=== PATIENT | female | born 1965 | race Caucasian/White ===

== ENCOUNTER 2019-04-12 07:02 | Inpatient (IN) | payer BC ==
[~2019-04-12 07:02] MED LIST: Acetaminophen 325 MG Tab PO SCH; Bisacodyl 5 MG Tab PO PRN; Lidocaine 1%/Sod Bicarbonate in NS 8.4% 1 ML Syringe IDERM PRN; Magnesium Hydroxide 400 MG/5 ML Susp 30 ML Cup PO PRN; Morphine 2 MG/ML Syringe IVPUSH PRN; Naloxone 0.4 MG/ML SDV IVPUSH PRN; Ondansetron 4 MG/2 ML SDV IVPUSH PRN; Pregabalin 25 MG Cap PO SCH; Scopolamine 1.5 MG Transdermal Patch TOP SCH; Sennosides 8.6 MG Tab PO PRN; Sodium Chloride 0.9% 10 ML Syringe FLUSH PRN; ceFAZolin 2 GM in Premix Bag 1 BAG IV SCH; oxyCODONE ER 10 MG TAB.ER PO SCH
[2019-04-12] MEDS ORDERED: Ondansetron 4 MG/2 ML SDV ONE (07:13)
[2019-04-12] MEDS ORDERED: fentaNYL 100 MCG/2 ML SDV ONE ×2 (07:14→10:33)
[2019-04-12] MEDS ORDERED: Propofol 200 MG/20 ML SDV ONE ×5 (07:14→09:43)
[2019-04-12] MEDS ORDERED: ceFAZolin 1 GM Vial ONE (07:14)
[2019-04-12] MEDS ORDERED: Midazolam 1 MG/ML 2 ML SDV ONE (07:14)
[2019-04-12] MEDS ORDERED: Lidocaine 1% 4 ML ONE ×2 (07:14→10:56)
[2019-04-12] MEDS ORDERED: Vancomycin 1 GM SDV ONE (07:19)
[2019-04-12] MEDS ORDERED: Acetaminophen 325 MG Tab PO SCH (07:23)
--- NOTE | 2019-04-12 07:34 | PCM.PREANE ---
Preanesthetic Assessment - Anesthesia/Transfusion/Family Hx Anesthesia History: Prior Anesthesia Reaction Family History of Anesthesia Reaction: No Transfusion History: No Prior Transfusion(s) - Review of Systems General: No Symptoms Pulmonary: No Symptoms Cardiovascular: Dyspnea on Exertion Gastrointestinal: No Symptoms Neurological: Numbness (legs ) Other: Reports: None - Physical Assessment NPO Status Date: 04/11/19 NPO Status Time: 00:00 Pulse: 76 O2 Sat by Pulse Oximetry: 95 Respiratory Rate: 16 Blood Pressure: 128/97 Temperature: 36.3 C Height: 1.63 m Weight: 100.062 kg ASA Class: 2 Mental Status: Alert & Oriented x3 Airway Class: Mallampati = 1 Dentition: Reports: Normal Dentition Thyro-Mental Finger Breadths: 3 Mouth Opening Finger Breadths: 3 ROM/Head Extension: Full Lungs: Clear to Auscultation, Normal Respiratory Effort Cardiovascular: Regular Rate, Regular Rhythm - Lab Values: Laboratory Last Values MRSA (PCR) Negative 04/03/19 13:42 - Imaging/EKG Impressions: On chart SR - Allergies Allergies/Adverse Reactions: Allergies Allergy/AdvReac Type Severity Reaction Status Date / Time Sulfa (Sulfonamide Allergy Itching Verified 04/11/19 12:15 Antibiotics) - Anesthesia Plan Pre-Op Medication Ordered: Beta Michelle Beta Michelle: Metoprolol Med Last Dose Date: 04/12/19 Med Last Dose Time: 06:30 - Acknowledgements Anesthesia Type Planned: Spinal Pt an Appropriate Candidate for the Planned Anesthesia: Yes Alternatives and Risks of Anesthesia Discussed w Pt/Guardian: Yes Pt/Guardian Understands and Agrees with Anesthesia Plan: Yes PreAnesthesia Questionnaire HEENT History: Reports: Impaired Vision Other HEENT History: Wears glasses Cardiovascular History: Reports: Hypertension, Other (See Below) Other Cardiovascular History: SVT with successful ablation in 2008 Respiratory History: Reports: None Gastrointestinal History: Reports: Other (See Below) Other Gastrointestinal History: lyphocytic colitis, diverticula Genitourinary History: Reports: None, Pyelonephritis, UTI, 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: Musculoskeletal History: Reports: Fibromyalgia, Osteoarthritis Other Musculoskeletal History: polyarthralgia, hypermobile joints, trochanertic bursitis of bilateral hips, pes anserinus bilateral knees, IT band syndrome Psychiatric History: Reports: Anxiety, Depression, Other (See Below) Other Psychiatric History: fatigue Endocrine/Metabolic History: Reports: Vitamin D Deficiency Other Endocrine/Metabolic History: pituitary microadenoma with HCC Hematologic History: Reports: Other (See Below) Other Hematologic History: HLA B27 POSITIVE Immunologic History: Reports: None Oncologic (Cancer) History: Reports: None Dermatologic History: Reports: None - Past Surgical History Head Surgeries/Procedures: Reports: None HEENT Surgical History: Reports: None Cardiovascular Surgical History: Reports: Cardiac Ablation Respiratory Surgical History: Reports: None GI Surgical History: Reports: Appendectomy, Cholecystectomy, Hernia, Inguinal, Hernia Repair/Other Female Surgical History: Reports: Hysterectomy Neurological Surgical History: Reports: C-Spine, Other (See Below) Other Neurological Surgeries/Procedures: C5 fusion in 2004 Musculoskeletal Surgical History: Reports: Other (See Below) Other Musculoskeletal Surgeries/Procedures:: C4/5 fusion Oncologic Surgical History: Reports: None Dermatological Surgical History: Reports: None - SUBSTANCE USE Smoking Status *Q: Never Smoker Tobacco Use Within Last Twelve Months: No Second Hand Smoke Exposure: No Days Per Week of Alcohol Use: 0 Number of Drinks Per Day: 0 Total Drinks Per Week: 0 Recreational Drug Use History: Yes Recreational Drug Type: Reports: Other (see below) - HOME MEDS Home Medications: Home Meds DULoxetine [Cymbalta] 60 mg PO DAILY 03/16/14 [History] Metoprolol Succinate [Toprol XL] 50 mg PO DAILY 03/16/14 [History] Cholecalciferol (Vitamin D3) [Vitamin D] 5,000 unit PO DAILY 03/27/16 [History] hydroCHLOROthiazide [Hydrochlorothiazide] 12.5 mg PO DAILY 03/27/16 [History] ALPRAZolam [Xanax] 0.25 mg PO Q12H PRN 04/11/19 [History] Gabapentin [Neurontin] 100 mg PO BEDTIME 04/11/19 [History] - CURRENT (IN HOUSE) MEDS Current Meds: Current Medications Acetaminophen (Tylenol) 975 mg PO ONETIME CAREY Stop: 04/12/19 13:00 Last Admin: 04/12/19 07:27 Dose: 975 mg Bisacodyl (Dulcolax) 5 mg PO DAILY PRN PRN Reason: Constipation Cyclobenzaprine HCl (Flexeril) 10 mg PO BID PRN PRN Reason: Spasms Docusate Sodium (Colace) 100 mg PO BID CAREY Famotidine (Pepcid) 20 mg PO Q12H [facility] Lactated Ringer's (Ringers, Lactated) 1,000 mls @ 125 mls/hr IV ASDIRECTED [facility] Stop: 04/12/19 23:00 Cefazolin Sodium/Dextrose 2 gm (/ Premix) 50 mls @ 100 mls/hr IV Q8H [facility] Stop: 04/12/19 22:29 Ketorolac Tromethamine (Toradol) 15 mg IVPUSH Q6H PRN PRN Reason: Pain Lidocaine/Sodium Bicarbonate (Buffered Lidocaine 1% In Ns 8.4%) 0.25 ml IDERM ONETIME PRN PRN Reason: Prior to IV Start Stop: 04/12/19 18:00 Magnesium Hydroxide (Milk Of Magnesia) 30 ml PO BID PRN PRN Reason: Constipation Morphine Sulfate (Morphine) 2 mg IVPUSH Q2H PRN PRN Reason: Breakthrough Pain Naloxone HCl (Narcan) 0.1 mg IVPUSH Q5M PRN PRN Reason: Oversedation Ondansetron HCl (Zofran) 4 mg IVPUSH Q6H PRN PRN Reason: Nausea/Vomiting Oxycodone HCl (Oxycontin) 10 mg PO ONETIME [facility] Stop: 04/12/19 13:00 Last Admin: 04/12/19 07:27 Dose: 10 mg Oxycodone/Acetaminophen (Percocet 325-5 Mg) 1 - 2 tab PO Q4H PRN PRN Reason: Pain Pregabalin (Lyrica) 50 mg PO ONETIME [facility] Stop: 04/12/19 13:00 Last Admin: 04/12/19 07:27 Dose: 50 mg Rivaroxaban (Xarelto) 10 mg PO DAILY [facility] Scopolamine (Transderm-Scop) 1.5 mg TOP ONETIME [facility] Stop: 04/12/19 18:00 Last Admin: 04/12/19 07:28 Dose: 1.5 mg Senna (Senna) 8.6 mg PO BID PRN PRN Reason: Constipation Sodium Chloride (Saline Flush) 10 ml FLUSH ASDIRECTED PRN PRN Reason: Keep Vein Open Stop: 04/12/19 18:00 Discontinued Medications Acetaminophen (Tylenol) 650 mg PO ONETIME [facility] Stop: 04/12/19 13:00 Bupivacaine HCl (Marcaine 0.25%) Confirm Administered Dose 30 ml .ROUTE .STK- MED ONE Stop: 04/12/19 07:20 Cefazolin Sodium (Ancef) Confirm Administered Dose 2 gm .ROUTE .STK-MED ONE Stop: 04/12/19 07:15 Cefazolin Sodium (Ancef) Confirm Administered Dose 2 gm .ROUTE .STK-MED ONE Stop: 04/12/19 07:20 Morphine Sulfate 8 mg/Epinephrine HCl 0.3 mg/Cefuroxime Sodium 750 mg/Ketorolac Tromethamine 30 mg/Sodium Chloride 27.9 ml 0 mg .XX ONETIME ONE Stop: 04/12/19 07:16 Fentanyl (Sublimaze) Confirm Administered Dose 100 mcg .ROUTE .STK-MED ONE Stop: 04/12/19 07:15 Lidocaine HCl (Xylocaine-Mpf 1%) Confirm Administered Dose 4 mls @ as directed .ROUTE .STK-MED ONE Stop: 04/12/19 07:15 Iodine (Iodine 2% Mild Tincture) Confirm Administered Dose 30 ml .ROUTE .STK- MED ONE Stop: 04/12/19 07:20 Midazolam HCl (Versed 1 Mg/Ml) Confirm Administered Dose 2 mg .ROUTE .STK-MED ONE Stop: 04/12/19 07:15 Ondansetron HCl (Zofran) Confirm Administered Dose 4 mg .ROUTE .STK-MED ONE Stop: 04/12/19 07:14 Propofol (Diprivan 20 Ml) Confirm Administered Dose 200 mg .ROUTE .STK-MED ONE Stop: 04/12/19 07:15 Tranexamic Acid (Cyklokapron) Confirm Administered Dose 1,000 mg .ROUTE .STK- MED ONE Stop: 04/12/19 07:20 Vancomycin HCl (Vancomycin) Confirm Administered Dose 1 gm .ROUTE .STK-MED ONE Stop: 04/12/19 07:20
[2019-04-12] MEDS: Lactated Ringers 1,000 ML IV SCH ×2 (07:35→11:06)
[2019-04-12] MEDS ORDERED: Ketorolac 15 MG/ML SDV IVPUSH PRN (08:00)
[2019-04-12] MEDS: Iodine/Sodium Iodide 2% Tincture 30 ML Bottle ONE ×2 (09:25→09:32)
[2019-04-12] MEDS: ceFAZolin 1 GM Vial ONE ×2 (09:25→09:38)
[2019-04-12] MEDS: Bupivacaine 0.25% 30 ML SDV ONE ×2 (09:26→09:43)
[2019-04-12] MEDS: Morphine 8 MG, EPINEPHrine 0.3 MG, Cefuroxime 750 MG, Ketorolac 30 MG, Sodium Chloride ... ONE ×15 (09:27→12:17)
[2019-04-12] MEDS: Vancomycin 1 GM SDV ONE ×2 (09:27→09:45)
[2019-04-12] MEDS ORDERED: ePHEDrine/Normal Saline 25 MG/5 ML Syringe ONE (09:31)
[2019-04-12] MEDS ORDERED: Ketorolac 30 MG/ML SDV IVPUSH PRN (10:27)
[2019-04-12] MEDS ORDERED: HYDROmorphone 0.5 MG/0.5 ML Syringe IVPUSH PRN (10:27)
--- NOTE | 2019-04-12 10:29 | PCM.POSTAN ---
POST ANESTHESIA ASSESSMENT - MENTAL STATUS Mental Status: Alert, Oriented - VITAL SIGNS Pulse Rate: 104 SaO2: 93 Resp Rate: 12 Blood Pressure: 95/60 Temperature: 36.7 C - RESPIRATORY Respiratory Status: Respiratory Rate WNL, Airway Patent, O2 Saturation Stable, Supplemental Oxygen - CARDIOVASCULAR CV Status: Pulse Rate WNL, Blood Pressure Stable - GASTROINTESTINAL GI Status: No Symptoms - PAIN Pain Score: 8 - POST OP HYDRATION Hydration Status: Adequate & Stable - OBSERVATIONS Free Text/Narrative:: no anesthesia complications noted
[2019-04-12] MEDS ORDERED: ALPRAZolam 0.25 MG Tab PO PRN (10:33)
[2019-04-12] MEDS: fentaNYL 100 MCG/2 ML SDV IVPUSH PRN ×2 (10:34→10:36)
[2019-04-12] MEDS ORDERED: Ropivacaine 0.5% 5 MG/ML 30 ML SDV ONE (10:44)
[2019-04-12] MEDS ORDERED: EPINEPHrine 1 MG/ML SDV ONE (10:44)
--- NOTE | 2019-04-12 10:49 | PCM.OPNOTE ---
- General Post-Op/Procedure Note Date of Surgery/Procedure: 04/12/19 Operative Procedure(s): right total knee arthroplasty Pre Op Diagnosis: right knee osteoarthrosis Post-Op Diagnosis: Same Anesthesia Technique: Local, MAC, Spinal Primary Surgeon: Theo aHnley Anesthesia Provider: [place] Heat Treat Worker: Ely Dimas Heat Treat Worker: Britt Thornton EBJosé Miguel in mLs: 550 Complications: None Condition: Good Free Text/Narrative:: size 4/4 9mm 32x10
--- NOTE | 2019-04-12 10:51 | PCM.CONS ---
H&P History of Present Illness - General Date of Service: 04/12/19 Admit Problem/Dx: Admission Diagnosis/Problem Admission Diagnosis/Problem Osteoarthritis of knee Source of Information: Patient, Old Records, Provider, RN, RN Notes Reviewed History Limitations: Reports: No Limitations - History of Present Illness Initial Comments - Free Text/Narative: Beni Pagan is a 53 yo female patient of Dr. Hanley who is post-operative day 0 of right TKA. Hospital medicine was consulted for post-operative medical care of the conditions listed below. At this time she is resting comfortably in bed. Pain is controlled. She denies any chest pain, shortness of breath, palpitations , nausea, or vomiting. She carries a history of: HTN, SVT s/p ablation in 2008, lyphocytic colitis, diverticula, recurrent UTI, fibromyalgia, osteoarthritis, polyarthralgia, hypermobile joint, Hx/o anserinus of bilateral knees, hx/o trochanteric bursitis of bilateral hips, hx/o IT band syndrome, Anxiety, depression, chronic fatigue, vitamin D deficiency, pituitary microadenoma with HCC, HLA B27 positive, C4/5 fusion. She was never a smoker. She is a full code. Her primary care provider is Yandy michael PA-C . Right Knee Pain Score (Numeric/FACES): 3 - Related Data Allergies/Adverse Reactions: Allergies Allergy/AdvReac Type Severity Reaction Status Date / Time Sulfa (Sulfonamide Allergy Itching Verified 04/12/19 07:53 Antibiotics) Home Medications: Home Meds DULoxetine [Cymbalta] 60 mg PO DAILY 03/16/14 [History] Metoprolol Succinate [Toprol XL] 50 mg PO DAILY 03/16/14 [History] Cholecalciferol (Vitamin D3) [Vitamin D] 5,000 unit PO DAILY 03/27/16 [History] hydroCHLOROthiazide [Hydrochlorothiazide] 12.5 mg PO DAILY 03/27/16 [History] ALPRAZolam [Xanax] 0.25 mg PO Q12H PRN 04/11/19 [History] Gabapentin [Neurontin] 100 mg PO BEDTIME 04/11/19 [History] Past Medical History HEENT History: Reports: Impaired Vision Other HEENT History: Wears glasses Cardiovascular History: Reports: Hypertension, Other (See Below) Other Cardiovascular History: SVT with successful ablation in 2008 Respiratory History: Reports: None Gastrointestinal History: Reports: Other (See Below) Other Gastrointestinal History: lyphocytic colitis, diverticula Genitourinary History: Reports: None, Pyelonephritis, UTI, 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: Musculoskeletal History: Reports: Fibromyalgia, Osteoarthritis Other Musculoskeletal History: polyarthralgia, hypermobile joints, trochanertic bursitis of bilateral hips, pes anserinus bilateral knees, IT band syndrome Psychiatric History: Reports: Anxiety, Depression, Other (See Below) Other Psychiatric History: fatigue Endocrine/Metabolic History: Reports: Vitamin D Deficiency Other Endocrine/Metabolic History: pituitary microadenoma with HCC Hematologic History: Reports: Other (See Below) Other Hematologic History: HLA B27 POSITIVE Immunologic History: Reports: None Oncologic (Cancer) History: Reports: None Dermatologic History: Reports: None - Past Surgical History Head Surgeries/Procedures: Reports: None HEENT Surgical History: Reports: None Cardiovascular Surgical History: Reports: Cardiac Ablation Respiratory Surgical History: Reports: None GI Surgical History: Reports: Appendectomy, Cholecystectomy, Hernia, Inguinal, Hernia Repair/Other Female Surgical History: Reports: Hysterectomy Neurological Surgical History: Reports: C-Spine, Other (See Below) Other Neurological Surgeries/Procedures: C5 fusion in 2004 Musculoskeletal Surgical History: Reports: Other (See Below) Other Musculoskeletal Surgeries/Procedures:: C4/5 fusion Oncologic Surgical History: Reports: None Dermatological Surgical History: Reports: None Social & Family History - Tobacco Use Smoking Status *Q: Never Smoker Second Hand Smoke Exposure: No - Caffeine Use Caffeine Use: Reports: Coffee - Alcohol Use Days Per Week of Alcohol Use: 0 Number of Drinks Per Day: 0 Total Drinks Per Week: 0 - Recreational Drug Use Recreational Drug Use: Yes Drug Use in Last 12 Months: Yes Recreational Drug Type: Reports: Other (see below) Other Recreational Drug Type: CBD oil- sublingual PRN pain Recreational Drug Use Frequency: Weekly H&P Review of Systems - Review of Systems: Review Of Systems: See Below General: Reports: No Symptoms. Denies: Fever, Chills HEENT: Reports: No Symptoms. Denies: Headaches, Sore Throat Pulmonary: Reports: No Symptoms. Denies: Shortness of Breath, Wheezing, Cough, Sputum Cardiovascular: Reports: No Symptoms. Denies: Chest Pain, Palpitations, Dyspnea on Exertion, Edema Gastrointestinal: Reports: No Symptoms. Denies: Abdominal Pain, Constipation, Diarrhea, Nausea, Vomiting Genitourinary: Reports: No Symptoms. Denies: Pain Musculoskeletal: Reports: Leg Pain Skin: Reports: No Symptoms. Denies: Cyanosis Psychiatric: Reports: No Symptoms. Denies: Confusion Neurological: Reports: Numbness (improving ). Denies: Dizziness Hematologic/Lymphatic: Reports: No Symptoms Immunologic: Reports: No Symptoms Exam - Exam Exam: See Below - Vital Signs Vital Signs: Last Vital Signs Temp 98.1 F 04/12/19 10:29 Pulse 104 H 04/12/19 10:29 Resp 11 L 04/12/19 10:45 BP 113/79 04/12/19 10:45 Pulse Ox 100 04/12/19 10:45 Weight: 220 lb 9.6 oz - Exam Quality Assessment: DVT Prophylaxis General: Alert, Oriented, Cooperative HEENT: Conjunctiva Clear, EACs Clear, EOMI, Hearing Intact, Mucosa Moist & [place] , Nares Patent, PERRLA Neck: Supple, Trachea Midline Lungs: Clear to Auscultation, Normal Respiratory Effort Cardiovascular: Regular Rate, Regular Rhythm GI/Abdominal Exam: Normal Bowel Sounds, Soft, Non-Tender, No Organomegaly, No Distention (Female) Exam: Deferred Rectal (Female) Exam: Deferred Back Exam: Normal Inspection, Full Range of Motion Extremities: No Pedal Edema, Normal Capillary Refill, Leg Pain, Limited Range of Motion, Other (Bandage in place on right leg. Bandage is dry and intact. Cooling pack in place ) Peripheral Pulses: 2+: Radial (L), Radial (R), Dorsalis Pedis (L), Dorsalis Pedis (R) Skin: Warm, Dry, Intact Neurological: Cranial Nerves Intact (Grossly ) Neuro Extensive - Mental Status: Alert, Oriented x3, Normal Mood/Affect Consult PN Assessment/Plan POD#: 0 Procedures: Procedures ASSAY OF LIPASE (03/27/16) ASSAY OF TROPONIN QUANT (12/24/14) BX BREAST 1ST LESION STRTCTC (09/26/15) COMPLETE CBC W/AUTO DIFF WBC (03/27/16) COMPREHEN METABOLIC PANEL (03/27/16) CT ABD & PELV W/CONTRAST (03/27/16) ECG/MONITORING AND ANALYSIS (12/25/14) EMERGENCY DEPT VISIT (03/27/16) FIBRIN DEGRADATION QUANT (12/24/14) HEPATOBIL SYST IMAGE W/DRUG (02/22/15) HYDRATE IV INFUSION ADD-ON (03/27/16) HYDRATION IV INFUSION INIT (03/16/14) MRI BRAIN STEM W/O & W/DYE (05/17/15) MRI CHEST SPINE W/O DYE (04/25/14) MRI LUMBAR SPINE W/O DYE (04/26/14) MRI NECK SPINE W/O & W/DYE (04/25/14) REMOTE 30 DAY ECG REV/REPORT (12/25/14) ROUTINE VENIPUNCTURE (03/27/16) THER/PROPH/DIAG INJ IV PUSH (03/27/16) TISSUE EXAM BY PATHOLOGIST (09/26/15) TX/PRO/DX INJ NEW DRUG ADDON (03/27/16) URINALYSIS AUTO W/SCOPE (03/27/16) X-RAY EXAM SURGICAL SPECIMEN (09/26/15) (1) S/P total knee arthroplasty SNOMED Code(s): 4959976152332, 443752486, 4865373467915 Code(s): Z96.659 - PRESENCE OF UNSPECIFIED ARTIFICIAL KNEE JOINT Priority: High Current Visit: Yes Qualifiers: Laterality: right Qualified Code(s): Z96.651 - Presence of right artificial knee joint (2) Osteoarthritis SNOMED Code(s): 983806536 Code(s): M19.90 - UNSPECIFIED OSTEOARTHRITIS, UNSPECIFIED SITE Priority: High Current Visit: Yes Qualifiers: Osteoarthritis location: knee Osteoarthritis type: primary Laterality: right Qualified Code(s): M17.11 - Unilateral primary osteoarthritis, right knee (3) HTN (hypertension) SNOMED Code(s): 76848897 Code(s): I10 - ESSENTIAL (PRIMARY) HYPERTENSION Priority: Medium Current Visit: Yes Qualifiers: Hypertension type: unspecified Qualified Code(s): I10 - Essential (primary ) hypertension (4) H/O supraventricular tachycardia SNOMED Code(s): 601548607793042 Code(s): Z86.79 - PERSONAL HISTORY OF OTHER DISEASES OF THE CIRCULATORY SYSTEM Priority: Medium Current Visit: No (5) History of cardiac radiofrequency ablation SNOMED Code(s): 819456302, 250307478 Code(s): Z98.890 - OTHER SPECIFIED POSTPROCEDURAL STATES Priority: Medium Current Visit: No (6) Lymphocytic colitis SNOMED Code(s): 13693834 Code(s): K52.832 - LYMPHOCYTIC COLITIS Priority: Low Current Visit: No (7) Recurrent UTI SNOMED Code(s): 567730646 Code(s): N39.0 - URINARY TRACT INFECTION, SITE NOT SPECIFIED Priority: Medium Current Visit: No (8) Fibromyalgia SNOMED Code(s): 567510878 Code(s): M79.7 - FIBROMYALGIA Priority: Medium Current Visit: No (9) Polyarthralgia SNOMED Code(s): 49462287 Code(s): M25.50 - PAIN IN UNSPECIFIED JOINT Priority: Medium Current Visit: No (10) Hypermobile joints SNOMED Code(s): 224763313 Code(s): M24.9 - JOINT DERANGEMENT, UNSPECIFIED Priority: Low Current Visit: No (11) Vitamin D deficiency SNOMED Code(s): 72350236 Code(s): E55.9 - VITAMIN D DEFICIENCY, UNSPECIFIED Priority: Low Current Visit: No (12) HLA B27 (HLA B27 positive) SNOMED Code(s): 652924201, 223387059 Code(s): Z15.89 - GENETIC SUSCEPTIBILITY TO OTHER DISEASE Priority: Medium Current Visit: No (13) History of fusion of cervical spine SNOMED Code(s): 5113516844652, 6630833382699 Code(s): Z98.1 - ARTHRODESIS STATUS Priority: Medium Current Visit: No (14) Anxiety SNOMED Code(s): 85061415 Code(s): F41.9 - ANXIETY DISORDER, UNSPECIFIED Priority: Low Current Visit: No Problem List Initiated/Reviewed/Updated: Yes Plan: I/P: Acute: S/P right total knee arthroplasty - post-operative day 0 -DVT prophylaxis and pain management per primary care team -PT/OT -IS/RT -Monitor oxygen saturation -Titrate oxygen as needed -Home medications reviewed - Hold HCTZ tomorrow -Vital signs stable -Monitor labs -Pre-operative Hgb was 15.7 -Pre-operative GFR was 66 Osteoarthritis of right knee -Pain management per primary care team Chronic: HTN SVT s/p ablation in 2008 lyphocytic colitis diverticula recurrent UTI fibromyalgia osteoarthritis polyarthralgia hypermobile joint Hx/o anserinus of bilateral knees hx/o trochanteric bursitis of bilateral hips hx/o IT band syndrome Anxiety depression chronic fatigue vitamin D deficiency pituitary microadenoma with HCC HLA B27 positive C4/5 fusion Plan: CM for discharge planning GI prophylaxis Home medications as indicated Other orders as listed above Routine AM labs She is a full code. Her PCP is Yandy Michael PA-C Thank you for allowing us to participate in the care of this patient!! Requesting Provider: Dr. Hanley Date Consult Requested: 04/12/19 Patient History Reviewed: Yes Admission H&P Reviewed: Yes Time Spent (in minutes): 40
--- NOTE | 2019-04-12 11:13 | PCM.SN ---
- Free Text/Narrative Note: Right selective femoral nerve block at the adductor canal for post-procedure pain control under US guidance requested by Dr. Hanley. Time Out: 1051 Start: 1059 End: 1103 Chart reviewed. Consent signed. Questions answered. Appropriate monitors applied. Time out performed. 1% lidocaine 4 ml local injected since spinal wore off. Right mid-shaft femur identified with ultrasound, scanning medially of femur, the femoral artery in the adductor canal visualized, and the femoral nerve located laterally to the artery. The skin was prepped lateral to the ultrasound probe with chlorahexadine times two. The 21ga 4 insulated block needle was inserted under direct ultrasound guidance into the adductor canal. 25mL of 0.5% ropivacaine with 1:200,000 epinephrine was injected circumferentially around the nerve with intermittent negative aspiration noted. Patient tolerated the procedure well. Sterile technique noted along with sterile gloves, mask, and sterile probe cover. See picture on progress note and vital signs on nurses notes. Block completed in PACU. Feli Terry CRNA
--- NOTE | 2019-04-12 11:14 | OR ---
DATE OF OPERATION: 04/12/2019 SURGEON: Theo Hanley MD OPERATION PERFORMED: Right total knee arthroplasty. PREOPERATIVE DIAGNOSIS: Right knee osteoarthrosis. POSTOPERATIVE DIAGNOSIS: Right knee osteoarthrosis. ANESTHESIA: Local MAC with spinal. ANESTHESIA PROVIDER: Eliud Day CRNA. EDUCATIONAL PROGRAM ASSISTANT: Ely Dimas PA-C, and Britt Thornton LPN. ESTIMATED BLOOD LOSS: 550 mL. COMPLICATIONS: None. CONDITION: Stable. IMPLANTS: 1. [place] size 4 press-fit CR femur. 2. Yina size 4 press-fit tibial base plate. 3. [place] size 4, 9 mm CS polyethylene insert. 4. [place] size 32 x 10 mm asymmetric press fit patella. DESCRIPTION OF PROCEDURE: The patient was identified in the preop holding area. Proper site was marked and identified by the surgeon. The patient was taken back to the operating theater. After adequate anesthesia, the patient's right lower extremity had a nonsterile tourniquet applied and it was sterilely prepped and draped in the usual sterile fashion. OR time-out was performed. The patient received 2 g IV Ancef. At this time, the right lower extremity was exsanguinated. Tourniquet was insufflated to 300 mmHg. Standard medial parapatellar incision was made. Medial parapatellar arthrotomy was created. Deep fibers of the MCL were raised and anterior fat pad was resected. At this time, attention was turned to the patella. Patella measured 22, it was resected to a 13 for a 32 x 10 mm patella. Drill holes were then drilled and found to be in adequate position. The drill was then drilled in the distal femur and the intramedullary distal femoral cutting guide was then placed. 8 mm was resected off the distal femur and was found to be an adequate resection. Sizing guide was placed. It was found to be a size 4 press-fit CR femur that was shown on the implant record at the beginning of this dictation. The drill holes were drilled for the epicondylar axis using [place] line and epicondyles as reference. At this time, the 4-in - 1 cutting block was placed. An anterior posterior and anterior and posterior chamfer cuts were then completed. Attention was turned to the tibia. The posterior medial lateral retractors were placed. The extramedullary tibial guide was placed. It was placed in the old footprint of the ACL. It was aligned with the center of the ankle and 0 degrees of slope, 9 mm was then resected off the unaffected side. There was found to be an acceptable reduction. At this time, posterior osteophytes were removed along with medial and lateral meniscus. A trial implant was placed with a correct sized tibia that was mentioned at the beginning of the dictation. A Yina size 4, 9 mm CS polyethylene insert was then placed. The patient's knee was brought through range of motion. The patella was tracking centrally and was stable to varus and valgus stress. Alignment was found to be roughly at 0 degrees. The tibia was stamped and drilled in proper rotation. The universal tibial base plate was impacted in place. Next, the Yina size 4 press-fit CR femur impacted into place and the [place] size 4, 9 mm CS polyethylene insert was placed. The patient's knee was brought into full extension. The patella was then press-fit in place at this time. Tourniquet was deflated. One liter dilute Betadine solution was irrigated through the knee along with 3 L of pulse lavage irrigation with Ancef. Periarticular injection was then completed. The patient's knee was brought through a range of motion. Knee was found to be stable to varus valgus stress, the patella was tracking centrally with full range of motion. At this time, a #2 barbed suture was used for closure of the medial parapatellar arthrotomy. Topical tranexamic acid was placed. 2-0 Vicryl was used subcutaneously, Prineo was used for the skin. The patient tolerated the procedure well and was sent to the PACU in stable condition. FABIANA /[id number] MTDD
--- NOTE | 2019-04-12 12:23 | CR ---
Right knee: AP and lateral portable views of the right knee were obtained. Comparison: No prior right knee exam. Knee prosthesis is seen. Components are aligned. Soft tissue air is noted from the surgical procedure. Underlying bony structures are intact. Impression: 1. Satisfactory postop radiographic appearance of recently placed right knee prosthesis. Diagnostic code #2
[2019-04-12] MEDS: Acetaminophen/oxyCODONE 325-5 MG Tab PO PRN ×2 (14:23→21:35)
[2019-04-12] MEDS: ceFAZolin 2 GM in Premix Bag 1 BAG IV SCH ×2 (14:25→23:03)
[2019-04-12] MEDS: Ketorolac 15 MG/ML SDV IVPUSH PRN (19:00)
[2019-04-12] MEDS ORDERED: Gabapentin 100 MG Cap PO SCH (21:00)
[2019-04-12] MEDS: Famotidine 20 MG Tab PO SCH (21:32)
[2019-04-12] MEDS: Docusate Sodium 100 MG Cap PO SCH (21:32)
[2019-04-12] MEDS: Cyclobenzaprine 10 MG Tab PO PRN (23:03)
[2019-04-13] MEDS: Ketorolac 15 MG/ML SDV IVPUSH PRN (02:38)
[2019-04-13] MEDS: Acetaminophen/oxyCODONE 325-5 MG Tab PO PRN ×3 (02:39→11:09)
--- NOTE | 2019-04-13 06:26 | PCM.CONSN ---
- General Info Date of Service: 04/13/19 Admission Dx/Problem (Free Text): Admission Diagnosis/Problem Admission Diagnosis/Problem Osteoarthritis of knee Functional Status: Reports: Pain Controlled, Tolerating Diet, Ambulating, Urinating, Incentive Spirometry. Denies: New Symptoms - Review of Systems General: Reports: No Symptoms. Denies: Fever, Chills HEENT: Reports: No Symptoms. Denies: Headaches, Sore Throat Pulmonary: Reports: No Symptoms. Denies: Shortness of Breath, Cough, Sputum, Wheezing Cardiovascular: Reports: No Symptoms. Denies: Chest Pain, Palpitations, Dyspnea on Exertion, Edema Gastrointestinal: Reports: No Symptoms. Denies: Abdominal Pain, Constipation, Diarrhea, Nausea, Vomiting Genitourinary: Reports: No Symptoms. Denies: Pain Musculoskeletal: Reports: Leg Pain Skin: Reports: No Symptoms Neurological: Reports: No Symptoms. Denies: Confusion Psychiatric: Reports: No Symptoms - Patient Data Vitals - Most Recent: Last Vital Signs Temp 97.9 F 04/13/19 04:32 Pulse 52 L 04/13/19 04:32 Resp 18 04/13/19 04:32 BP 105/51 L 04/13/19 04:32 Pulse Ox 93 L 04/13/19 04:32 Weight - Most Recent: 211 lb 1 oz I&O - Last 24 Hours: Intake & Output 04/12/19 04/12/19 04/13/19 14:59 22:59 06:59 Intake Total 450 550 Output Total 250 1650 Balance 200 -1100 Med Orders - Current: Current Medications Alprazolam (Xanax) 0.25 mg PO Q12H PRN PRN Reason: Anxiety Bisacodyl (Dulcolax) 5 mg PO DAILY PRN PRN Reason: Constipation Cholecalciferol (Vitamin D3) 5,000 unit PO DAILY [facility] Cyclobenzaprine HCl (Flexeril) 10 mg PO BID PRN PRN Reason: Spasms Last Admin: 04/12/19 23:03 Dose: 10 mg Docusate Sodium (Colace) 100 mg PO BID [facility] Last Admin: 04/12/19 21:32 Dose: 100 mg Duloxetine HCl (Cymbalta) 60 mg PO DAILY [facility] Famotidine (Pepcid) 20 mg PO Q12H [facility] Last Admin: 04/12/19 21:32 Dose: 20 mg Gabapentin (Neurontin) 100 mg PO BEDTIME [facility] Last Admin: 04/12/19 21:33 Dose: 100 mg Hydrochlorothiazide (Hydrochlorothiazide) 12.5 mg PO DAILY [facility] Cefazolin Sodium/Dextrose 2 gm (/ Premix) 50 mls @ 100 mls/hr IV Q8H [facility] Stop: 04/13/19 07:29 Last Admin: 04/12/19 23:03 Dose: 100 mls/hr Ketorolac Tromethamine (Toradol) 15 mg IVPUSH Q6H PRN PRN Reason: Pain Stop: 04/13/19 11:01 Last Admin: 04/13/19 02:38 Dose: 15 mg Magnesium Hydroxide (Milk Of Magnesia) 30 ml PO BID PRN PRN Reason: Constipation Metoprolol Succinate (Toprol Xl) 50 mg PO DAILY [facility] Morphine Sulfate (Morphine) 2 mg IVPUSH Q2H PRN PRN Reason: Breakthrough Pain Naloxone HCl (Narcan) 0.1 mg IVPUSH Q5M PRN PRN Reason: Oversedation Ondansetron HCl (Zofran) 4 mg IVPUSH Q6H PRN PRN Reason: Nausea/Vomiting Last Admin: 04/12/19 14:33 Dose: 4 mg Oxycodone/Acetaminophen (Percocet 325-5 Mg) 1 - 2 tab PO Q4H PRN PRN Reason: Pain Last Admin: 04/13/19 02:39 Dose: 2 tab Rivaroxaban (Xarelto) 10 mg PO DAILY [facility] Senna (Senna) 8.6 mg PO BID PRN PRN Reason: Constipation Discontinued Medications Acetaminophen (Tylenol) 650 mg PO ONETIME [facility] Stop: 04/12/19 13:00 Acetaminophen (Tylenol) 975 mg PO ONETIME [facility] Stop: 04/12/19 13:00 Last Admin: 04/12/19 07:27 Dose: 975 mg Bupivacaine HCl (Marcaine 0.25%) Confirm Administered Dose 30 ml .ROUTE .STK- MED ONE Stop: 04/12/19 07:20 Last Admin: 04/12/19 09:43 Dose: 30 ml Cefazolin Sodium (Ancef) Confirm Administered Dose 2 gm .ROUTE .STK-MED ONE Stop: 04/12/19 07:15 Cefazolin Sodium (Ancef) Confirm Administered Dose 2 gm .ROUTE .STK-MED ONE Stop: 04/12/19 07:20 Last Admin: 04/12/19 09:38 Dose: 2 gm Morphine Sulfate 8 mg/Epinephrine HCl 0.3 mg/Cefuroxime Sodium 750 mg/Ketorolac Tromethamine 30 mg/Sodium Chloride 27.9 ml 0 mg .XX ONETIME ONE Stop: 04/12/19 07:16 Last Admin: 04/12/19 12:17 Dose: Not Given Ephedrine Sulfate (Ephedrine In Ns) Confirm Administered Dose 25 mg .ROUTE .STK- MED ONE Stop: 04/12/19 09:32 Epinephrine HCl (Adrenalin) Confirm Administered Dose 1 mg .ROUTE .STK-MED ONE Stop: 04/12/19 10:45 Fentanyl (Sublimaze) Confirm Administered Dose 100 mcg .ROUTE .STK-MED ONE Stop: 04/12/19 07:15 Fentanyl (Sublimaze) 50 mcg IVPUSH Q5M PRN PRN Reason: Pain Stop: 04/12/19 18:00 Last Admin: 04/12/19 10:36 Dose: 100 mcg Fentanyl (Sublimaze) Confirm Administered Dose 200 mcg .ROUTE .STK-MED ONE Stop: 04/12/19 10:34 Last Admin: 04/12/19 10:36 Dose: Not Given Hydromorphone HCl (Dilaudid) 0.5 mg IVPUSH Q10M PRN PRN Reason: Pain (severe 7-10) Stop: 04/12/19 18:00 Last Admin: 04/12/19 11:21 Dose: 0.5 mg Lactated Ringer's (Ringers, Lactated) 1,000 mls @ 125 mls/hr IV ASDIRECTED [facility] Stop: 04/12/19 23:00 Last Admin: 04/12/19 11:06 Dose: 125 mls/hr Cefazolin Sodium/Dextrose 2 gm (/ Premix) 50 mls @ 100 mls/hr IV Q8H [facility] Stop: 04/12/19 22:29 Last Admin: 04/12/19 12:19 Dose: Not Given Lidocaine HCl (Xylocaine-Mpf 1%) Confirm Administered Dose 4 mls @ as directed .ROUTE .STK-MED ONE Stop: 04/12/19 07:15 Lidocaine HCl (Xylocaine-Mpf 1%) Confirm Administered Dose 4 mls @ as directed .ROUTE .STK-MED ONE Stop: 04/12/19 10:57 Iodine (Iodine 2% Mild Tincture) Confirm Administered Dose 30 ml .ROUTE .STK- MED ONE Stop: 04/12/19 07:20 Last Admin: 04/12/19 09:32 Dose: 18 ml Ketorolac Tromethamine (Toradol) 15 mg IVPUSH Q6H PRN PRN Reason: Pain Ketorolac Tromethamine (Toradol) 30 mg IVPUSH ONETIME PRN PRN Reason: Pain Last Admin: 04/12/19 10:53 Dose: 30 mg Lidocaine/Sodium Bicarbonate (Buffered Lidocaine 1% In Ns 8.4%) 0.25 ml IDERM ONETIME PRN PRN Reason: Prior to IV Start Stop: 04/12/19 18:00 Last Admin: 04/12/19 07:30 Dose: 0.25 ml Midazolam HCl (Versed 1 Mg/Ml) Confirm Administered Dose 2 mg .ROUTE .STK-MED ONE Stop: 04/12/19 07:15 Ondansetron HCl (Zofran) Confirm Administered Dose 4 mg .ROUTE .STK-MED ONE Stop: 04/12/19 07:14 Oxycodone HCl (Oxycontin) 10 mg PO ONETIME [facility] Stop: 04/12/19 13:00 Last Admin: 04/12/19 07:27 Dose: 10 mg Pregabalin (Lyrica) 50 mg PO ONETIME [facility] Stop: 04/12/19 13:00 Last Admin: 04/12/19 07:27 Dose: 50 mg Propofol (Diprivan 20 Ml) Confirm Administered Dose 200 mg .ROUTE .STK-MED ONE Stop: 04/12/19 07:15 Propofol (Diprivan 20 Ml) Confirm Administered Dose 200 mg .ROUTE .STK-MED ONE Stop: 04/12/19 08:43 Propofol (Diprivan 20 Ml) Confirm Administered Dose 200 mg .ROUTE .STK-MED ONE Stop: 04/12/19 09:01 Propofol (Diprivan 20 Ml) Confirm Administered Dose 200 mg .ROUTE .STK-MED ONE Stop: 04/12/19 09:21 Propofol (Diprivan 20 Ml) Confirm Administered Dose 200 mg .ROUTE .STK-MED ONE Stop: 04/12/19 09:44 Ropivacaine (Naropin 0.5%) Confirm Administered Dose 30 ml .ROUTE .STK-MED ONE Stop: 04/12/19 10:45 Scopolamine (Transderm-Scop) 1.5 mg TOP ONETIME [facility] Stop: 04/12/19 18:00 Last Admin: 04/12/19 07:28 Dose: 1.5 mg Sodium Chloride (Saline Flush) 10 ml FLUSH ASDIRECTED PRN PRN Reason: Keep Vein Open Stop: 04/12/19 18:00 Tranexamic Acid (Cyklokapron) Confirm Administered Dose 1,000 mg .ROUTE .STK- MED ONE Stop: 04/12/19 07:20 Last Admin: 04/12/19 09:50 Dose: 1,000 mg Vancomycin HCl (Vancomycin) Confirm Administered Dose 1 gm .ROUTE .STK-MED ONE Stop: 04/12/19 07:20 Vancomycin HCl (Vancomycin) Confirm Administered Dose 1 gm .ROUTE .STK-MED ONE Stop: 04/12/19 07:57 Last Admin: 04/12/19 09:45 Dose: 1 gm - Exam Quality Assessment: DVT Prophylaxis General: Alert, Oriented, Cooperative, No Acute Distress HEENT: Pupils Equal, Pupils Reactive, EOMI, Mucous Membr. Moist/[place] Neck: Supple, Trachea Midline Lungs: Clear to Auscultation, Normal Respiratory Effort Cardiovascular: Regular Rate, Regular Rhythm GI/Abdominal Exam: Normal Bowel Sounds, Soft, Non-Tender, No Organomegaly, No Distention (Female) Exam: Deferred Back Exam: Normal Inspection, Full Range of Motion Extremities: No Pedal Edema, Normal Capillary Refill, Leg Pain, Limited Range of Motion, Other (Bandage in place on right leg. ) Peripheral Pulses: 2+: Radial (L), Radial (R), Dorsalis Pedis (L), Dorsalis Pedis (R) Skin: Warm, Dry, Intact Wound/Incisions: Dressing Dry and Intact, No Drainage Neurological: No New Focal Deficit Psy/Mental Status: Alert, Normal Affect, Normal Mood Consult PN Assessment/Plan POD#: 1 Procedures: Procedures ASSAY OF LIPASE (03/27/16) ASSAY OF TROPONIN QUANT (12/24/14) BX BREAST 1ST LESION STRTCTC (09/26/15) COMPLETE CBC W/AUTO DIFF WBC (03/27/16) COMPREHEN METABOLIC PANEL (03/27/16) CT ABD & PELV W/CONTRAST (03/27/16) ECG/MONITORING AND ANALYSIS (12/25/14) EMERGENCY DEPT VISIT (03/27/16) FIBRIN DEGRADATION QUANT (12/24/14) HEPATOBIL SYST IMAGE W/DRUG (02/22/15) HYDRATE IV INFUSION ADD-ON (03/27/16) HYDRATION IV INFUSION INIT (03/16/14) MRI BRAIN STEM W/O & W/DYE (05/17/15) MRI CHEST SPINE W/O DYE (04/25/14) MRI LUMBAR SPINE W/O DYE (04/26/14) MRI NECK SPINE W/O & W/DYE (04/25/14) REMOTE 30 DAY ECG REV/REPORT (12/25/14) ROUTINE VENIPUNCTURE (03/27/16) THER/PROPH/DIAG INJ IV PUSH (03/27/16) TISSUE EXAM BY PATHOLOGIST (09/26/15) TX/PRO/DX INJ NEW DRUG ADDON (03/27/16) URINALYSIS AUTO W/SCOPE (03/27/16) X-RAY EXAM SURGICAL SPECIMEN (09/26/15) (1) S/P total knee arthroplasty SNOMED Code(s): 0905104123466, 727556645, 0732493560886 Code(s): Z96.659 - PRESENCE OF UNSPECIFIED ARTIFICIAL KNEE JOINT Priority: High Current Visit: Yes Qualifiers: Laterality: right Qualified Code(s): Z96.651 - Presence of right artificial knee joint (2) Osteoarthritis SNOMED Code(s): 457436861 Code(s): M19.90 - UNSPECIFIED OSTEOARTHRITIS, UNSPECIFIED SITE Priority: High Current Visit: Yes Qualifiers: Osteoarthritis location: knee Osteoarthritis type: primary Laterality: right Qualified Code(s): M17.11 - Unilateral primary osteoarthritis, right knee (3) HTN (hypertension) SNOMED Code(s): 75675799 Code(s): I10 - ESSENTIAL (PRIMARY) HYPERTENSION Priority: Medium Current Visit: Yes Qualifiers: Hypertension type: unspecified Qualified Code(s): I10 - Essential (primary ) hypertension (4) H/O supraventricular tachycardia SNOMED Code(s): 030119063034733 Code(s): Z86.79 - PERSONAL HISTORY OF OTHER DISEASES OF THE CIRCULATORY SYSTEM Priority: Medium Current Visit: No (5) History of cardiac radiofrequency ablation SNOMED Code(s): 965909397, 310999243 Code(s): Z98.890 - OTHER SPECIFIED POSTPROCEDURAL STATES Priority: Medium Current Visit: No (6) Lymphocytic colitis SNOMED Code(s): 87142320 Code(s): K52.832 - LYMPHOCYTIC COLITIS Priority: Low Current Visit: No (7) Recurrent UTI SNOMED Code(s): 009851660 Code(s): N39.0 - URINARY TRACT INFECTION, SITE NOT SPECIFIED Priority: Medium Current Visit: No (8) Fibromyalgia SNOMED Code(s): 736876220 Code(s): M79.7 - FIBROMYALGIA Priority: Medium Current Visit: No (9) Polyarthralgia SNOMED Code(s): 51320949 Code(s): M25.50 - PAIN IN UNSPECIFIED JOINT Priority: Medium Current Visit: No (10) Hypermobile joints SNOMED Code(s): 398527539 Code(s): M24.9 - JOINT DERANGEMENT, UNSPECIFIED Priority: Low Current Visit: No (11) Vitamin D deficiency SNOMED Code(s): 91370060 Code(s): E55.9 - VITAMIN D DEFICIENCY, UNSPECIFIED Priority: Low Current Visit: No (12) HLA B27 (HLA B27 positive) SNOMED Code(s): 046267451, 012379198 Code(s): Z15.89 - GENETIC SUSCEPTIBILITY TO OTHER DISEASE Priority: Medium Current Visit: No (13) History of fusion of cervical spine SNOMED Code(s): 2899081315062, 7740967545799 Code(s): Z98.1 - ARTHRODESIS STATUS Priority: Medium Current Visit: No (14) Anxiety SNOMED Code(s): 03844739 Code(s): F41.9 - ANXIETY DISORDER, UNSPECIFIED Priority: Low Current Visit: No (15) Transaminitis SNOMED Code(s): 047139170, 248794625 Code(s): R74.0 - NONSPEC ELEV OF LEVELS OF TRANSAMNS & LACTIC ACID DEHYDRGNSE Priority: High Current Visit: Yes Problem List Initiated/Reviewed/Updated: Yes Plan: I/P: Acute: S/P right total knee arthroplasty - post-operative day 1 -DVT prophylaxis and pain management per primary care team -PT/OT -IS/RT -Monitor oxygen saturation -Titrate oxygen as needed -Home medications reviewed - Hold HCTZ tomorrow -Vital signs stable -Monitor labs -Pre-operative Hgb was 15.7; Now 11.8 -Pre-operative GFR was 66; Now 58 Osteoarthritis of right knee -Pain management per primary care team Post-operative transaminitis -AST 482 -ALT 857 -Alk phos 131 -Contacted PCP - Will have CMP tomorrow 04/14/19 with results to PCP. Chronic: HTN SVT s/p ablation in 2008 lyphocytic colitis diverticula recurrent UTI fibromyalgia osteoarthritis polyarthralgia hypermobile joint Hx/o anserinus of bilateral knees hx/o trochanteric bursitis of bilateral hips hx/o IT band syndrome Anxiety depression chronic fatigue vitamin D deficiency pituitary microadenoma with HCC HLA B27 positive C4/5 fusion Plan: CM for discharge planning GI prophylaxis Home medications as indicated Other orders as listed above Routine AM labs She is a full code. Her PCP is Yandy Michael PA-C Overall from a hospitalist standpoint clinically Beni is doing pretty well. She has been ambulating and working with therapies. She has urinated and is off of oxygen. Her vital signs have remained stable. There have been no nursing or patient concerns. Her labs have been stable for the most part, however her liver enzymes have been elevated today as above. Her PCP was contacted and discussion was had over how she would like us to have her follow-up. She requested we have a CMP drawn at [facility] tomorrow 04/14/19 with results to her. Yandy will be watching for her lab results and follow-up with Beni as needed. This plan was explained to the patient and her family in the room and she was in agreement. Primary team will change prescriptions to avoid Tylenol. She is cleared for discharge pending primary team and PT/OT agreement. Thank you for allowing us to participate in the care of this patient!!
[2019-04-13] MEDS: ceFAZolin 2 GM in Premix Bag 1 BAG IV SCH (06:59)
--- NOTE | 2019-04-13 07:05 | PCM.SURGPN ---
- General Info Date of Service: 04/13/19 POD#: 1 Functional Status: Reports: Pain Controlled, Tolerating Diet, Ambulating, Urinating, Incentive Spirometry, Other (The pt states she is doing well.) - Patient Data Vitals - Most Recent: Last Vital Signs Temp 97.9 F 04/13/19 04:32 Pulse 52 L 04/13/19 04:32 Resp 18 04/13/19 04:32 BP 105/51 L 04/13/19 04:32 Pulse Ox 93 L 04/13/19 04:32 Weight - Most Recent: 211 lb 1 oz I&O - Last 24 Hours: Intake & Output 04/12/19 04/13/19 04/13/19 22:59 06:59 14:59 Intake Total 450 550 Output Total 250 1650 Balance 200 -1100 Lab Results Last 24 Hrs: Laboratory Results - last 24 hr 04/13/19 04/13/19 Range/Units 05:43 05:43 WBC 7.30 (3.98-10.04) K/mm3 RBC 3.87 L (3.98-5.22) M/mm3 Hgb 11.8 D (11.2-15.7) gm/L Hct 34.8 (34.1-44.9) % MCV 89.9 (79.4-94.8) fl MCH 30.5 (25.6-32.2) pg MCHC 33.9 (32.2-35.5) g/dl RDW Std Deviation 42.4 (36.4-46.3) fL Plt Count 256 (182-369) K/mm3 MPV 10.5 (9.4-12.3) fl Sodium 137 (136-145) mEq/L Potassium 4.3 (3.5-5.1) mEq/L Chloride 103 (98-107) mEq/L Carbon Dioxide 28 (21-32) mEq/L Anion Gap 10.3 (5-15) BUN 18 (7-18) mg/dL Creatinine 1.0 (0.55-1.02) mg/dL Est Cr Clr Drug Dosing 57.47 mL/min Estimated GFR (MDRD) 58 (>60) mL/min BUN/Creatinine Ratio 18.0 (14-18) Glucose 123 H (74-106) mg/dL Calcium 8.8 (8.5-10.1) mg/dL Total Bilirubin 0.7 (0.2-1.0) mg/dL AST 482 H (15-37) U/L ALT 857 H (14-59) U/L Alkaline Phosphatase 131 H (46-116) U/L Total Protein 5.7 L (6.4-8.2) g/dl Albumin 3.0 L (3.4-5.0) g/dl Globulin 2.7 gm/dL Albumin/Globulin Ratio 1.1 (1-2) Med Orders - Current: Current Medications Alprazolam (Xanax) 0.25 mg PO Q12H PRN PRN Reason: Anxiety Bisacodyl (Dulcolax) 5 mg PO DAILY PRN PRN Reason: Constipation Cholecalciferol (Vitamin D3) 5,000 unit PO DAILY [facility] Cyclobenzaprine HCl (Flexeril) 10 mg PO BID PRN PRN Reason: Spasms Last Admin: 04/12/19 23:03 Dose: 10 mg Docusate Sodium (Colace) 100 mg PO BID [facility] Last Admin: 04/12/19 21:32 Dose: 100 mg Duloxetine HCl (Cymbalta) 60 mg PO DAILY [facility] Famotidine (Pepcid) 20 mg PO Q12H [facility] Last Admin: 04/12/19 21:32 Dose: 20 mg Gabapentin (Neurontin) 100 mg PO BEDTIME [facility] Last Admin: 04/12/19 21:33 Dose: 100 mg Hydrochlorothiazide (Hydrochlorothiazide) 12.5 mg PO DAILY [facility] Cefazolin Sodium/Dextrose 2 gm (/ Premix) 50 mls @ 100 mls/hr IV Q8H [facility] Stop: 04/13/19 07:29 Last Admin: 04/13/19 06:59 Dose: 100 mls/hr Ketorolac Tromethamine (Toradol) 15 mg IVPUSH Q6H PRN PRN Reason: Pain Stop: 04/13/19 11:01 Last Admin: 04/13/19 02:38 Dose: 15 mg Magnesium Hydroxide (Milk Of Magnesia) 30 ml PO BID PRN PRN Reason: Constipation Metoprolol Succinate (Toprol Xl) 50 mg PO DAILY [facility] Morphine Sulfate (Morphine) 2 mg IVPUSH Q2H PRN PRN Reason: Breakthrough Pain Naloxone HCl (Narcan) 0.1 mg IVPUSH Q5M PRN PRN Reason: Oversedation Ondansetron HCl (Zofran) 4 mg IVPUSH Q6H PRN PRN Reason: Nausea/Vomiting Last Admin: 04/12/19 14:33 Dose: 4 mg Oxycodone/Acetaminophen (Percocet 325-5 Mg) 1 - 2 tab PO Q4H PRN PRN Reason: Pain Last Admin: 04/13/19 07:00 Dose: 2 tab Rivaroxaban (Xarelto) 10 mg PO DAILY [facility] Senna (Senna) 8.6 mg PO BID PRN PRN Reason: Constipation Discontinued Medications Acetaminophen (Tylenol) 650 mg PO ONETIME [facility] Stop: 04/12/19 13:00 Acetaminophen (Tylenol) 975 mg PO ONETIME [facility] Stop: 04/12/19 13:00 Last Admin: 04/12/19 07:27 Dose: 975 mg Bupivacaine HCl (Marcaine 0.25%) Confirm Administered Dose 30 ml .ROUTE .STK- MED ONE Stop: 04/12/19 07:20 Last Admin: 04/12/19 09:43 Dose: 30 ml Cefazolin Sodium (Ancef) Confirm Administered Dose 2 gm .ROUTE .STK-MED ONE Stop: 04/12/19 07:15 Cefazolin Sodium (Ancef) Confirm Administered Dose 2 gm .ROUTE .STK-MED ONE Stop: 04/12/19 07:20 Last Admin: 04/12/19 09:38 Dose: 2 gm Morphine Sulfate 8 mg/Epinephrine HCl 0.3 mg/Cefuroxime Sodium 750 mg/Ketorolac Tromethamine 30 mg/Sodium Chloride 27.9 ml 0 mg .XX ONETIME ONE Stop: 04/12/19 07:16 Last Admin: 04/12/19 12:17 Dose: Not Given Ephedrine Sulfate (Ephedrine In Ns) Confirm Administered Dose 25 mg .ROUTE .STK- MED ONE Stop: 04/12/19 09:32 Epinephrine HCl (Adrenalin) Confirm Administered Dose 1 mg .ROUTE .STK-MED ONE Stop: 04/12/19 10:45 Fentanyl (Sublimaze) Confirm Administered Dose 100 mcg .ROUTE .STK-MED ONE Stop: 04/12/19 07:15 Fentanyl (Sublimaze) 50 mcg IVPUSH Q5M PRN PRN Reason: Pain Stop: 04/12/19 18:00 Last Admin: 04/12/19 10:36 Dose: 100 mcg Fentanyl (Sublimaze) Confirm Administered Dose 200 mcg .ROUTE .STK-MED ONE Stop: 04/12/19 10:34 Last Admin: 04/12/19 10:36 Dose: Not Given Hydromorphone HCl (Dilaudid) 0.5 mg IVPUSH Q10M PRN PRN Reason: Pain (severe 7-10) Stop: 04/12/19 18:00 Last Admin: 04/12/19 11:21 Dose: 0.5 mg Lactated Ringer's (Ringers, Lactated) 1,000 mls @ 125 mls/hr IV ASDIRECTED [facility] Stop: 04/12/19 23:00 Last Admin: 04/12/19 11:06 Dose: 125 mls/hr Cefazolin Sodium/Dextrose 2 gm (/ Premix) 50 mls @ 100 mls/hr IV Q8H [facility] Stop: 04/12/19 22:29 Last Admin: 04/12/19 12:19 Dose: Not Given Lidocaine HCl (Xylocaine-Mpf 1%) Confirm Administered Dose 4 mls @ as directed .ROUTE .STK-MED ONE Stop: 04/12/19 07:15 Lidocaine HCl (Xylocaine-Mpf 1%) Confirm Administered Dose 4 mls @ as directed .ROUTE .STK-MED ONE Stop: 04/12/19 10:57 Iodine (Iodine 2% Mild Tincture) Confirm Administered Dose 30 ml .ROUTE .STK- MED ONE Stop: 04/12/19 07:20 Last Admin: 04/12/19 09:32 Dose: 18 ml Ketorolac Tromethamine (Toradol) 15 mg IVPUSH Q6H PRN PRN Reason: Pain Ketorolac Tromethamine (Toradol) 30 mg IVPUSH ONETIME PRN PRN Reason: Pain Last Admin: 04/12/19 10:53 Dose: 30 mg Lidocaine/Sodium Bicarbonate (Buffered Lidocaine 1% In Ns 8.4%) 0.25 ml IDERM ONETIME PRN PRN Reason: Prior to IV Start Stop: 04/12/19 18:00 Last Admin: 04/12/19 07:30 Dose: 0.25 ml Midazolam HCl (Versed 1 Mg/Ml) Confirm Administered Dose 2 mg .ROUTE .STK-MED ONE Stop: 04/12/19 07:15 Ondansetron HCl (Zofran) Confirm Administered Dose 4 mg .ROUTE .STK-MED ONE Stop: 04/12/19 07:14 Oxycodone HCl (Oxycontin) 10 mg PO ONETIME [facility] Stop: 04/12/19 13:00 Last Admin: 04/12/19 07:27 Dose: 10 mg Pregabalin (Lyrica) 50 mg PO ONETIME [facility] Stop: 04/12/19 13:00 Last Admin: 04/12/19 07:27 Dose: 50 mg Propofol (Diprivan 20 Ml) Confirm Administered Dose 200 mg .ROUTE .STK-MED ONE Stop: 04/12/19 07:15 Propofol (Diprivan 20 Ml) Confirm Administered Dose 200 mg .ROUTE .STK-MED ONE Stop: 04/12/19 08:43 Propofol (Diprivan 20 Ml) Confirm Administered Dose 200 mg .ROUTE .STK-MED ONE Stop: 04/12/19 09:01 Propofol (Diprivan 20 Ml) Confirm Administered Dose 200 mg .ROUTE .STK-MED ONE Stop: 04/12/19 09:21 Propofol (Diprivan 20 Ml) Confirm Administered Dose 200 mg .ROUTE .STK-MED ONE Stop: 04/12/19 09:44 Ropivacaine (Naropin 0.5%) Confirm Administered Dose 30 ml .ROUTE .STK-MED ONE Stop: 04/12/19 10:45 Scopolamine (Transderm-Scop) 1.5 mg TOP ONETIME [facility] Stop: 04/12/19 18:00 Last Admin: 04/12/19 07:28 Dose: 1.5 mg Sodium Chloride (Saline Flush) 10 ml FLUSH ASDIRECTED PRN PRN Reason: Keep Vein Open Stop: 04/12/19 18:00 Tranexamic Acid (Cyklokapron) Confirm Administered Dose 1,000 mg .ROUTE .STK- MED ONE Stop: 04/12/19 07:20 Last Admin: 04/12/19 09:50 Dose: 1,000 mg Vancomycin HCl (Vancomycin) Confirm Administered Dose 1 gm .ROUTE .STK-MED ONE Stop: 04/12/19 07:20 Vancomycin HCl (Vancomycin) Confirm Administered Dose 1 gm .ROUTE .STK-MED ONE Stop: 04/12/19 07:57 Last Admin: 04/12/19 09:45 Dose: 1 gm - Exam Wound/Incisions: Dressing Dry and Intact General: Alert, Cooperative, No Acute Distress Lungs: Normal Respiratory Effort Extremities: Other (NVS intact for RLE. Bunny's negative.) - Problem List Review Problem List Initiated/Reviewed/Updated: Yes - My Orders Last 24 Hours: Active Orders 24 hr Category Date Time Status Patient Status [ADT] Routine ADT 04/12/19 06:15 Active Ambulate [RC] PER UNIT ROUTINE Care 04/12/19 06:15 Active Antiembolic Devices [RC] BID Care 04/12/19 06:16 Active Cooling Warming Measures [RC] ASDIRECTED Care 04/12/19 10:27 Inactive May Shower [RC] ASDIRECTED Care 04/12/19 06:15 Active Notify Provider [RC] ASDIRECTED Care 04/12/19 10:27 Active Oxygen Therapy [RC] PRN Care 04/12/19 06:15 Active Pulse Oximetry [RC] ASDIRECTED Care 04/12/19 10:27 Active RT Incentive Spirometry [RC] Q1HWA Care 04/12/19 06:15 Active Up to Chair [RC] ASDIRECTED Care 04/12/19 06:15 Active Vital Signs [RC] Q4HR Care 04/12/19 06:15 Active Consult to Physician [CONS] Routine Cons 04/12/19 06:15 Active OT Evaluation and Treatment [CONS] Routine Cons 04/12/19 06:15 Active PT Evaluation and Treatment [CONS] Routine Cons 04/12/19 06:15 Active Regular Diet [DIET] Diet 04/12/19 Lunch Active ALPRAZolam [Xanax] Med 04/12/19 10:33 Active 0.25 mg PO Q12H PRN Acetaminophen/oxyCODONE [Percocet 325-5 MG] Med 04/12/19 06:15 Active 1 - 2 tab PO Q4H PRN Bisacodyl [Dulcolax] Med 04/12/19 06:15 Active 5 mg PO DAILY PRN Cholecalciferol (Vitamin D3) [Vitamin D3] Med 04/13/19 09:00 Active 5,000 unit PO DAILY Cyclobenzaprine [Flexeril] Med 04/12/19 06:15 Active 10 mg PO BID PRN DULoxetine [Cymbalta] Med 04/13/19 09:00 Active 60 mg PO DAILY Docusate Sodium [Colace] Med 04/12/19 21:00 Active 100 mg PO BID Famotidine [Pepcid] Med 04/12/19 21:00 Active 20 mg PO Q12H Gabapentin [Neurontin] Med 04/12/19 21:00 Active 100 mg PO BEDTIME Ketorolac [Toradol] Med 04/12/19 17:00 Active 15 mg IVPUSH Q6H PRN Magnesium Hydroxide [Milk of Magnesia] Med 04/12/19 06:15 Active 30 ml PO BID PRN Metoprolol Succinate [Toprol XL] Med 04/13/19 09:00 Active 50 mg PO DAILY Morphine Med 04/12/19 06:15 Active 2 mg IVPUSH Q2H PRN Naloxone [Narcan] Med 04/12/19 06:15 Active 0.1 mg IVPUSH Q5M PRN Ondansetron [Zofran] Med 04/12/19 06:15 Active 4 mg IVPUSH Q6H PRN Rivaroxaban [Xarelto] Med 04/13/19 09:00 Pending 10 mg PO DAILY Sennosides [Senna] Med 04/12/19 06:15 Active 8.6 mg PO BID PRN ceFAZolin [Ancef] 2 gm Med 04/12/19 15:00 Active Premix Bag 1 bag IV Q8H hydroCHLOROthiazide Med 04/13/19 09:00 Hold 12.5 mg PO DAILY Antiembolic Hose [OM.PC] Per Unit Routine Oth 04/12/19 06:17 Ordered Ice Therapy [OM.PC] Per Unit Routine Oth 04/12/19 06:16 Ordered Sequential Compression Device [OM.PC] Per Unit Routine Oth 04/12/19 06:15 Ordered Resuscitation Status Routine Resus Stat 04/12/19 06:15 Ordered Medication Orders Alprazolam (Xanax) 0.25 mg PO Q12H PRN PRN Reason: Anxiety Bisacodyl (Dulcolax) 5 mg PO DAILY PRN PRN Reason: Constipation Cholecalciferol (Vitamin D3) 5,000 unit PO DAILY [facility] Cyclobenzaprine HCl (Flexeril) 10 mg PO BID PRN PRN Reason: Spasms Last Admin: 04/12/19 23:03 Dose: 10 mg Docusate Sodium (Colace) 100 mg PO BID [facility] Last Admin: 04/12/19 21:32 Dose: 100 mg Duloxetine HCl (Cymbalta) 60 mg PO DAILY [facility] Famotidine (Pepcid) 20 mg PO Q12H [facility] Last Admin: 04/12/19 21:32 Dose: 20 mg Gabapentin (Neurontin) 100 mg PO BEDTIME [facility] Last Admin: 04/12/19 21:33 Dose: 100 mg Hydrochlorothiazide (Hydrochlorothiazide) 12.5 mg PO DAILY [facility] Cefazolin Sodium/Dextrose 2 gm (/ Premix) 50 mls @ 100 mls/hr IV Q8H [facility] Stop: 04/13/19 07:29 Last Admin: 04/13/19 06:59 Dose: 100 mls/hr Infusion: 04/12/19 23:33 Dose: 100 mls/hr Admin: 04/12/19 23:03 Dose: 100 mls/hr Infusion: 04/12/19 14:55 Dose: 100 mls/hr Admin: 04/12/19 14:25 Dose: 100 mls/hr Ketorolac Tromethamine (Toradol) 15 mg IVPUSH Q6H PRN PRN Reason: Pain Stop: 04/13/19 11:01 Last Admin: 04/13/19 02:38 Dose: 15 mg Admin: 04/12/19 19:00 Dose: 15 mg Magnesium Hydroxide (Milk Of Magnesia) 30 ml PO BID PRN PRN Reason: Constipation Metoprolol Succinate (Toprol Xl) 50 mg PO DAILY [facility] Morphine Sulfate (Morphine) 2 mg IVPUSH Q2H PRN PRN Reason: Breakthrough Pain Naloxone HCl (Narcan) 0.1 mg IVPUSH Q5M PRN PRN Reason: Oversedation Ondansetron HCl (Zofran) 4 mg IVPUSH Q6H PRN PRN Reason: Nausea/Vomiting Last Admin: 04/12/19 14:33 Dose: 4 mg Oxycodone/Acetaminophen (Percocet 325-5 Mg) 1 - 2 tab PO Q4H PRN PRN Reason: Pain Last Admin: 04/13/19 07:00 Dose: 2 tab Admin: 04/13/19 02:39 Dose: 2 tab Admin: 04/12/19 21:35 Dose: 2 tab Admin: 04/12/19 14:23 Dose: 2 tab Rivaroxaban (Xarelto) 10 mg PO DAILY [facility] Senna (Senna) 8.6 mg PO BID PRN PRN Reason: Constipation - Assessment Assessment (Free Text/Narrative):: POD#1 - right TKA - Plan Plan (Free Text/Narrative):: 1. Hgb 11.8 today. 2. Xarelto for VTE prophylaxis - personal hx UE clot s/p c-spine surgery and family hx VTE. 3. Discharge to home today. 4. Outpatient therapy. The pt's case was discussed with Dr. Hanley today.
--- NOTE | 2019-04-13 07:59 | PCM48HPAN ---
Post Anesthesia Note - EVALUATION WITHIN 48HRS OF ANESTHETIC Vital Signs in Normal Range: Yes Patient Participated in Evaluation: Yes Respiratory Function Stable: Yes Airway Patent: Yes Cardiovascular Function Stable: Yes Hydration Status Stable: Yes Pain Control Satisfactory: Yes Nausea and Vomiting Control Satisfactory: Yes Mental Status Recovered: Yes - COMMENTS/OBSERVATIONS Free Text/Narrative:: Patient sitting up in chair with c/o noted at this time.
[2019-04-13] MEDS: Famotidine 20 MG Tab PO SCH (08:14)
[2019-04-13] MEDS: Docusate Sodium 100 MG Cap PO SCH (08:14)
[2019-04-13] MEDS ORDERED: Hydrochlorothiazide 12.5 MG Cap PO SCH (09:00)
[2019-04-13] MEDS ORDERED: Cholecalciferol (Vitamin D3) 5,000 UNIT Tab PO SCH (09:00)
[2019-04-13] MEDS ORDERED: DULoxetine 30 MG Cap PO SCH (09:00)
[2019-04-13] MEDS ORDERED: Metoprolol Succinate 50 MG Tab.ER PO SCH (09:00)
[2019-04-13] MEDS ORDERED: Rivaroxaban 10 MG Tab PO SCH (09:00)
[2019-04-13] MEDS: Cyclobenzaprine 10 MG Tab PO PRN (11:10)
[2019-04-13 11:43] VITALS: BP 110/72
--- NOTE | 2019-04-13 15:02 | PCM.DCSUM1 ---
Discharge Summary - Hospital Course Brief History: Beni is a 53 yo female who underwent right TKA with Dr. Hanley on 04-12-2019. The procedure was completed under spinal anesthesia with MAC. The pt tolerated the procedure well and was admitted to the Medical-Surgical Unit. Medical management was provided by the Hospitalist service. The pt's Hospital course was remarkable for elevated LFTs and the pt was instructed to follow-up with her PCP. The pt's Hgb on POD#1 was 11.8. On POD#1, Xarelto 10mg PO daily was initiated for VTE prophylaxis. SCDs and TEDs were also ordered. A Mepilex dressing was placed at the incision site at the time of surgery and remained clean and dry. The pt participated in P.T. and O.T. and progressed well. The pt was allowed to WBAT. On POD#1, the pt was deemed appropriate to discharge to home with her . Diagnosis: Stroke: No - Discharge Data Discharge Date: 04/13/19 Discharge Disposition: Home, Self-Care 01 Condition: Good - Patient Summary/Data Operative Procedure(s) Performed: right total knee arthroplasty Consults: Consultations 04/12/19 06:15 Consult to Physician [CONS] Routine OT Evaluation and Treatment [CONS] Routine PT Evaluation and Treatment [CONS] Routine - Patient Instructions Diet: Usual Diet as Tolerated Activity: Apply Ice, As Tolerated, Elevate Extremity, Full Weight Bearing Driving: Do Not Drive Showering/Bathing: May Shower Wound/Incision Care: Keep Operative Site/Wound Site Clean and Dry, Do NOT Change Dressing Notify Provider of: Fever, Increased Pain, Swelling and Redness, Drainage, Nausea and/or Vomiting Other/Special Instructions: Please get up and moving around EVERY HOUR while awake. This helps to prevent blood clots. Please use your walker and have help with mobility as needed. Take a short walk in your home every hour while awake. Please take the Xarelto blood thinner medication daily as directed. This is being used to help prevent blood clots. At home, please complete the exercises that you learned during the Hospital stay. Schedule for physical therapy. Use the pain medication as needed. The medication may cause drowsiness and constipation. Contact your primary care provider for instructions if you are constipated. You may use a stool softener like docusate sodium or Colace 100mg twice daily and/or a laxative like Miralax daily for constipation. Increase your water and fiber intake while you are using the pain medication. Discontinue use of the pain medication as soon as able. Please do not use other medications that may cause drowsiness (other pain medications, anxiety pills, cold medications, sleeping pills, etc) while using the prescription pain medication. Do not use alcohol while using the pain medication. You may use acetaminophen or Tylenol for pain management, however, please ensure you are not using over 4000 mg or 4 grams of acetaminophen per day from all sources. Your pain medication has 325mg of acetaminophen per tablet. At this time, please do not use ibuprofen (Motrin, Advil) or naproxen (Aleve) for pain management as you are using the aspirin. When the aspirin course is completed in 4 to 6 weeks, you could use ibuprofen or naproxen for pain management (if this is allowed by your primary care provider). Wear the KADEN hose during the day and you may remove these at night. Elevate the limb to decrease swelling. Place ice to the area often. Place a towel between your skin and the blue pad. Use the incentive spirometer often. Take deep breaths throughout the day. Please keep the dressing in place until follow-up. Notify the Clinic if the dressing becomes saturated. Increase your protein intake while you are healing. If you have diabetes, please closely monitor your blood sugars and notify your primary care provider with abnormal values. Elevated blood sugars increases the risk of infection. Call the Clinic with questions or concerns - [phone]. Follow-up for re-check of labs on 04/14/19 at [facility]. Your primary care provider, Yandy Michael PA-C, will contact you if there are any changes needed with our plan after dischare. - Discharge Plan *PRESCRIPTION DRUG MONITORING PROGRAM REVIEWED*: No *COPY OF PRESCRIPTION DRUG MONITORING REPORT IN PATIENT THU: No Prescriptions/Med Rec: Cyclobenzaprine [Flexeril] 10 mg PO BID PRN #30 tablet PRN Reason: Spasms oxyCODONE 5 - 10 mg PO Q4H PRN #60 tab PRN Reason: Pain Rivaroxaban [Xarelto] 10 mg PO DAILY #40 tablet Home Medications: Home Meds DULoxetine [Cymbalta] 60 mg PO DAILY 03/16/14 [History] Metoprolol Succinate [Toprol XL] 50 mg PO DAILY 03/16/14 [History] Cholecalciferol (Vitamin D3) [Vitamin D] 5,000 unit PO DAILY 03/27/16 [History] hydroCHLOROthiazide [Hydrochlorothiazide] 12.5 mg PO DAILY 03/27/16 [History] ALPRAZolam [Xanax] 0.25 mg PO Q12H PRN 04/11/19 [History] Gabapentin [Neurontin] 100 mg PO BEDTIME 04/11/19 [History] Bisacodyl [Dulcolax] 5 mg PO DAILY PRN tablet 04/12/19 [Rx] Cyclobenzaprine [Flexeril] 10 mg PO BID PRN #30 tablet 04/12/19 [Rx] Docusate Sodium [Colace] 100 mg PO BID cap 04/12/19 [Rx] Famotidine [Pepcid] 20 mg PO Q12H tablet 04/12/19 [Rx] Magnesium Hydroxide [Milk of Magnesia] 30 ml PO BID PRN cup 04/12/19 [Rx] Rivaroxaban [Xarelto] 10 mg PO DAILY #40 tablet 04/12/19 [Rx] Sennosides [Senna] 8.6 mg PO BID PRN tablet 04/12/19 [Rx] oxyCODONE 5 - 10 mg PO Q4H PRN #60 tab 04/13/19 [Rx] Referrals: Ely Dimas PA-C [Physician Edger Hand] - (1. Follow-up with Ely Dimas PA-C on Friday, April 19, 2019 at 9:45am. 2. Follow-up with Ely Dimas PA-C on Friday, April 26, 2019 at 3:00pm.) - Discharge Summary/Plan Comment DC Time >30 min.: No - Patient Data Vitals - Most Recent: Last Vital Signs Temp 98.4 F 04/13/19 08:15 Pulse 62 04/13/19 08:15 Resp 18 04/13/19 08:15 BP 110/72 04/13/19 10:00 Pulse Ox 93 L 04/13/19 08:15 Weight - Most Recent: 211 lb 1 oz I&O - Last 24 hours: Intake & Output 04/12/19 04/13/19 04/13/19 22:59 06:59 14:59 Intake Total 450 550 570 Output Total 250 1650 950 Balance 200 -1100 -380 Lab Results - Last 24 hrs: Laboratory Results - last 24 hr 04/13/19 04/13/19 Range/Units 05:43 05:43 WBC 7.30 (3.98-10.04) K/mm3 RBC 3.87 L (3.98-5.22) M/mm3 Hgb 11.8 D (11.2-15.7) gm/L Hct 34.8 (34.1-44.9) % MCV 89.9 (79.4-94.8) fl MCH 30.5 (25.6-32.2) pg MCHC 33.9 (32.2-35.5) g/dl RDW Std Deviation 42.4 (36.4-46.3) fL Plt Count 256 (182-369) K/mm3 MPV 10.5 (9.4-12.3) fl Sodium 137 (136-145) mEq/L Potassium 4.3 (3.5-5.1) mEq/L Chloride 103 (98-107) mEq/L Carbon Dioxide 28 (21-32) mEq/L Anion Gap 10.3 (5-15) BUN 18 (7-18) mg/dL Creatinine 1.0 (0.55-1.02) mg/dL Est Cr Clr Drug Dosing 57.47 mL/min Estimated GFR (MDRD) 58 (>60) mL/min BUN/Creatinine Ratio 18.0 (14-18) Glucose 123 H (74-106) mg/dL Calcium 8.8 (8.5-10.1) mg/dL Total Bilirubin 0.7 (0.2-1.0) mg/dL AST 482 H (15-37) U/L ALT 857 H (14-59) U/L Alkaline Phosphatase 131 H (46-116) U/L Total Protein 5.7 L (6.4-8.2) g/dl Albumin 3.0 L (3.4-5.0) g/dl Globulin 2.7 gm/dL Albumin/Globulin Ratio 1.1 (1-2) Med Orders - Current: Current Medications Discontinued Medications Acetaminophen (Tylenol) 650 mg PO ONETIME [facility] Stop: 04/12/19 13:00 Acetaminophen (Tylenol) 975 mg PO ONETIME CAREY Stop: 04/12/19 13:00 Last Admin: 04/12/19 07:27 Dose: 975 mg Alprazolam (Xanax) 0.25 mg PO Q12H PRN PRN Reason: Anxiety Bisacodyl (Dulcolax) 5 mg PO DAILY PRN PRN Reason: Constipation Bupivacaine HCl (Marcaine 0.25%) Confirm Administered Dose 30 ml .ROUTE .STK- MED ONE Stop: 04/12/19 07:20 Last Admin: 04/12/19 09:43 Dose: 30 ml Cefazolin Sodium (Ancef) Confirm Administered Dose 2 gm .ROUTE .STK-MED ONE Stop: 04/12/19 07:15 Cefazolin Sodium (Ancef) Confirm Administered Dose 2 gm .ROUTE .STK-MED ONE Stop: 04/12/19 07:20 Last Admin: 04/12/19 09:38 Dose: 2 gm Cholecalciferol (Vitamin D3) 5,000 unit PO DAILY [facility] Last Admin: 04/13/19 08:18 Dose: 5,000 unit Morphine Sulfate 8 mg/Epinephrine HCl 0.3 mg/Cefuroxime Sodium 750 mg/Ketorolac Tromethamine 30 mg/Sodium Chloride 27.9 ml 0 mg .XX ONETIME ONE Stop: 04/12/19 07:16 Last Admin: 04/12/19 12:17 Dose: Not Given Cyclobenzaprine HCl (Flexeril) 10 mg PO BID PRN PRN Reason: Spasms Last Admin: 04/13/19 11:10 Dose: 10 mg Docusate Sodium (Colace) 100 mg PO BID [facility] Last Admin: 04/13/19 08:14 Dose: 100 mg Duloxetine HCl (Cymbalta) 60 mg PO DAILY [facility] Last Admin: 04/13/19 08:14 Dose: 60 mg Ephedrine Sulfate (Ephedrine In Ns) Confirm Administered Dose 25 mg .ROUTE .STK- MED ONE Stop: 04/12/19 09:32 Epinephrine HCl (Adrenalin) Confirm Administered Dose 1 mg .ROUTE .STK-MED ONE Stop: 04/12/19 10:45 Famotidine (Pepcid) 20 mg PO Q12H [facility] Last Admin: 04/13/19 08:14 Dose: 20 mg Fentanyl (Sublimaze) Confirm Administered Dose 100 mcg .ROUTE .STK-MED ONE Stop: 04/12/19 07:15 Fentanyl (Sublimaze) 50 mcg IVPUSH Q5M PRN PRN Reason: Pain Stop: 04/12/19 18:00 Last Admin: 04/12/19 10:36 Dose: 100 mcg Fentanyl (Sublimaze) Confirm Administered Dose 200 mcg .ROUTE .STK-MED ONE Stop: 04/12/19 10:34 Last Admin: 04/12/19 10:36 Dose: Not Given Gabapentin (Neurontin) 100 mg PO BEDTIME [facility] Last Admin: 04/12/19 21:33 Dose: 100 mg Hydrochlorothiazide (Hydrochlorothiazide) 12.5 mg PO DAILY [facility] Hydromorphone HCl (Dilaudid) 0.5 mg IVPUSH Q10M PRN PRN Reason: Pain (severe 7-10) Stop: 04/12/19 18:00 Last Admin: 04/12/19 11:21 Dose: 0.5 mg Lactated Ringer's (Ringers, Lactated) 1,000 mls @ 125 mls/hr IV ASDIRECTED [facility] Stop: 04/12/19 23:00 Last Admin: 04/12/19 11:06 Dose: 125 mls/hr Cefazolin Sodium/Dextrose 2 gm (/ Premix) 50 mls @ 100 mls/hr IV Q8H [facility] Stop: 04/12/19 22:29 Last Admin: 04/12/19 12:19 Dose: Not Given Lidocaine HCl (Xylocaine-Mpf 1%) Confirm Administered Dose 4 mls @ as directed .ROUTE .STK-MED ONE Stop: 04/12/19 07:15 Cefazolin Sodium/Dextrose 2 gm (/ Premix) 50 mls @ 100 mls/hr IV Q8H [facility] Stop: 04/13/19 07:29 Last Admin: 04/13/19 06:59 Dose: 100 mls/hr Lidocaine HCl (Xylocaine-Mpf 1%) Confirm Administered Dose 4 mls @ as directed .ROUTE .STK-MED ONE Stop: 04/12/19 10:57 Iodine (Iodine 2% Mild Tincture) Confirm Administered Dose 30 ml .ROUTE .STK- MED ONE Stop: 04/12/19 07:20 Last Admin: 04/12/19 09:32 Dose: 18 ml Ketorolac Tromethamine (Toradol) 15 mg IVPUSH Q6H PRN PRN Reason: Pain Ketorolac Tromethamine (Toradol) 30 mg IVPUSH ONETIME PRN PRN Reason: Pain Last Admin: 04/12/19 10:53 Dose: 30 mg Ketorolac Tromethamine (Toradol) 15 mg IVPUSH Q6H PRN PRN Reason: Pain Stop: 04/13/19 11:01 Last Admin: 04/13/19 02:38 Dose: 15 mg Lidocaine/Sodium Bicarbonate (Buffered Lidocaine 1% In Ns 8.4%) 0.25 ml IDERM ONETIME PRN PRN Reason: Prior to IV Start Stop: 04/12/19 18:00 Last Admin: 04/12/19 07:30 Dose: 0.25 ml Magnesium Hydroxide (Milk Of Magnesia) 30 ml PO BID PRN PRN Reason: Constipation Metoprolol Succinate (Toprol Xl) 50 mg PO DAILY [facility] Last Admin: 04/13/19 08:15 Dose: 50 mg Midazolam HCl (Versed 1 Mg/Ml) Confirm Administered Dose 2 mg .ROUTE .STK-MED ONE Stop: 04/12/19 07:15 Morphine Sulfate (Morphine) 2 mg IVPUSH Q2H PRN PRN Reason: Breakthrough Pain Naloxone HCl (Narcan) 0.1 mg IVPUSH Q5M PRN PRN Reason: Oversedation Ondansetron HCl (Zofran) 4 mg IVPUSH Q6H PRN PRN Reason: Nausea/Vomiting Last Admin: 04/12/19 14:33 Dose: 4 mg Ondansetron HCl (Zofran) Confirm Administered Dose 4 mg .ROUTE .STK-MED ONE Stop: 04/12/19 07:14 Oxycodone HCl (Oxycontin) 10 mg PO ONETIME CAREY Stop: 04/12/19 13:00 Last Admin: 04/12/19 07:27 Dose: 10 mg Oxycodone/Acetaminophen (Percocet 325-5 Mg) 1 - 2 tab PO Q4H PRN PRN Reason: Pain Last Admin: 04/13/19 11:09 Dose: 2 tab Pregabalin (Lyrica) 50 mg PO ONETIME [facility]ARE[facility] Stop: 04/12/19 13:00 Last Admin: 04/12/19 07:27 Dose: 50 mg Propofol (Diprivan 20 Ml) Confirm Administered Dose 200 mg .ROUTE .STK-MED ONE Stop: 04/12/19 07:15 Propofol (Diprivan 20 Ml) Confirm Administered Dose 200 mg .ROUTE .STK-MED ONE Stop: 04/12/19 08:43 Propofol (Diprivan 20 Ml) Confirm Administered Dose 200 mg .ROUTE .STK-MED ONE Stop: 04/12/19 09:01 Propofol (Diprivan 20 Ml) Confirm Administered Dose 200 mg .ROUTE .STK-MED ONE Stop: 04/12/19 09:21 Propofol (Diprivan 20 Ml) Confirm Administered Dose 200 mg .ROUTE .STK-MED ONE Stop: 04/12/19 09:44 Rivaroxaban (Xarelto) 10 mg PO DAILY [facility] Last Admin: 04/13/19 08:14 Dose: 10 mg Ropivacaine (Naropin 0.5%) Confirm Administered Dose 30 ml .ROUTE .STK-MED ONE Stop: 04/12/19 10:45 Scopolamine (Transderm-Scop) 1.5 mg TOP ONETIME [facility] Stop: 04/12/19 18:00 Last Admin: 04/12/19 07:28 Dose: 1.5 mg Senna (Senna) 8.6 mg PO BID PRN PRN Reason: Constipation Sodium Chloride (Saline Flush) 10 ml FLUSH ASDIRECTED PRN PRN Reason: Keep Vein Open Stop: 04/12/19 18:00 Tranexamic Acid (Cyklokapron) Confirm Administered Dose 1,000 mg .ROUTE .STK- MED ONE Stop: 04/12/19 07:20 Last Admin: 04/12/19 09:50 Dose: 1,000 mg Vancomycin HCl (Vancomycin) Confirm Administered Dose 1 gm .ROUTE .STK-MED ONE Stop: 04/12/19 07:20 Vancomycin HCl (Vancomycin) Confirm Administered Dose 1 gm .ROUTE .STK-MED ONE Stop: 04/12/19 07:57 Last Admin: 04/12/19 09:45 Dose: 1 gm
== END 2019-04-13 11:30 | disposition home or self-care (01) | DRG 302 ==
LOC: JD.SDS 07:02 → JD.MS 09:29
PROVIDERS: ADMIT Orthopaedic Surgery; ATTEND Orthopaedic Surgery
PROC: 0SRC0JA Replacement of Right Knee Joint with Synthetic Substitute, Uncemented, Open Approach (ICD-10-PCS; principal; 2019-04-12)
PROC: 3E0T3BZ Introduction of Anesthetic Agent into Peripheral Nerves and Plexi, Percutaneous Approach (ICD-10-PCS; 2019-04-12)
DX: M17.11 Unilateral primary osteoarthritis, right knee (principal); I10 Essential (primary) hypertension; M79.7 Fibromyalgia; F41.9 Anxiety disorder, unspecified; F32.9 Major depressive disorder, single episode, unspecified; E55.9 Vitamin D deficiency, unspecified; H54.7 Unspecified visual loss; K52.832 Lymphocytic colitis; M24.9 Joint derangement, unspecified; R74.0 Nonspecific elevation of levels of transaminase and lactic acid dehydrogenase [LDH]; G89.18 Other acute postprocedural pain; M25.761 Osteophyte, right knee; Z15.89 Genetic susceptibility to other disease; Z87.440 Personal history of urinary (tract) infections; Z90.710 Acquired absence of both cervix and uterus; Z79.899 Other long term (current) drug therapy; Z88.2 Allergy status to sulfonamides; Z98.1 Arthrodesis status; Z90.49 Acquired absence of other specified parts of digestive tract
CPT/HCPCS: 01402; 36415; 64450; 73560-26-RT; 73560-RT; 80053; 85027; 87641; 97110-GP; 97116-GP; 97162-GP; 97165-GO; 97530-GP; 97535-GO; A9270-GY; C1776; J0171; J0690; J0697; J1170; J1885; J2001; J2250; J2270; J2405; J2704; J2795; J3010; J3370; J3490; J7050; J7120

== ENCOUNTER 2019-04-13 23:22 | Emergency (ER) | payer BC ==
[2019-04-13 23:35] VITALS: BP 115/78
[2019-04-14] MEDS ORDERED: HYDROmorphone 1 MG/ML Syringe IM ONE (00:10)
--- NOTE | 2019-04-14 00:17 | EDM.PDOC ---
ED HPI GENERAL MEDICAL PROBLEM - General Chief Complaint: Lower Extremity Injury/Pain Stated Complaint: KNEE PAIN POST OP Time Seen by Provider: 04/13/19 23:57 Source of Information: Reports: Patient, Family (), RN Notes Reviewed History Limitations: Reports: No Limitations - History of Present Illness INITIAL COMMENTS - FREE TEXT/NARRATIVE: The patient states that she underwent a right total knee arthroplasty yesterday , 04/12/2019. She was discharged home today with a prescription for oxycodone 5 mg, 1-2 tablets up to every 4 hours, as needed for pain. The patient now presents to the ED stating that the oxycodone is inadequate in controlling her pain. She has been using the ice machine, as directed. No new injury to the knee. The patient's PCP is KELBY Chawla. Her Orthopedic Surgeon is Dr. Theo Hanley. Right Knee Pain Score (Numeric/FACES): 10 - Related Data Allergies Allergy/AdvReac Type Severity Reaction Status Date / Time Sulfa (Sulfonamide Allergy Itching Verified 04/13/19 23:33 Antibiotics) Home Meds: Home Meds DULoxetine [Cymbalta] 60 mg PO DAILY 03/16/14 [History] Metoprolol Succinate [Toprol XL] 50 mg PO DAILY 03/16/14 [History] Cholecalciferol (Vitamin D3) [Vitamin D] 5,000 unit PO DAILY 03/27/16 [History] hydroCHLOROthiazide [Hydrochlorothiazide] 12.5 mg PO DAILY 03/27/16 [History] ALPRAZolam [Xanax] 0.25 mg PO Q12H PRN 04/11/19 [History] Gabapentin [Neurontin] 100 mg PO BEDTIME 04/11/19 [History] Bisacodyl [Dulcolax] 5 mg PO DAILY PRN tablet 04/12/19 [Rx] Cyclobenzaprine [Flexeril] 10 mg PO BID PRN #30 tablet 04/12/19 [Rx] Docusate Sodium [Colace] 100 mg PO BID cap 04/12/19 [Rx] Famotidine [Pepcid] 20 mg PO Q12H tablet 04/12/19 [Rx] Magnesium Hydroxide [Milk of Magnesia] 30 ml PO BID PRN cup 04/12/19 [Rx] Rivaroxaban [Xarelto] 10 mg PO DAILY #40 tablet 04/12/19 [Rx] Sennosides [Senna] 8.6 mg PO BID PRN tablet 04/12/19 [Rx] oxyCODONE 5 - 10 mg PO Q4H PRN #60 tab 04/13/19 [Rx] Past Medical History HEENT History: Reports: Impaired Vision Other HEENT History: wears glasses Cardiovascular History: Reports: Arrhythmia (SVT, s/p ablation), Hypertension Gastrointestinal History: Reports: Diverticulosis, Other (See Below) ( Lymphocytic colitis) 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: Musculoskeletal History: Reports: Osteoarthritis Psychiatric History: Reports: Anxiety, Depression, Other (See Below) ( Fibromyalgia) Endocrine/Metabolic History: Reports: Vitamin D Deficiency - Past Surgical History HEENT Surgical History: Reports: Oral Surgery (wisdom teeth extraction) Cardiovascular Surgical History: Reports: Cardiac Ablation (for SVT, 2008) GI Surgical History: Reports: Appendectomy, Cholecystectomy (2014), Hernia, Inguinal (right) Female Surgical History: Reports: Hysterectomy (partial) Neurological Surgical History: Reports: C-Spine (C4-C5 ACDF, 2004) Musculoskeletal Surgical History: Reports: Knee Replacement (right, 04/12/2019) Social & Family History - Family History Family Medical History: Noncontributory - Tobacco Use Smoking Status *Q: Never Smoker - Caffeine Use Caffeine Use: Reports: Coffee Other Caffeine Use: rarely - Alcohol Use Alcohol Use History: Yes Alcohol Use Frequency: Socially - Recreational Drug Use Recreational Drug Use: No - Living Situation & Occupation Living situation: Reports: , with Spouse 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 ED EXAM, GENERAL - Physical Exam Exam: See Below Exam Limited By: No Limitations General Appearance: Alert, WD/WN, No Apparent Distress Extremities: Other (There is a large longitudinal bandage over the anterior knee , which was not removed. The right knee overall is swollen, when compared to the left, but there is no ecchymosis. Only slight erythema adjacent to the bandage. Neurovascular status of the right lower extremity is intact.) Course - Vital Signs Last Recorded V/S: Last Vital Signs Temp 36.9 C 04/13/19 23:33 Pulse 100 04/13/19 23:33 Resp 14 04/13/19 23:33 BP 115/78 04/13/19 23:33 Pulse Ox 90 L 04/13/19 23:33 - Orders/Labs/Meds Meds: Medications Discontinued Medications Generic Name Dose Route Start Last Admin Trade Name Nicole PRN Reason Stop Dose Admin Hydromorphone HCl 1 mg 04/14/19 00:10 04/14/19 00:15 Dilaudid IM 04/14/19 00:11 1 mg ONETIME ONE Administration - Re-Assessments/Exams Free Text/Narrative Re-Assessment/Exam: 04/14/19 00:[address] Hanley at 00:07. The patient had called him earlier mitch. I confirmed that the patient is on Flexeril. He suggested that the patient can increase her oxycodone up to 3 tablets (15 mg) every 4 hours as needed. She is to call his office in the morning, and they will go over her medications. For mitch's purposes, I will have the nurse give the patient a single injection of Dilaudid IM. Departure - Departure Time of Disposition: 00:14 Disposition: Home, Self-Care 01 Condition: Good Clinical Impression: Postoperative pain of right knee - Discharge Information *PRESCRIPTION DRUG MONITORING PROGRAM REVIEWED*: Not Applicable *COPY OF PRESCRIPTION DRUG MONITORING REPORT IN PATIENT THU: Not Applicable Instructions: Knee Pain, Adult Referrals: Yandy Michael PA-C [Primary Care Provider] - Theo Hanley MD [Physician] - Forms: ED Department Discharge Additional Instructions: You were seen in the emergency room for right knee pain, following knee replacement yesterday. Your case was discussed with Dr. Hanley. You were given an injection of Dilaudid in the ER. You may increase your oxycodone up to 3 tablets (15 mg) every 4 hours, as needed for pain. You are to contact his office in the morning to go over your medications. Continue to use the ice machine as much as possible. If any other problems, please do not hesitate to return to the ER.
== END 2019-04-14 00:26 | disposition home or self-care (01) ==
LOC: JD.ED 23:22
DX: G89.18 Other acute postprocedural pain (principal); M25.561 Pain in right knee; I10 Essential (primary) hypertension; M19.90 Unspecified osteoarthritis, unspecified site; F41.9 Anxiety disorder, unspecified; F32.9 Major depressive disorder, single episode, unspecified; Z90.49 Acquired absence of other specified parts of digestive tract; Z90.710 Acquired absence of both cervix and uterus; Z96.651 Presence of right artificial knee joint; Z88.2 Allergy status to sulfonamides
CPT/HCPCS: 96372; 99283; J1170

== ENCOUNTER 2020-01-07 16:02 | Observation (INO) | payer BC ==
--- NOTE | 2020-01-07 17:02 | EDM.PDOC ---
ED HPI GENERAL MEDICAL PROBLEM - General Chief Complaint: Lower Extremity Injury/Pain Stated Complaint: POSSIBLE BLOOD CLOT IN LOWER LT LEG Time Seen by Provider: 01/07/20 16:15 Source of Information: Reports: Patient, RN Notes Reviewed History Limitations: Reports: No Limitations - History of Present Illness INITIAL COMMENTS - FREE TEXT/NARRATIVE: Patient is a 54-year-old female who presents to the ED for the evaluation of some left calf pain. The patient states that she has been sick with a gastroenteritis type illness, since but she is turning the corner on this. She was given some IV fluids at the walk-in clinic and seems to be getting much better she can tolerate oral fluids at this time. They states she was quite dehydrated hence the need for the IV fluids. Patient states that she has not vomited in a few days. She also notes a history of SVT with an ablation , but over the last few weeks as well feels as if her heart has been kind of "fluttery". Patient does note increased stress in her life as well. She notes that her brother has history of blood clots so much so that he cannot do overseas travel, his mother has had a blood clot as well, and she had a blood clot in her arm after a cervical disc surgery. Patient states she is not on any blood thinners. Left Lower Leg Pain Score (Numeric/FACES): 4 - Related Data Allergies Allergy/AdvReac Type Severity Reaction Status Date / Time Sulfa (Sulfonamide Allergy Itching Verified 01/07/20 16:16 Antibiotics) Home Meds: Home Meds DULoxetine [Cymbalta] 60 mg PO DAILY 03/16/14 [History] Metoprolol Succinate [Toprol XL] 50 mg PO DAILY 03/16/14 [History] Cholecalciferol (Vitamin D3) [Vitamin D] 5,000 unit PO DAILY 03/27/16 [History] hydroCHLOROthiazide [Hydrochlorothiazide] 12.5 mg PO DAILY 03/27/16 [History] ALPRAZolam [Xanax] 0.25 mg PO Q12H PRN 04/11/19 [History] Gabapentin [Neurontin] 100 mg PO BEDTIME 04/11/19 [History] Past Medical History HEENT History: Reports: Impaired Vision Other HEENT History: wears glasses Cardiovascular History: Reports: Arrhythmia, Hypertension Other Cardiovascular History: SVT with successful ablation in 2008 Gastrointestinal History: Reports: Diverticulosis, Other (See Below) Other Gastrointestinal History: lyphocytic colitis, diverticula Genitourinary History: Reports: Pyelonephritis, UTI, Recurrent [employer] History: Reports: Musculoskeletal History: Reports: Osteoarthritis Other Musculoskeletal History: polyarthralgia, hypermobile joints, trochanertic bursitis of bilateral hips, pes anserinus bilateral knees, IT band syndrome Psychiatric History: Reports: Anxiety, Depression, Other (See Below) Other Psychiatric History: fatigue Endocrine/Metabolic History: Reports: Vitamin D Deficiency Other Endocrine/Metabolic History: pituitary microadenoma with HCC Hematologic History: Reports: Other (See Below) Other Hematologic History: HLA B27 POSITIVE - Past Surgical History HEENT Surgical History: Reports: Oral Surgery Cardiovascular Surgical History: Reports: Cardiac Ablation (2008 for SVT) GI Surgical History: Reports: Appendectomy, Cholecystectomy, Hernia, Inguinal Female Surgical History: Reports: Hysterectomy Neurological Surgical History: Reports: C-Spine Musculoskeletal Surgical History: Reports: Knee Replacement, Other (See Below) Other Musculoskeletal Surgeries/Procedures:: reports cervical surgery Social & Family History - Family History Family Medical History: Noncontributory - Tobacco Use Smoking Status *Q: Never Smoker - Caffeine Use Caffeine Use: Reports: Coffee Other Caffeine Use: rarely - Living Situation & Occupation Living situation: Reports: , with Spouse 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, 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[employer]) Review of Systems - Review of Systems Review Of Systems: See Below Constitutional: Denies: Chills, Fever Respiratory: Denies: Shortness of Breath, Cough Cardiovascular: Denies: Chest Pain Musculoskeletal: Reports: Leg Pain (Left calf pain) Skin: Denies: Bruising Neurological: Denies: Numbness, Tingling ED EXAM, GENERAL - Physical Exam Exam: See Below Exam Limited By: No Limitations General Appearance: Alert, WD/WN, No Apparent Distress Eye Exam: Bilateral Eye: EOMI, Normal Inspection, PERRL Nose: Normal Inspection Throat/Mouth: Normal Inspection, Normal Lips, Normal Teeth, Normal Gums, Normal Voice, No Airway Compromise Head: Atraumatic, Normocephalic Neck: Normal Inspection Respiratory/Chest: No Respiratory Distress, Lungs Clear, Normal Breath Sounds, No Accessory Muscle Use, Chest Non-Tender Cardiovascular: Normal Peripheral Pulses, Regular Rate, Rhythm, No Murmur Peripheral Pulses: 3+: Radial (L), Radial (R), Dorsalis Pedis (L), Dorsalis Pedis (R) Extremities: Normal Inspection, Normal Range of Motion, Normal Capillary Refill , Bunny's Sign (positive on L calf), Leg Pain (Left calf pain with passive flexion/extension of leg) Neurological: Alert, Oriented, Normal Cognition, No Motor/Sensory Deficits Psychiatric: Normal Affect, Normal Mood Skin Exam: Warm, Dry, Intact, Normal Color, No Rash EKG INTERPRETATION EKG Date: 01/07/20 Time: 16:58 Rhythm: Other (Sinus tachycardia) Rate (Beats/Min): 100 [place]: Normal P-Wave: Present QRS: Normal ST-T: Normal QT: Normal Comparison: NA - No Prior EKG EKG Interpretation Comments: Reviewed with Dr. Dinh, there are Q waves in lead III, V3 and V4, and T wave inversions in multiple leads. Course - Vital Signs Last Recorded V/S: Last Vital Signs Temp 97.0 F 01/07/20 16:12 Pulse 106 H 01/07/20 16:12 Resp 16 01/07/20 16:12 BP 149/98 H 01/07/20 16:12 Pulse Ox 96 01/07/20 16:12 - Orders/Labs/Meds Orders: Active Orders 24 hr Category Date Time Status EKG Documentation Completion [RC] STAT Care 01/07/20 16:55 Active Peripheral IV Care [RC] . DIRECTED Care 01/07/20 18:05 Active ANTICARDIOLIPIN AB, IGG, QN [REF] Stat Lab 01/07/20 20:19 Ordered ANTITHROMBIN ACTIVITY [REF] Stat Lab 01/07/20 20:19 Ordered FACTOR V LEIDEN MUTATION [REF] Stat Lab 01/07/20 20:19 Ordered PROTEIN C-FUNCTIONAL [REF] Stat Lab 01/07/20 20:19 Ordered PROTEIN S-FUNCTIONAL [REF] Stat Lab 01/07/20 20:19 Ordered TROPONIN I [CHEM] Timed Lab 01/07/20 19:50 Ordered Sodium Chloride 0.9% [Normal Saline] 100 ml Med 01/07/20 18:30 Active IV ASDIRECTED Sodium Chloride 0.9% [Saline Flush] Med 01/07/20 18:05 Active 10 ml FLUSH ASDIRECTED PRN Peripheral IV Insertion Adult [OM.PC] Stat Oth 01/07/20 18:05 Ordered Medication Orders Sodium Chloride (Normal Saline) 100 mls @ 60 mls/hr IV ASDIRECTED CAREY Last Admin: 01/07/20 19:38 Dose: 60 mls/hr Sodium Chloride (Saline Flush) 10 ml FLUSH ASDIRECTED PRN PRN Reason: Keep Vein Open Last Admin: 01/07/20 19:38 Dose: 10 ml Admin: 01/07/20 19:21 Dose: 10 ml Labs: Laboratory Tests 01/07/20 01/07/20 01/07/20 Range/Units 17:09 17:09 17:09 WBC 8.08 (3.98-10.04) K/mm3 RBC 4.94 (3.98-5.22) M/mm3 Hgb 14.7 D (11.2-15.7) gm/dl Hct 42.8 (34.1-44.9) % MCV 86.6 D (79.4-94.8) fl MCH 29.8 (25.6-32.2) pg MCHC 34.3 (32.2-35.5) g/dl RDW Std Deviation 42.3 (36.4-46.3) fL Plt Count 287 (182-369) K/mm3 MPV 9.6 (9.4-12.3) fl Neutrophils % (Manual) 57 (40-60) % Band Neutrophils % 0 (0-10) % Lymphocytes % (Manual) 35 (20-40) % Atypical Lymphs % 1 % Monocytes % (Manual) 6 (2-10) % Eosinophils % (Manual) 0 L (0.7-5.8) % Basophils % (Manual) 1 (0.1-1.2) Platelet Estimate Adequate RBC Morph Comment Normal PT 11.2 (9.7-12.0) SECONDS INR 1.03 APTT 25 (22-31) SECONDS D-Dimer, Quantitative 2.83 H (0.19-0.50) mg/L Sodium 143 (136-145) mEq/L Potassium 3.1 L (3.5-5.1) mEq/L Chloride 105 (98-107) mEq/L Carbon Dioxide 29 (21-32) mEq/L Anion Gap 12.1 (5-15) BUN 7 (7-18) mg/dL Creatinine 0.9 (0.55-1.02) mg/dL Est Cr Clr Drug Dosing 63.14 mL/min Estimated GFR (MDRD) > 60 (>60) mL/min BUN/Creatinine Ratio 7.8 L (14-18) Glucose 114 H (74-106) mg/dL Calcium 8.8 (8.5-10.1) mg/dL Magnesium 1.8 (1.8-2.4) mg/dl Total Bilirubin 0.5 (0.2-1.0) mg/dL AST 19 (15-37) U/L ALT 42 (14-59) U/L Alkaline Phosphatase 72 (46-116) U/L Troponin I 0.093 H* (0.00-0.056) ng/mL NT-Pro-B Natriuret Pep (0-125) pg/mL Total Protein 6.6 (6.4-8.2) g/dl Albumin 3.4 (3.4-5.0) g/dl Globulin 3.2 gm/dL Albumin/Globulin Ratio 1.1 (1-2) 01/07/20 Range/Units 17:09 WBC (3.98-10.04) K/mm3 RBC (3.98-5.22) M/mm3 Hgb (11.2-15.7) gm/dl Hct (34.1-44.9) % MCV (79.4-94.8) fl MCH (25.6-32.2) pg MCHC (32.2-35.5) g/dl RDW Std Deviation (36.4-46.3) fL Plt Count (182-369) K/mm3 MPV (9.4-12.3) fl Neutrophils % (Manual) (40-60) % Band Neutrophils % (0-10) % Lymphocytes % (Manual) (20-40) % Atypical Lymphs % % Monocytes % (Manual) (2-10) % Eosinophils % (Manual) (0.7-5.8) % Basophils % (Manual) (0.1-1.2) Platelet Estimate RBC Morph Comment PT (9.7-12.0) SECONDS INR APTT (22-31) SECONDS D-Dimer, Quantitative (0.19-0.50) mg/L Sodium (136-145) mEq/L Potassium (3.5-5.1) mEq/L Chloride (98-107) mEq/L Carbon Dioxide (21-32) mEq/L Anion Gap (5-15) BUN (7-18) mg/dL Creatinine (0.55-1.02) mg/dL Est Cr Clr Drug Dosing mL/min Estimated GFR (MDRD) (>60) mL/min BUN/Creatinine Ratio (14-18) Glucose (74-106) mg/dL Calcium (8.5-10.1) mg/dL Magnesium (1.8-2.4) mg/dl Total Bilirubin (0.2-1.0) mg/dL AST (15-37) U/L ALT (14-59) U/L Alkaline Phosphatase (46-116) U/L Troponin I (0.00-0.056) ng/mL NT-Pro-B Natriuret Pep 2566 H (0-125) pg/mL Total Protein (6.4-8.2) g/dl Albumin (3.4-5.0) g/dl Globulin gm/dL Albumin/Globulin Ratio (1-2) Meds: Medications Generic Name Dose Route Start Last Admin Trade Name Freq PRN Reason Stop Dose Admin Sodium Chloride 100 mls @ 60 mls/hr 01/07/20 18:30 01/07/20 19:38 Normal Saline IV 60 mls/hr ASDIRECTED CAREY Administration Sodium Chloride 10 ml 01/07/20 18:05 01/07/20 19:38 Saline Flush FLUSH 10 ml ASDIRECTED PRN Administration Keep Vein Open Discontinued Medications Generic Name Dose Route Start Last Admin Trade Name Freq PRN Reason Stop Dose Admin Iopamidol 100 ml 01/07/20 18:28 01/07/20 19:38 Isovue-370 (76%) IVPUSH 01/07/20 18:29 100 ml ONETIME ONE Administration Potassium Chloride 40 meq 01/07/20 19:03 01/07/20 19:24 Klor-Con M20 PO 01/07/20 19:04 40 meq ONETIME ONE Administration Sodium Chloride 10 ml 01/07/20 18:28 01/07/20 19:21 Saline Flush FLUSH 01/07/20 18:29 10 ml ONETIME ONE Administration - Re-Assessments/Exams Free Text/Narrative Re-Assessment/Exam: 01/07/20 17:07 Patient presents to the ED for evaluation of a possible blood clot in her left calf. Due to her reported history of heart issues, and heart feeling "fluttery ". We will do a full cardiac work-up at today's visit, to include the ultrasound of the left leg. Homans sign was positive, and she does have pain with passive dorsiflexion and extension of the left leg. 01/07/20 18:39 Patient's ultrasound demonstrates a mild amount of clot within the left posterior tibial vein. With a small abnormality within the left popliteal fossa which is nonspecific and measures 1.5 cm but is likely incidental. No other findings of DVT within the left leg. Patient's laboratory evaluation has come back as well, demonstrates a relatively normal CBC, elevated d-dimer at 2.83, elevated troponin at 0.093, mildly decreased potassium at 3.1, and elevated BNP at 2500. Patient has no kidney failure noted on metabolic panel, so we will go ahead and do the chest to make sure there is no PE on top of the DVT in the left lower leg. Findings were discussed with the patient and she is okay with this plan at this time. Will do repeat troponin in 3 hours, as the troponin might be elevated due to other clinical findings. Departure - Departure Time of Disposition: 20:32 Disposition: Refer to Observation Condition: Fair Clinical Impression: Pulmonary embolus Qualifiers: Pulmonary embolism type: multiple subsegmental (without acute cor pulmonale) Qualified Code(s): I26.94 - Multiple subsegmental pulmonary emboli without acute cor pulmonale DVT (deep venous thrombosis) Qualifiers: DVT location: lower extremity Affected thrombotic vein of extremity: popliteal Chronicity: acute Laterality: left Qualified Code(s): I82.432 - Acute embolism and thrombosis of left popliteal vein - Discharge Information *PRESCRIPTION DRUG MONITORING PROGRAM REVIEWED*: No *COPY OF PRESCRIPTION DRUG MONITORING REPORT IN PATIENT HTU: No Referrals: Yandy Michael PA-C [Primary Care Provider] - Forms: ED Department Discharge Sepsis Event Note - Evaluation Sepsis Screening Result: No Definite Risk - Focused Exam Vital Signs: Vital Signs Temp Pulse Resp BP Pulse Ox 01/07/20 16:12 97.0 F 106 H 16 149/98 H 96 Date Exam was Performed: 01/07/20 Time Exam was Performed: 20:19 - My Orders Last 24 Hours: My Active Orders 01/07/20 16:55 EKG Documentation Completion [RC] STAT 01/07/20 18:05 Peripheral IV Care [RC] . DIRECTED Sodium Chloride 0.9% [Saline Flush] 10 ml FLUSH ASDIRECTED PRN Peripheral IV Insertion Adult [OM.PC] Stat 01/07/20 18:30 Sodium Chloride 0.9% [Normal Saline] 100 ml IV ASDIRECTED 01/07/20 19:50 TROPONIN I [CHEM] Timed 01/07/20 20:19 ANTICARDIOLIPIN AB, IGG, QN [REF] Stat ANTITHROMBIN ACTIVITY [REF] Stat FACTOR V LEIDEN MUTATION [REF] Stat PROTEIN C-FUNCTIONAL [REF] Stat PROTEIN S-FUNCTIONAL [REF] Stat - Assessment/Plan Last 24 Hours: My Active Orders 01/07/20 16:55 EKG Documentation Completion [RC] STAT 01/07/20 18:05 Peripheral IV Care [RC] . DIRECTED Sodium Chloride 0.9% [Saline Flush] 10 ml FLUSH ASDIRECTED PRN Peripheral IV Insertion Adult [OM.PC] Stat 01/07/20 18:30 Sodium Chloride 0.9% [Normal Saline] 100 ml IV ASDIRECTED 01/07/20 19:50 TROPONIN I [CHEM] Timed 01/07/20 20:19 ANTICARDIOLIPIN AB, IGG, QN [REF] Stat ANTITHROMBIN ACTIVITY [REF] Stat FACTOR V LEIDEN MUTATION [REF] Stat PROTEIN C-FUNCTIONAL [REF] Stat PROTEIN S-FUNCTIONAL [REF] Stat
--- NOTE | 2020-01-07 18:21 | CR ---
Chest: Portable view of the chest was obtained. Comparison: Prior chest x-ray of 05/24/09. Heart size and mediastinum are within normal limits for portable technique. Lungs are clear with no acute parenchymal change. Bony structures are grossly intact. Impression: 1. Nothing acute is appreciated on portable chest x-ray. Diagnostic code #1 This report was dictated in [place] Standard Time
--- NOTE | 2020-01-07 18:25 | US ---
Left lower extremity deep venous ultrasound: Duplex and color Doppler evaluation was obtained the left common femoral, proximal greater saphenous, superficial femoral, popliteal, posterior tibial and peroneal veins. Right common femoral vein was also evaluated. Posterior tibial vein on the left side shows a small amount of intraluminal thrombus. Other vein show normal phasic flow, augmentation and compression. Small complicated cystic structure noted with the popliteal fossa measuring 1.5 cm in greatest dimension. Uncertain if this represents lymph node or other small soft tissue finding. Impression: 1. Mild amount of clot within the left posterior tibial vein. 2. Small abnormality within left popliteal fossa which is nonspecific and measures 1.5 cm but is likely incidental. 3. No other findings of deep venous thrombosis is seen. Diagnostic code #5 This report was dictated in [place] Standard Time
[2020-01-07] MEDS ORDERED: Sodium Chloride 0.9% 10 ML Syringe FLUSH ONE (18:28)
[2020-01-07] MEDS ORDERED: Iopamidol 755 Mg/ML 100 ML Bottle IVPUSH ONE (18:28)
[2020-01-07] MEDS ORDERED: Sodium Chloride 0.9% 100 ML IV SCH (18:30)
[2020-01-07] MEDS ORDERED: Potassium Chloride 20 MEQ Tab.ER PO ONE (19:03)
[2020-01-07] MEDS: Sodium Chloride 0.9% 10 ML Syringe FLUSH PRN ×2 (19:21→19:38)
--- NOTE | 2020-01-07 20:06 | CT ---
CT chest Technique: Multiple axial sections were obtained from above the lung apices inferiorly through the lung bases. Intravenous contrast was utilized. Study has been performed as a pulmonary angiogram protocol. Findings: Thrombus is identified within the superior vena cava as well as pulmonary emboli being seen within the distal right main pulmonary artery as well as extending into the segmental and subsegmental branches of the right lower lung. Pulmonary emboli are also noted within the segmental and subsegmental branches of the right middle lobe. Segmental and subsegmental pulmonary emboli are noted within the left lower lobe and within the lingula. Small amount of subsegmental clot is noted within the left upper lung. Mediastinum and hilar region show no adenopathy. No right ventricular dysfunction is seen at this time. Small portion of the visualized upper abdominal structures shows previous cholecystectomy with nothing acute being seen. Lungs show no acute parenchymal change. No pleural effusions are seen. Bone window settings were reviewed which shows no acute osseous finding. Impression: 1. Pulmonary emboli as noted above. 2. No findings of right ventricular dysfunction seen at this time. 3. Thrombus appears to be present within the superior vena cava. 4. No other acute finding is seen. Diagnostic code #5 This report was dictated in [place] Standard Time
[2020-01-07] MEDS ORDERED: Rivaroxaban 10 MG Tab PO ONE (20:47)
--- NOTE | 2020-01-08 07:32 | PCM.HP.2 ---
H&P History of Present Illness - General Date of Service: 01/08/20 Admit Problem/Dx: Admission Diagnosis/Problem Admission Diagnosis/Problem Pulmonary thromboembolism - History of Present Illness Initial Comments - Free Text/Narative: This is a 54 year old female with past medical history of HTN and fibromyalgia eho came to the ED complaining of worsening L calf pain for 3 days. As per patient she was in usual state of health until approximately 45 days ago when she started having worsening nausea and vomiting for which [facility] she was given IVF and prescribed as needed Phenergan and Toradol. Patient notes significant decrease in physical activity. 4 days ago she started noticing some aches in her calf that continued to get more uncomfortable and associated with increased tenderness on her L calf, associated with minor chest discomfort and palpitations, denies any swelling, numbness, tingling of legs. Left Lower Leg Pain Score (Numeric/FACES): 4 - Related Data Allergies/Adverse Reactions: Allergies Allergy/AdvReac Type Severity Reaction Status Date / Time Sulfa (Sulfonamide Allergy Itching Verified 01/07/20 22:07 Antibiotics) Home Medications: Home Meds RX: DULoxetine [Cymbalta] 60 mg PO DAILY 03/16/14 [History] RX: Metoprolol Succinate [Toprol XL] 50 mg PO DAILY 03/16/14 [History] RX: Cholecalciferol (Vitamin D3) [Vitamin D] 5,000 unit PO DAILY 03/27/16 [ History] RX: hydroCHLOROthiazide [Hydrochlorothiazide] 12.5 mg PO DAILY 03/27/16 [History ] RX: ALPRAZolam [Xanax] 0.25 mg PO Q12H PRN 04/11/19 [History] RX: Gabapentin [Neurontin] 100 mg PO BEDTIME 04/11/19 [History] Magnesium Oxide [Magnesium] 400 mg PO DAILY 01/07/20 [History] Past Medical History HEENT History: Reports: Impaired Vision Other HEENT History: wears glasses Cardiovascular History: Reports: Arrhythmia, High Cholesterol, Hypertension Other Cardiovascular History: SVT with successful ablation in 2008 Respiratory History: Reports: PE Gastrointestinal History: Reports: Diverticulosis, Other (See Below) Other Gastrointestinal History: diverticula Genitourinary History: Reports: Pyelonephritis, UTI, Recurrent 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: Musculoskeletal History: Reports: Osteoarthritis Other Musculoskeletal History: polyarthralgia, hypermobile joints, trochanertic bursitis of bilateral hips, pes anserinus bilateral knees, IT band syndrome Psychiatric History: Reports: Anxiety, Depression Other Psychiatric History: fatigue Endocrine/Metabolic History: Reports: Vitamin D Deficiency Other Endocrine/Metabolic History: pituitary microadenoma with HCC Hematologic History: Reports: Other (See Below) Other Hematologic History: HLA B27 POSITIVE Immunologic History: Reports: None Oncologic (Cancer) History: Reports: None Dermatologic History: Reports: None - Past Surgical History Head Surgeries/Procedures: Reports: None HEENT Surgical History: Reports: Oral Surgery Cardiovascular Surgical History: Reports: Cardiac Ablation Respiratory Surgical History: Reports: None GI Surgical History: Reports: Appendectomy, Cholecystectomy, Hernia, Inguinal Female Surgical History: Reports: Hysterectomy Neurological Surgical History: Reports: C-Spine Musculoskeletal Surgical History: Reports: Knee Replacement, Other (See Below) Other Musculoskeletal Surgeries/Procedures:: reports cervical surgery Oncologic Surgical History: Reports: None Dermatological Surgical History: Reports: None Social & Family History - Family History Family Medical History: Noncontributory - Tobacco Use Smoking Status *Q: Never Smoker Second Hand Smoke Exposure: No - Caffeine Use Caffeine Use: Reports: Coffee Other Caffeine Use: cup coffee/day - Recreational Drug Use Recreational Drug Use: No - Living Situation & Occupation Living situation: Reports: , with Spouse Occupation: Employed ([employer], [employer]) H&P Review of Systems - Review of Systems: Review Of Systems: See Below General: Reports: Weakness. Denies: Fever, Chills, Malaise, Fatigue, Night Sweats, Diaphoresis, Decreased Appetite, Weight Loss HEENT: Denies: Rhinitis, Post Nasal Drip, Sinus Congestion, Sore Throat, Vertigo , Visual Changes Pulmonary: Denies: Shortness of Breath, Wheezing, Pleuritic Chest Pain, Cough, Sputum Cardiovascular: Reports: Palpitations. Denies: Chest Pain, Dyspnea on Exertion , Orthopnea, PND, Edema, Lightheadedness, Syncope, Claudication Gastrointestinal: Reports: Nausea, Vomiting. Denies: Abdominal Pain, Anorexia, Black Stool, Bloody Stool, Constipation, Diarrhea, Decreased Appetite, Difficulty Swallowing, Distension, Flatus, Hematemesis, Melena, Mucous in Stool , Stool Incontinence Genitourinary: Denies: Dysuria, Frequency, Burning, Pain, Urgency, Incontinence Musculoskeletal: Reports: Leg Pain, Muscle Pain. Denies: Foot Pain, Joint Pain , Joint Swelling, Muscle Stiffness Skin: Denies: Cyanosis, Jaundice, Mottled, Pallor, Diaphoresis Psychiatric: Denies: Confusion, Depression, Mood Lability, Anxiety Neurological: Denies: Dizziness, Headache, Numbness, Paresthesia Hematologic/Lymphatic: Denies: Anemia, Easy Bleeding, Easy Bruising Immunologic: Denies: Anaphylaxis, Food Allergy Exam - Exam Exam: See Below - Vital Signs Vital Signs: Last Vital Signs Temp 97.9 F 01/08/20 04:55 Pulse 83 01/08/20 04:55 Resp 24 H 01/08/20 04:55 BP 122/73 01/08/20 04:55 Pulse Ox 94 L 01/08/20 04:55 Weight: 101.741 kg - Exam General: Alert, Oriented, Cooperative. No: Mild Distress HEENT: Conjunctiva Clear, EACs Clear, EOMI, Hearing Intact, Mucosa Moist & [place] Neck: Supple, Trachea Midline, +2 Carotid Pulse wo Bruit, Full Range of Motion. No: Lymphadenopathy Lungs: Clear to Auscultation, Normal Respiratory Effort. No: Crackles, Rales, Rhonchi, Rub, Wheezing Cardiovascular: Regular Rate, Regular Rhythm. No: Systolic Murmur, Diastolic Murmur, Rubs, Gallop/S3, Gallop/S4 GI/Abdominal Exam: Normal Bowel Sounds, Soft, Non-Tender, No Organomegaly, No Distention Back Exam: Normal Inspection, Full Range of Motion. No: CVA Tenderness (L), CVA Tenderness (R) Extremities: Normal Inspection, Normal Range of Motion, Normal Capillary Refill , Pedal Edema. No: Non-Tender - Patient Data Result Diagrams: 01/07/20 17:09 01/08/20 05:10 Sepsis Event Note - Evaluation Sepsis Screening Result: No Definite Risk - Focused Exam Vital Signs: Vital Signs Temp Pulse Resp BP Pulse Ox 01/08/20 04:55 97.9 F 83 24 H 122/73 94 L 01/07/20 23:37 98.8 F 94 124/76 93 L 01/07/20 21:36 98.1 F 94 24 H 133/85 90 L Date Exam was Performed: 01/08/20 Time Exam was Performed: 09:06 - Problem List (1) S/P ablation operation for arrhythmia SNOMED Code(s): 671487704, 189581109 ICD Code: Z98.890 - OTHER SPECIFIED POSTPROCEDURAL STATES; Z86.79 - PERSONAL HISTORY OF OTHER DISEASES OF THE CIRCULATORY SYSTEM Status: Acute Current Visit: Yes (2) DVT (deep venous thrombosis) SNOMED Code(s): 888664482 ICD Code: I82.409 - ACUTE EMBOLISM AND THOMBOS UNSP DEEP VN UNSP LOWER EXTREMITY Status: Acute Current Visit: Yes Qualifiers: DVT location: lower extremity Affected thrombotic vein of extremity: popliteal Chronicity: acute Laterality: left Qualified Code(s): I82.432 - Acute embolism and thrombosis of left popliteal vein (3) Pulmonary embolus SNOMED Code(s): 38944594 ICD Code: I26.99 - OTHER PULMONARY EMBOLISM WITHOUT ACUTE COR PULMONALE Status: Acute Current Visit: Yes Qualifiers: Pulmonary embolism type: multiple subsegmental (without acute cor pulmonale) Qualified Code(s): I26.94 - Multiple subsegmental pulmonary emboli without acute cor pulmonale (4) Anxiety SNOMED Code(s): 12108714 ICD Code: F41.9 - ANXIETY DISORDER, UNSPECIFIED Status: Acute Priority: Low Current Visit: No (5) Fibromyalgia SNOMED Code(s): 977897694 ICD Code: M79.7 - FIBROMYALGIA Status: Acute Priority: Medium Current Visit: No Problem List Initiated/Reviewed/Updated: Yes Assessment/Plan Comment:: DVT (deep venous thrombosis) Bilateral pulmonary emboli History of provoked DVT to R arm 2/2 PICC line Patient with worsening L calf pain Fount to have DVT with doppler US and confirmed PE by CTA Started on Xarelto last night PLAN - Continue Xarelto at therapeutic dose - Prothrombotic work up ordered and pending S/P ablation operation for SVT History of ablation in 2008 On metoprolol at home PLAN - Continue metoprolol Anxiety Fibromyalgia On Cymbalta and gabapentin at home PLAN - Continue home medications PROPHYLAXIS DVT- Xarelto GI- not indicated CODE STATUS: FULL CODE DISPOSITION: Patient admitted for overnight observation of VS overnight and pain control. - Mortality Measure Prognosis:: Good
[2020-01-08 08:33] VITALS: BP 135/79; PULSE 78
--- NOTE | 2020-01-08 09:14 | PCM.DCSUM1 ---
Discharge Summary - Hospital Course HPI Initial Comments: As per patient she was in usual state of health until approximately 45 days ago when she started having worsening nausea and vomiting for which she went [facility] for [facility] evaluation, she was given IVF and prescribed as needed Phenergan and Toradol. Patient notes significant decrease in physical activity. 4 days ago she started noticing some aches in her calf that continued to get more uncomfortable and associated with increased tenderness on her L calf, associated with minor chest discomfort and palpitations, denies any swelling, numbness, tingling of legs. Diagnosis: Stroke: No - Discharge Data Discharge Date: 01/08/20 Discharge Disposition: Home, Self-Care 01 Condition: Good - Referral to Home Health Primary Care Physician: KELBY Paredes - Discharge Diagnosis/Problem(s) (1) S/P ablation operation for arrhythmia SNOMED Code(s): 272127182, 963160851 ICD Code: Z98.890 - OTHER SPECIFIED POSTPROCEDURAL STATES; Z86.79 - PERSONAL HISTORY OF OTHER DISEASES OF THE CIRCULATORY SYSTEM Status: Acute (2) DVT (deep venous thrombosis) SNOMED Code(s): 982800492 ICD Code: I82.409 - ACUTE EMBOLISM AND THOMBOS UNSP DEEP VN UNSP LOWER EXTREMITY Status: Acute Qualifiers: DVT location: lower extremity Affected thrombotic vein of extremity: popliteal Chronicity: acute Laterality: left Qualified Code(s): I82.432 - Acute embolism and thrombosis of left popliteal vein (3) Pulmonary embolus SNOMED Code(s): 63173483 ICD Code: I26.99 - OTHER PULMONARY EMBOLISM WITHOUT ACUTE COR PULMONALE Status: Acute Qualifiers: Pulmonary embolism type: multiple subsegmental (without acute cor pulmonale) Qualified Code(s): I26.94 - Multiple subsegmental pulmonary emboli without acute cor pulmonale (4) Anxiety SNOMED Code(s): 92913970 ICD Code: F41.9 - ANXIETY DISORDER, UNSPECIFIED Status: Acute Priority: Low (5) Fibromyalgia SNOMED Code(s): 569879415 ICD Code: M79.7 - FIBROMYALGIA Status: Acute Priority: Medium - Patient Summary/Data Hospital Course: Admitted with LE edema + doppler for DVT PAtient with history of SVT, normal monitorization overnight Started patient on therapeutic Xarelto dose Discharged home - Discharge Plan *PRESCRIPTION DRUG MONITORING PROGRAM REVIEWED*: No *COPY OF PRESCRIPTION DRUG MONITORING REPORT IN PATIENT THU: No Prescriptions/Med Rec: Rivaroxaban [Xarelto] 15 mg PO BID #40 tablet Home Medications: Home Meds DULoxetine [Cymbalta] 60 mg PO DAILY 03/16/14 [History] Metoprolol Succinate [Toprol XL] 50 mg PO DAILY 03/16/14 [History] Cholecalciferol (Vitamin D3) [Vitamin D] 5,000 unit PO DAILY 03/27/16 [History] hydroCHLOROthiazide [Hydrochlorothiazide] 12.5 mg PO DAILY 03/27/16 [History] Gabapentin [Neurontin] 100 mg PO BEDTIME 04/11/19 [History] Magnesium Oxide [Magnesium] 400 mg PO DAILY 01/07/20 [History] Rivaroxaban [Xarelto] 15 mg PO BID #40 tablet 01/08/20 [Rx] Doxycycline [Vibramycin] 100 mg PO BID #14 cap 01/30/20 [Rx] Hydrocodone/Acetaminophen [Hydrocodon-Acetaminophen 5-325] 1 - 2 each PO Q6HR PRN #6 tablet 01/30/20 [Rx] Ketorolac [Toradol] 10 mg PO Q6H PRN #20 tab 02/02/20 [Rx] Ondansetron [Zofran ODT] 4 mg PO Q6H PRN #20 tab.dis 02/02/20 [Rx] Patient Handouts: Deep Vein Thrombosis, Venous Thromboembolism Prevention Referrals: Yandy Michael PA-C [Primary Care Provider] - 01/15/20 2:15 pm (Check in at 2 :00pm.) - Discharge Summary/Plan Comment DC Time >30 min.: Yes - General Info Date of Service: 01/08/20 Subjective Update: Had a good night Slept OK Tolerating diet Ambulating to and from restroom No SOB, palpitations, chest pain or any other complaints from patient No reports from nursing - Patient Data Vitals - Most Recent: Last Vital Signs Temp 97.9 F 01/08/20 08:25 Pulse 78 01/08/20 08:25 Resp 16 01/08/20 08:25 BP 135/79 01/08/20 08:25 Pulse Ox 95 01/08/20 08:25 Weight - Most Recent: 101.741 kg I&O - Last 24 hours: Intake & Output 01/07/20 01/08/20 01/08/20 22:59 06:59 14:59 Intake Total 800 Output Total 800 Balance 0 Lab Results - Last 24 hrs: Laboratory Results - last 24 hr 01/07/20 01/07/20 01/07/20 Range/Units 17:09 17:09 17:09 WBC 8.08 (3.98-10.04) K/mm3 RBC 4.94 (3.98-5.22) M/mm3 Hgb 14.7 D (11.2-15.7) gm/dl Hct 42.8 (34.1-44.9) % MCV 86.6 D (79.4-94.8) fl MCH 29.8 (25.6-32.2) pg MCHC 34.3 (32.2-35.5) g/dl RDW Std Deviation 42.3 (36.4-46.3) fL Plt Count 287 (182-369) K/mm3 MPV 9.6 (9.4-12.3) fl Neutrophils % (Manual) 57 (40-60) % Band Neutrophils % 0 (0-10) % Lymphocytes % (Manual) 35 (20-40) % Atypical Lymphs % 1 % Monocytes % (Manual) 6 (2-10) % Eosinophils % (Manual) 0 L (0.7-5.8) % Basophils % (Manual) 1 (0.1-1.2) Platelet Estimate Adequate RBC Morph Comment Normal Percent Retic 1.43 (0.50-1.70) % PT 11.2 (9.7-12.0) SECONDS INR 1.03 APTT 25 (22-31) SECONDS D-Dimer, Quantitative 2.83 H (0.19-0.50) mg/L Sodium 143 (136-145) mEq/L Potassium 3.1 L (3.5-5.1) mEq/L Chloride 105 (98-107) mEq/L Carbon Dioxide 29 (21-32) mEq/L Anion Gap 12.1 (5-15) BUN 7 (7-18) mg/dL Creatinine 0.9 (0.55-1.02) mg/dL Est Cr Clr Drug Dosing 63.14 mL/min Estimated GFR (MDRD) > 60 (>60) mL/min BUN/Creatinine Ratio 7.8 L (14-18) Glucose 114 H (74-106) mg/dL Calcium 8.8 (8.5-10.1) mg/dL Magnesium 1.8 (1.8-2.4) mg/dl Total Bilirubin 0.5 (0.2-1.0) mg/dL AST 19 (15-37) U/L ALT 42 (14-59) U/L Alkaline Phosphatase 72 (46-116) U/L Troponin I 0.093 H* (0.00-0.056) ng/mL NT-Pro-B Natriuret Pep (0-125) pg/mL Total Protein 6.6 (6.4-8.2) g/dl Albumin 3.4 (3.4-5.0) g/dl Globulin 3.2 gm/dL Albumin/Globulin Ratio 1.1 (1-2) Urine Color (Yellow) Urine Appearance (Clear) Urine pH (5.0-8.0) Ur Specific [place] (1.005-1.030) Urine Protein (Negative) Urine Glucose (UA) (Negative) Urine Ketones (Negative) Urine Occult Blood (Negative) Urine Nitrite (Negative) Urine Bilirubin (Negative) Urine Urobilinogen (0.2-1.0) Ur Leukocyte Esterase (Negative) Urine RBC (0-5) /hpf Urine WBC (0-5) /hpf Ur Squamous Epith Cells (0-5) /hpf Urine Bacteria (FEW) /hpf Urine Mucus (FEW) /hpf 01/07/20 01/07/20 01/07/20 Range/Units 17:09 20:20 21:30 WBC (3.98-10.04) K/mm3 RBC (3.98-5.22) M/mm3 Hgb (11.2-15.7) gm/dl Hct (34.1-44.9) % MCV (79.4-94.8) fl MCH (25.6-32.2) pg MCHC (32.2-35.5) g/dl RDW Std Deviation (36.4-46.3) fL Plt Count (182-369) K/mm3 MPV (9.4-12.3) fl Neutrophils % (Manual) (40-60) % Band Neutrophils % (0-10) % Lymphocytes % (Manual) (20-40) % Atypical Lymphs % % Monocytes % (Manual) (2-10) % Eosinophils % (Manual) (0.7-5.8) % Basophils % (Manual) (0.1-1.2) Platelet Estimate RBC Morph Comment Percent Retic (0.50-1.70) % PT (9.7-12.0) SECONDS INR APTT (22-31) SECONDS D-Dimer, Quantitative (0.19-0.50) mg/L Sodium (136-145) mEq/L Potassium (3.5-5.1) mEq/L Chloride (98-107) mEq/L Carbon Dioxide (21-32) mEq/L Anion Gap (5-15) BUN (7-18) mg/dL Creatinine (0.55-1.02) mg/dL Est Cr Clr Drug Dosing mL/min Estimated GFR (MDRD) (>60) mL/min BUN/Creatinine Ratio (14-18) Glucose (74-106) mg/dL Calcium (8.5-10.1) mg/dL Magnesium (1.8-2.4) mg/dl Total Bilirubin (0.2-1.0) mg/dL AST (15-37) U/L ALT (14-59) U/L Alkaline Phosphatase (46-116) U/L Troponin I 0.093 H* (0.00-0.056) ng/mL NT-Pro-B Natriuret Pep 2566 H (0-125) pg/mL Total Protein (6.4-8.2) g/dl Albumin (3.4-5.0) g/dl Globulin gm/dL Albumin/Globulin Ratio (1-2) Urine Color Light yellow (Yellow) Urine Appearance Clear (Clear) Urine pH 7.0 (5.0-8.0) Ur Specific [place] 1.010 (1.005-1.030) Urine Protein Negative (Negative) Urine Glucose (UA) Negative (Negative) Urine Ketones Negative (Negative) Urine Occult Blood Negative (Negative) Urine Nitrite Negative (Negative) Urine Bilirubin Negative (Negative) Urine Urobilinogen 1.0 (0.2-1.0) Ur Leukocyte Esterase Negative (Negative) Urine RBC 0-5 (0-5) /hpf Urine WBC 0-5 (0-5) /hpf Ur Squamous Epith Cells 0-5 (0-5) /hpf Urine Bacteria Occasional (FEW) /hpf Urine Mucus Not seen (FEW) /hpf 01/08/20 Range/Units 05:10 WBC (3.98-10.04) K/mm3 RBC (3.98-5.22) M/mm3 Hgb (11.2-15.7) gm/dl Hct (34.1-44.9) % MCV (79.4-94.8) fl MCH (25.6-32.2) pg MCHC (32.2-35.5) g/dl RDW Std Deviation (36.4-46.3) fL Plt Count (182-369) K/mm3 MPV (9.4-12.3) fl Neutrophils % (Manual) (40-60) % Band Neutrophils % (0-10) % Lymphocytes % (Manual) (20-40) % Atypical Lymphs % % Monocytes % (Manual) (2-10) % Eosinophils % (Manual) (0.7-5.8) % Basophils % (Manual) (0.1-1.2) Platelet Estimate RBC Morph Comment Percent Retic (0.50-1.70) % PT (9.7-12.0) SECONDS INR APTT (22-31) SECONDS D-Dimer, Quantitative (0.19-0.50) mg/L Sodium 142 (136-145) mEq/L Potassium 4.0 (3.5-5.1) mEq/L Chloride 103 (98-107) mEq/L Carbon Dioxide 31 (21-32) mEq/L Anion Gap 12.0 (5-15) BUN 10 (7-18) mg/dL Creatinine 1.0 (0.55-1.02) mg/dL Est Cr Clr Drug Dosing 56.83 mL/min Estimated GFR (MDRD) 58 (>60) mL/min BUN/Creatinine Ratio 10.0 L (14-18) Glucose 112 H (74-106) mg/dL Calcium 8.9 (8.5-10.1) mg/dL Magnesium (1.8-2.4) mg/dl Total Bilirubin (0.2-1.0) mg/dL AST (15-37) U/L ALT (14-59) U/L Alkaline Phosphatase (46-116) U/L Troponin I 0.034 (0.00-0.056) ng/mL NT-Pro-B Natriuret Pep (0-125) pg/mL Total Protein (6.4-8.2) g/dl Albumin (3.4-5.0) g/dl Globulin gm/dL Albumin/Globulin Ratio (1-2) Urine Color (Yellow) Urine Appearance (Clear) Urine pH (5.0-8.0) Ur Specific [place] (1.005-1.030) Urine Protein (Negative) Urine Glucose (UA) (Negative) Urine Ketones (Negative) Urine Occult Blood (Negative) Urine Nitrite (Negative) Urine Bilirubin (Negative) Urine Urobilinogen (0.2-1.0) Ur Leukocyte Esterase (Negative) Urine RBC (0-5) /hpf Urine WBC (0-5) /hpf Ur Squamous Epith Cells (0-5) /hpf Urine Bacteria (FEW) /hpf Urine Mucus (FEW) /hpf Med Orders - Current: Current Medications Sodium Chloride (Saline Flush) 10 ml FLUSH ASDIRECTED PRN PRN Reason: Keep Vein Open Last Admin: 01/07/20 19:38 Dose: 10 ml Discontinued Medications Sodium Chloride (Normal Saline) 100 mls @ 60 mls/hr IV ASDIRECTED CAREY Last Admin: 01/07/20 19:38 Dose: 60 mls/hr Iopamidol (Isovue-370 (76%)) 100 ml IVPUSH ONETIME ONE Stop: 01/07/20 18:29 Last Admin: 01/07/20 19:38 Dose: 100 ml Potassium Chloride (Klor-Con M20) 40 meq PO ONETIME ONE Stop: 01/07/20 19:04 Last Admin: 01/07/20 19:24 Dose: 40 meq Rivaroxaban (Xarelto) 20 mg PO ONETIME ONE Stop: 01/07/20 20:48 Last Admin: 01/07/20 21:44 Dose: 20 mg Sodium Chloride (Saline Flush) 10 ml FLUSH ONETIME ONE Stop: 01/07/20 18:29 Last Admin: 01/07/20 19:21 Dose: 10 ml - Exam Physical Findings Comments:: General: Alert, Oriented, Cooperative. No: Mild Distress HEENT: Conjunctiva Clear, EACs Clear, EOMI, Hearing Intact, Mucosa Moist & [place] Neck: Supple, Trachea Midline, +2 Carotid Pulse wo Bruit, Full Range of Motion. No: Lymphadenopathy Lungs: Clear to Auscultation, Normal Respiratory Effort. No: Crackles, Rales, Rhonchi, Rub, Wheezing Cardiovascular: Regular Rate, Regular Rhythm. No: Systolic Murmur, Diastolic Murmur, Rubs, Gallop/S3, Gallop/S4 GI/Abdominal Exam: Normal Bowel Sounds, Soft, Non-Tender, No Organomegaly, No Distention Back Exam: Normal Inspection, Full Range of Motion. No: CVA Tenderness (L), CVA Tenderness (R) Extremities: Normal Inspection, Normal Range of Motion, Normal Capillary Refill , Pedal Edema. No: Non-Tender
[2020-01-08] MEDS ORDERED: Rivaroxaban 15 MG Tab PO ONE (09:34)
== END 2020-01-08 10:20 | disposition home or self-care (01) ==
LOC: JD.ED 16:02 → JD.MS 20:35
PROVIDERS: ADMIT Internal Medicine; ATTEND Internal Medicine
DX: I82.432 Acute embolism and thrombosis of left popliteal vein (principal); I26.94 Multiple subsegmental thrombotic pulmonary emboli without acute cor pulmonale; F41.9 Anxiety disorder, unspecified; M79.7 Fibromyalgia; I10 Essential (primary) hypertension; M19.90 Unspecified osteoarthritis, unspecified site; F32.9 Major depressive disorder, single episode, unspecified; E78.00 Pure hypercholesterolemia, unspecified; Z98.890 Other specified postprocedural states; Z86.79 Personal history of other diseases of the circulatory system; Z79.899 Other long term (current) drug therapy; Z88.2 Allergy status to sulfonamides
CPT/HCPCS: 36415; 71045; 71275; 80048; 80053; 81001; 81241; 83090; 83735; 83880; 84484; 85007; 85027; 85045; 85046; 85300; 85303; 85306; 85379; 85610; 85730; 85732; 86038; 86147; 93005; 93971; 99285; A9270; G0378; J7050; Q9967; 93010; 99219; 99284

== ENCOUNTER 2020-01-30 08:45 | Emergency (ER) | payer BC ==
[2020-01-30 09:05] VITALS: BP 147/92; PULSE 73
[2020-01-30] MEDS ORDERED: Sodium Chloride 0.9% 10 ML Syringe FLUSH PRN (09:18)
[2020-01-30] MEDS ORDERED: Prochlorperazine 10 MG/2 ML SDV IVPUSH ONE (09:18)
[2020-01-30] MEDS ORDERED: Ketorolac 30 MG/ML SDV IVPUSH ONE (09:18)
[2020-01-30] MEDS ORDERED: diphenhydrAMINE 50 MG/ML SDV IVPUSH ONE (09:19)
--- NOTE | 2020-01-30 10:14 | CT ---
Head CT Technique: Multiple axial sections through the brain were obtained. Intravenous contrast was not utilized. Comparison: Prior head CT study of 03/15/10. Findings: Ventricles along with basal cisterns and sulci over the convexities are within normal limits for the patient's age. No abnormal parenchymal densities are seen. No evidence of intracranial hemorrhage. No midline shift or mass effect is seen. Bone window settings were reviewed. Mucosal thickening is seen within the sphenoid sinus. Possible small amount of fluid within the right sphenoid sinus is seen. Mastoid sinuses show nothing acute. No acute calvarial abnormality is seen. Impression: 1. Sinus findings. Small air-fluid level may relate to retained secretions but difficult to completely exclude mild acute sinusitis. Please correlate with the patient's symptoms. 2. No acute intracranial abnormality is appreciated. Diagnostic code #3 This report was dictated in [place] Standard Time
--- NOTE | 2020-01-30 10:32 | EDM.PDOC ---
ED HPI GENERAL MEDICAL PROBLEM - General Chief Complaint: Headache Stated Complaint: HEADACHE Time Seen by Provider: 01/30/20 09:15 Source of Information: Reports: Patient History Limitations: Reports: No Limitations - History of Present Illness INITIAL COMMENTS - FREE TEXT/NARRATIVE: The patient presents with a headache. This has been going on since Wednesday. She went to the walk in clinic yesterday. She had a shot of toradol and it went away but last night it came back stronger. She says it is the worse headache she has ever had. The pain is on the right side. She has some nausea with it. She has no numbness or weakness. She has no fever or chills. She does have some congestion and possibly sinus pressure. Onset: Gradual Duration: Day(s): Location: Reports: Head Quality: Reports: Ache, Sharp Severity: Severe Improves with: Reports: None Worsens with: Reports: None Associated Symptoms: Reports: Headaches, Nausea/Vomiting. Denies: Chest Pain, Cough, Fever/Chills, Shortness of Breath Headache Pain Score (Numeric/FACES): 9 - Related Data Allergies Allergy/AdvReac Type Severity Reaction Status Date / Time Sulfa (Sulfonamide Allergy Itching Verified 01/30/20 09:04 Antibiotics) Home Meds: Home Meds DULoxetine [Cymbalta] 60 mg PO DAILY 03/16/14 [History] Metoprolol Succinate [Toprol XL] 50 mg PO DAILY 03/16/14 [History] Cholecalciferol (Vitamin D3) [Vitamin D] 5,000 unit PO DAILY 03/27/16 [History] hydroCHLOROthiazide [Hydrochlorothiazide] 12.5 mg PO DAILY 03/27/16 [History] Gabapentin [Neurontin] 100 mg PO BEDTIME 04/11/19 [History] Magnesium Oxide [Magnesium] 400 mg PO DAILY 01/07/20 [History] Rivaroxaban [Xarelto] 15 mg PO BID #40 tablet 01/08/20 [Rx] Doxycycline [Vibramycin] 100 mg PO BID #14 cap 01/30/20 [Rx] Hydrocodone/Acetaminophen [Hydrocodon-Acetaminophen 5-325] 1 - 2 each PO Q6HR PRN #6 tablet 01/30/20 [Rx] Past Medical History HEENT History: Reports: Impaired Vision Other HEENT History: wears glasses Cardiovascular History: Reports: Arrhythmia, High Cholesterol, Hypertension Other Cardiovascular History: SVT with successful ablation in 2009 Respiratory History: Reports: PE Gastrointestinal History: Reports: Diverticulosis, Other (See Below) Other Gastrointestinal History: diverticula Genitourinary History: Reports: Pyelonephritis, UTI, 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: Musculoskeletal History: Reports: Osteoarthritis Other Musculoskeletal History: polyarthralgia, hypermobile joints, trochanertic bursitis of bilateral hips, pes anserinus bilateral knees, IT band syndrome Psychiatric History: Reports: Anxiety, Depression Other Psychiatric History: fatigue Endocrine/Metabolic History: Reports: Vitamin D Deficiency Other Endocrine/Metabolic History: pituitary microadenoma with HCC Hematologic History: Reports: Other (See Below) Other Hematologic History: HLA B27 POSITIVE Immunologic History: Reports: None Oncologic (Cancer) History: Reports: None Dermatologic History: Reports: None - Past Surgical History Head Surgeries/Procedures: Reports: None HEENT Surgical History: Reports: Oral Surgery Cardiovascular Surgical History: Reports: Cardiac Ablation Respiratory Surgical History: Reports: None GI Surgical History: Reports: Appendectomy, Cholecystectomy, Hernia, Inguinal Female Surgical History: Reports: Hysterectomy Neurological Surgical History: Reports: C-Spine Musculoskeletal Surgical History: Reports: Knee Replacement, Other (See Below) Other Musculoskeletal Surgeries/Procedures:: reports cervical surgery Oncologic Surgical History: Reports: None Dermatological Surgical History: Reports: None Social & Family History - Family History Family Medical History: Noncontributory - Tobacco Use Smoking Status *Q: Never Smoker - Caffeine Use Caffeine Use: Reports: None Other Caffeine Use: cup coffee/day - Recreational Drug Use Recreational Drug Use: No - Living Situation & Occupation Living situation: Reports: , with Spouse 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 Denies: No Symptoms, Vomiting : Reports: No Symptoms Musculoskeletal: Reports: No Symptoms Neurological: Reports: Headache - Physical Exam Exam: See Below Exam Limited By: No Limitations General Appearance: Alert, No Apparent Distress Ears: Normal External Exam Nose: Normal Inspection Head Exam: Atraumatic, Normocephalic Neck: Normal Inspection, Supple, Non-Tender Respiratory/Chest: No Respiratory Distress, Lungs Clear, Normal Breath Sounds Cardiovascular: Regular Rate, Rhythm, No Edema, No Murmur GI/Abdominal: Soft, Non-Tender, No Organomegaly, No Mass Neuro Exam (Abbreviated): Alert, Oriented, No Motor/Sensory Deficits Course - Vital Signs Last Recorded V/S: Last Vital Signs Temp 98.2 F 01/30/20 09:01 Pulse 73 01/30/20 09:01 Resp 18 01/30/20 09:01 BP 147/92 H 01/30/20 09:01 Pulse Ox 93 L 01/30/20 09:01 - Orders/Labs/Meds Orders: Active Orders 24 hr Category Date Time Status Peripheral IV Care [RC] . DIRECTED Care 01/30/20 09:18 Active Sodium Chloride 0.9% [Saline Flush] Med 01/30/20 09:18 Active 10 ml FLUSH ASDIRECTED PRN Peripheral IV Insertion Adult [OM.PC] Routine Oth 01/30/20 09:18 Ordered Medication Orders Sodium Chloride (Saline Flush) 10 ml FLUSH ASDIRECTED PRN PRN Reason: Keep Vein Open Last Admin: 01/30/20 09:30 Dose: 10 ml Meds: Medications Generic Name Dose Route Start Last Admin Trade Name Freq PRN Reason Stop Dose Admin Sodium Chloride 10 ml 01/30/20 09:18 01/30/20 09:30 Saline Flush FLUSH 10 ml ASDIRECTED PRN Administration Keep Vein Open Discontinued Medications Generic Name Dose Route Start Last Admin Trade Name Freq PRN Reason Stop Dose Admin Diphenhydramine HCl 50 mg 01/30/20 09:19 01/30/20 09:27 Benadryl IVPUSH 01/30/20 09:20 50 mg ONETIME ONE Administration Ketorolac Tromethamine 30 mg 01/30/20 09:18 01/30/20 09:25 Toradol IVPUSH 01/30/20 09:19 30 mg ONETIME ONE Administration Prochlorperazine Edisylate 10 mg 01/30/20 09:18 01/30/20 09:29 Compazine IVPUSH 01/30/20 09:19 10 mg ONETIME ONE Administration - Re-Assessments/Exams Free Text/Narrative Re-Assessment/Exam: 01/30/20 10:34 I ordered an IV saline lock, compazine 10mg IV, toradol 30mg IV, benadryl 50mg IV and a CT of her head. The CT shows sinus findings. Small air-fluid level may relate to retained secretions but difficult to completely exclude mild acute sinusitis. Please correlate with the patient's symptoms. No acute intracranial abnormality is appreciated. She does have sinusitis. I will get her on some doxycycline. Departure - Departure Time of Disposition: 10:40 Disposition: Home, Self-Care 01 Condition: Good Clinical Impression: Sinusitis Headache Qualifiers: Headache type: unspecified Headache chronicity pattern: acute headache Intractability: not intractable Qualified Code(s): R51 - Headache - Discharge Information *PRESCRIPTION DRUG MONITORING PROGRAM REVIEWED*: No *COPY OF PRESCRIPTION DRUG MONITORING REPORT IN PATIENT THU: No Prescriptions: Hydrocodone/Acetaminophen [Hydrocodon-Acetaminophen 5-325] 1 - 2 each PO Q6HR PRN #6 tablet PRN Reason: Pain Doxycycline [Vibramycin] 100 mg PO BID #14 cap Referrals: Yandy Michael PA-C [Primary Care Provider] - 1 Week Additional Instructions: Take the doxycycline 2 times per day for 7 days. Take tylenol or motrin for any pain or fever. If that does not help, try the hydrocodone. Please return if you are worse. Sepsis Event Note - Evaluation Sepsis Screening Result: No Definite Risk - Focused Exam Vital Signs: Vital Signs Temp Pulse Resp BP Pulse Ox 01/30/20 09:01 98.2 F 73 18 147/92 H 93 L Date Exam was Performed: 01/30/20 Time Exam was Performed: 10:26 - My Orders Last 24 Hours: My Active Orders 01/30/20 09:18 Peripheral IV Care [RC] . DIRECTED Sodium Chloride 0.9% [Saline Flush] 10 ml FLUSH ASDIRECTED PRN Peripheral IV Insertion Adult [OM.PC] Routine - Assessment/Plan Last 24 Hours: My Active Orders 01/30/20 09:18 Peripheral IV Care [RC] . DIRECTED Sodium Chloride 0.9% [Saline Flush] 10 ml FLUSH ASDIRECTED PRN Peripheral IV Insertion Adult [OM.PC] Routine
== END 2020-01-30 11:10 | disposition home or self-care (01) ==
LOC: JD.ED 08:45
DX: J32.9 Chronic sinusitis, unspecified (principal); I10 Essential (primary) hypertension; E78.00 Pure hypercholesterolemia, unspecified; M19.90 Unspecified osteoarthritis, unspecified site; F41.9 Anxiety disorder, unspecified; F32.9 Major depressive disorder, single episode, unspecified; Z88.2 Allergy status to sulfonamides; Z79.899 Other long term (current) drug therapy; Z79.01 Long term (current) use of anticoagulants
CPT/HCPCS: 70450; 96374; 96375; 99284; J0780; J1200; J1885

== ENCOUNTER 2020-01-31 05:06 | Emergency (ER) | payer BC ==
[2020-01-31 05:19] VITALS: BP 143/97; PULSE 80
[2020-01-31] MEDS ORDERED: diphenhydrAMINE 50 MG/ML SDV IVPUSH ONE (05:39)
[2020-01-31] MEDS ORDERED: Metoclopramide 10 MG/2 ML SDV IVPUSH ONE (05:39)
[2020-01-31] MEDS ORDERED: Sodium Chloride 0.9% 10 ML Syringe FLUSH PRN (05:39)
--- NOTE | 2020-01-31 05:43 | EDM.PDOC ---
ED HPI GENERAL MEDICAL PROBLEM - General Chief Complaint: Headache Stated Complaint: HEADACHE Time Seen by Provider: 01/31/20 05:24 Source of Information: Reports: Patient, RN Notes Reviewed - History of Present Illness INITIAL COMMENTS - FREE TEXT/NARRATIVE: 54 yr old female returns with R sided Bradley. She was evaluated yesterday in this ED with similar Bradley, had a CT of head that did show sinus disease, felt better at time of discharge but than had the Bradley come back last evening. She has had nausea, no vomiting. No fever or chills. History of occasional headaches in the past Head Pain Score (Numeric/FACES): 10 - Related Data Allergies Allergy/AdvReac Type Severity Reaction Status Date / Time Sulfa (Sulfonamide Allergy Itching Verified 01/31/20 05:14 Antibiotics) Home Meds: Home Meds DULoxetine [Cymbalta] 60 mg PO DAILY 03/16/14 [History] Metoprolol Succinate [Toprol XL] 50 mg PO DAILY 03/16/14 [History] Cholecalciferol (Vitamin D3) [Vitamin D] 5,000 unit PO DAILY 03/27/16 [History] hydroCHLOROthiazide [Hydrochlorothiazide] 12.5 mg PO DAILY 03/27/16 [History] Gabapentin [Neurontin] 100 mg PO BEDTIME 04/11/19 [History] Magnesium Oxide [Magnesium] 400 mg PO DAILY 01/07/20 [History] Rivaroxaban [Xarelto] 15 mg PO BID #40 tablet 01/08/20 [Rx] Doxycycline [Vibramycin] 100 mg PO BID #14 cap 01/30/20 [Rx] Hydrocodone/Acetaminophen [Hydrocodon-Acetaminophen 5-325] 1 - 2 each PO Q6HR PRN #6 tablet 01/30/20 [Rx] Past Medical History HEENT History: Reports: Impaired Vision Other HEENT History: wears glasses Cardiovascular History: Reports: Arrhythmia, High Cholesterol, Hypertension Other Cardiovascular History: SVT with successful ablation in 2008 Respiratory History: Reports: PE Gastrointestinal History: Reports: Diverticulosis, Other (See Below) Other Gastrointestinal History: diverticula Genitourinary History: Reports: Pyelonephritis, UTI, 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: Musculoskeletal History: Reports: Osteoarthritis Other Musculoskeletal History: polyarthralgia, hypermobile joints, trochanertic bursitis of bilateral hips, pes anserinus bilateral knees, IT band syndrome Psychiatric History: Reports: Anxiety, Depression Other Psychiatric History: fatigue Endocrine/Metabolic History: Reports: Vitamin D Deficiency Other Endocrine/Metabolic History: pituitary microadenoma with HCC Hematologic History: Reports: Other (See Below) Other Hematologic History: HLA B27 POSITIVE Immunologic History: Reports: None Oncologic (Cancer) History: Reports: None Dermatologic History: Reports: None - Past Surgical History Head Surgeries/Procedures: Reports: None HEENT Surgical History: Reports: Oral Surgery Cardiovascular Surgical History: Reports: Cardiac Ablation Respiratory Surgical History: Reports: None GI Surgical History: Reports: Appendectomy, Cholecystectomy, Hernia, Inguinal Female Surgical History: Reports: Hysterectomy Neurological Surgical History: Reports: C-Spine Musculoskeletal Surgical History: Reports: Knee Replacement, Other (See Below) Other Musculoskeletal Surgeries/Procedures:: reports cervical surgery Oncologic Surgical History: Reports: None Dermatological Surgical History: Reports: None Social & Family History - Family History Family Medical History: Noncontributory - Tobacco Use Smoking Status *Q: Unknown Ever Smoked - Caffeine Use Caffeine Use: Reports: None Other Caffeine Use: cup coffee/day - Living Situation & Occupation Living situation: Reports: , with Spouse 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 Denies: Throat Pain Respiratory: Denies: Shortness of Breath Cardiovascular: Denies: Chest Pain GI/Abdominal: Reports: Nausea. Denies: Abdominal Pain, Diarrhea, Vomiting Musculoskeletal: Reports: No Symptoms. Denies: Shoulder Pain, Arm Pain Skin: Denies: Rash Neurological: Reports: Headache. Denies: Numbness, Tingling, Trouble Speaking, Weakness - Physical Exam Exam: See Below General Appearance: Alert, Mild Distress Eye Exam: Bilateral Eye: PERRL Throat/Mouth: Other Head Exam: Atraumatic (Mucosa is somewhat dry) Neck: Supple, Full Range of Motion Respiratory/Chest: No Respiratory Distress, Lungs Clear, Normal Breath Sounds Cardiovascular: Regular Rate, Rhythm Neuro Exam (Abbreviated): Alert, Oriented, No Motor/Sensory Deficits Extremities: Normal Inspection, Normal Range of Motion Skin Exam: Warm, Dry, Normal Color, No Rash Course - Vital Signs Last Recorded V/S: Last Vital Signs Temp 98.3 F 01/31/20 05:14 Pulse 80 01/31/20 05:14 Resp 16 03/18/20 05:14 BP 143/97 H 01/31/20 05:14 Pulse Ox 100 01/31/20 05:14 - Orders/Labs/Meds Orders: Active Orders 24 hr Category Date Time Status Peripheral IV Care [RC] . DIRECTED Care 01/31/20 05:39 Active Ketorolac [Toradol] Med 01/31/20 05:45 Active 30 mg IVPUSH ONETIME Sodium Chloride 0.9% [Normal Saline] 1,000 ml Med 01/31/20 05:45 Active IV ONETIME Sodium Chloride 0.9% [Saline Flush] Med 01/31/20 05:39 Active 10 ml FLUSH ASDIRECTED PRN Peripheral IV Insertion Adult [OM.PC] Stat Oth 01/31/20 05:38 Ordered Medication Orders Sodium Chloride (Normal Saline) 1,000 mls @ 999 mls/hr IV ONETIME CAREY Last Admin: 01/31/20 05:50 Dose: 999 mls/hr Ketorolac Tromethamine (Toradol) 30 mg IVPUSH ONETIME CAREY Last Admin: 01/31/20 05:53 Dose: 30 mg Sodium Chloride (Saline Flush) 10 ml FLUSH ASDIRECTED PRN PRN Reason: Keep Vein Open Last Admin: 01/31/20 05:55 Dose: 10 ml Meds: Medications Generic Name Dose Route Start Last Admin Trade Name Freq PRN Reason Stop Dose Admin Sodium Chloride 1,000 mls @ 999 mls/hr 01/31/20 05:45 01/31/20 05:50 Normal Saline IV 999 mls/hr ONETIME CAREY Administration Ketorolac Tromethamine 30 mg 01/31/20 05:45 01/31/20 05:53 Toradol IVPUSH 30 mg ONETIME CAREY Administration Sodium Chloride 10 ml 01/31/20 05:39 01/31/20 05:55 Saline Flush FLUSH 10 ml ASDIRECTED PRN Administration Keep Vein Open Discontinued Medications Generic Name Dose Route Start Last Admin Trade Name Freq PRN Reason Stop Dose Admin Diphenhydramine HCl 25 mg 01/31/20 05:39 01/31/20 05:55 Benadryl IVPUSH 01/31/20 05:40 25 mg ONETIME ONE Administration Prochlorperazine Edisylate 5 51 mls @ 150 mls/hr 01/31/20 06:24 mg/ Sodium Chloride IV 01/31/20 06:44 ONETIME ONE Metoclopramide HCl 10 mg 01/31/20 05:39 01/31/20 05:51 Reglan IVPUSH 01/31/20 05:40 10 mg ONETIME ONE Administration Prochlorperazine Edisylate 5 mg 01/31/20 06:31 01/31/20 06:33 Compazine IVPUSH 01/31/20 06:32 5 mg ONETIME ONE Administration - Re-Assessments/Exams Free Text/Narrative Re-Assessment/Exam: 01/31/20 06:25 Better after IV Toradol Reglan and Benadryl. Headache now is down to a 3 or 4 from much more severe on arrival. Compazine 5 mg IV. States she is about getting comfortable enough to go home. 01/31/20 06:53. Headache is almost gone, discharge instructions as documented Departure - Departure Time of Disposition: 06:53 Disposition: Home, Self-Care 01 Condition: Fair Clinical Impression: Headache Qualifiers: Headache type: unspecified Headache chronicity pattern: acute headache Intractability: not intractable Qualified Code(s): R51 - Headache - Discharge Information Referrals: Yandy Michael PA-C [Primary Care Provider] - Forms: ED Department Discharge Additional Instructions: rest, clear liquids and bland diet as tolerated, contine current medications as prescribed, follow up clinic if not much better within 1 to 2 days as expected, return to ED as needed. Sepsis Event Note - Evaluation Sepsis Screening Result: No Definite Risk - Focused Exam Vital Signs: Vital Signs Temp Pulse Resp BP Pulse Ox 01/31/20 05:14 98.3 F 80 16 143/97 H 100 Date Exam was Performed: 01/31/20 Time Exam was Performed: 06:53 - My Orders Last 24 Hours: My Active Orders 01/31/20 05:38 Peripheral IV Insertion Adult [OM.PC] Stat 01/31/20 05:39 Peripheral IV Care [RC] . DIRECTED Sodium Chloride 0.9% [Saline Flush] 10 ml FLUSH ASDIRECTED PRN 01/31/20 05:45 Ketorolac [Toradol] 30 mg IVPUSH ONETIME Sodium Chloride 0.9% [Normal Saline] 1,000 ml IV ONETIME - Assessment/Plan Last 24 Hours: My Active Orders 01/31/20 05:38 Peripheral IV Insertion Adult [OM.PC] Stat 01/31/20 05:39 Peripheral IV Care [RC] . DIRECTED Sodium Chloride 0.9% [Saline Flush] 10 ml FLUSH ASDIRECTED PRN 01/31/20 05:45 Ketorolac [Toradol] 30 mg IVPUSH ONETIME Sodium Chloride 0.9% [Normal Saline] 1,000 ml IV ONETIME
[2020-01-31] MEDS ORDERED: Sodium Chloride 0.9% 1,000 ML IV SCH (05:45)
[2020-01-31] MEDS ORDERED: Ketorolac 30 MG/ML SDV IVPUSH SCH (05:45)
[2020-01-31] MEDS ORDERED: Prochlorperazine 5 MG in Sodium Chloride 0.9% 50 ML IV ONE (06:24)
[2020-01-31] MEDS ORDERED: Prochlorperazine 10 MG/2 ML SDV IVPUSH ONE (06:31)
== END 2020-01-31 07:03 | disposition home or self-care (01) ==
LOC: JD.ED 05:06
DX: R51 Headache (principal); I10 Essential (primary) hypertension; F41.9 Anxiety disorder, unspecified; F32.9 Major depressive disorder, single episode, unspecified; Z79.899 Other long term (current) drug therapy; Z79.01 Long term (current) use of anticoagulants; Z88.2 Allergy status to sulfonamides; Z86.711 Personal history of pulmonary embolism
CPT/HCPCS: 96361; 96374; 96375; 99284; J0780; J1200; J1885; J2765; J7030

== ENCOUNTER 2020-02-02 07:49 | Emergency (ER) | payer BC ==
[2020-02-02] MEDS ORDERED: Sodium Chloride 0.9% 10 ML Syringe FLUSH PRN (08:27)
[2020-02-02] MEDS ORDERED: Metoclopramide 10 MG/2 ML SDV IVPUSH ONE (08:27)
[2020-02-02] MEDS ORDERED: diphenhydrAMINE 50 MG/ML SDV IVPUSH ONE (08:28)
[2020-02-02] MEDS ORDERED: Ketorolac 30 MG/ML SDV IVPUSH ONE (08:28)
[2020-02-02] MEDS ORDERED: Sodium Chloride 0.9% 1,000 ML IV SCH (08:30)
--- NOTE | 2020-02-02 08:35 | EDM.PDOC ---
ED HPI GENERAL MEDICAL PROBLEM - General Chief Complaint: Headache Stated Complaint: MIGRAINE Time Seen by Provider: 02/02/20 08:13 Source of Information: Reports: Patient, Family History Limitations: Reports: No Limitations - History of Present Illness INITIAL COMMENTS - FREE TEXT/NARRATIVE: The patient presents with a headache. This all started earlier in the week. She has a right sided headache. She has nausea with it. She has no numbness or weakness. She has no blurred vision or double vision. She did have some sinus pressure and pain. She was seen at the walk in clinic Wednesday night and give a shot of toradol. She did get a little better but the headache came back and then she saw me on Wednesday the and I did a CT of her head and that showed some sinusitis. She got something for her headache and she felt better. She went home on antibiotics and some hydrocodone for pain. She came back with the same the next day and had meds and it helped. She went home and then she had more of a headache so she went to [facility] in [place] and they did an MRI and according to her it was normal. She continues to have the headache today. She has nausea. She has no numbness or weakness. She has no fever or chills. She says she had cramps last night. Onset: Gradual Duration: Day(s): Location: Reports: Head Quality: Reports: Sharp Severity: Severe Improves with: Reports: None Worsens with: Reports: None Associated Symptoms: Reports: Headaches, Nausea/Vomiting. Denies: Chest Pain, Cough, Fever/Chills, Shortness of Breath - Related Data Allergies Allergy/AdvReac Type Severity Reaction Status Date / Time Sulfa (Sulfonamide Allergy Itching Verified 01/31/20 05:14 Antibiotics) Home Meds: Home Meds DULoxetine [Cymbalta] 60 mg PO DAILY 03/16/14 [History] Metoprolol Succinate [Toprol XL] 50 mg PO DAILY 03/16/14 [History] Cholecalciferol (Vitamin D3) [Vitamin D] 5,000 unit PO DAILY 03/27/16 [History] hydroCHLOROthiazide [Hydrochlorothiazide] 12.5 mg PO DAILY 03/27/16 [History] Gabapentin [Neurontin] 100 mg PO BEDTIME 04/11/19 [History] Magnesium Oxide [Magnesium] 400 mg PO DAILY 01/07/20 [History] Rivaroxaban [Xarelto] 15 mg PO BID #40 tablet 01/08/20 [Rx] Doxycycline [Vibramycin] 100 mg PO BID #14 cap 01/30/20 [Rx] Hydrocodone/Acetaminophen [Hydrocodon-Acetaminophen 5-325] 1 - 2 each PO Q6HR PRN #6 tablet 01/30/20 [Rx] Ketorolac [Toradol] 10 mg PO Q6H PRN #20 tab 02/02/20 [Rx] Ondansetron [Zofran ODT] 4 mg PO Q6H PRN #20 tab.dis 02/02/20 [Rx] Past Medical History HEENT History: Reports: Impaired Vision Other HEENT History: wears glasses Cardiovascular History: Reports: Arrhythmia, High Cholesterol, Hypertension Other Cardiovascular History: SVT with successful ablation in 2008 Respiratory History: Reports: PE Gastrointestinal History: Reports: Diverticulosis, Other (See Below) Other Gastrointestinal History: diverticula Genitourinary History: Reports: Pyelonephritis, UTI, Recurrent W[employer] W[employer]ER History: Reports: Musculoskeletal History: Reports: Osteoarthritis Other Musculoskeletal History: polyarthralgia, hypermobile joints, trochanertic bursitis of bilateral hips, pes anserinus bilateral knees, IT band syndrome Psychiatric History: Reports: Anxiety, Depression Other Psychiatric History: fatigue Endocrine/Metabolic History: Reports: Vitamin D Deficiency Other Endocrine/Metabolic History: pituitary microadenoma with HCC Hematologic History: Reports: Other (See Below) Other Hematologic History: HLA B27 POSITIVE Immunologic History: Reports: None Oncologic (Cancer) History: Reports: None Dermatologic History: Reports: None - Past Surgical History Head Surgeries/Procedures: Reports: None HEENT Surgical History: Reports: Oral Surgery Cardiovascular Surgical History: Reports: Cardiac Ablation Respiratory Surgical History: Reports: None GI Surgical History: Reports: Appendectomy, Cholecystectomy, Hernia, Inguinal Female Surgical History: Reports: Hysterectomy Neurological Surgical History: Reports: C-Spine Musculoskeletal Surgical History: Reports: Knee Replacement, Other (See Below) Other Musculoskeletal Surgeries/Procedures:: reports cervical surgery Oncologic Surgical History: Reports: None Dermatological Surgical History: Reports: None Social & Family History - Family History Family Medical History: Noncontributory - Caffeine Use Caffeine Use: Reports: None Other Caffeine Use: cup coffee/day - Living Situation & Occupation Living situation: Reports: , with Spouse 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, 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[employer]) ED ROS GENERAL - Review of Systems Review Of Systems: See Below Constitutional: Reports: No Symptoms HEENT: Reports: No Symptoms Respiratory: Reports: No Symptoms Cardiovascular: Reports: No Symptoms Endocrine: Reports: No Symptoms GI/Abdominal: Reports: No Symptoms : Reports: No Symptoms Musculoskeletal: Reports: Other (generalized cramping) - Physical Exam Exam: See Below Exam Limited By: No Limitations General Appearance: Alert, No Apparent Distress Ears: Normal External Exam Nose: Normal Inspection Head Exam: Atraumatic, Normocephalic Neck: Normal Inspection Respiratory/Chest: No Respiratory Distress, Lungs Clear, Normal Breath Sounds Cardiovascular: Regular Rate, Rhythm, No Edema, No Murmur GI/Abdominal: Soft, Non-Tender, No Organomegaly, No Mass Neuro Exam (Abbreviated): Alert, Oriented, No Motor/Sensory Deficits Course - Vital Signs Last Recorded V/S: Last Vital Signs Temp 97.8 F 02/02/20 08:12 Pulse 60 02/02/20 08:12 Resp 16 02/02/20 08:12 BP 111/74 02/02/20 08:12 Pulse Ox 98 02/02/20 08:12 - Orders/Labs/Meds Orders: Active Orders 24 hr Category Date Time Status Cardiac Monitoring [RC] . DIRECTED Care 02/02/20 08:27 Active Peripheral IV Care [RC] . DIRECTED Care 02/02/20 08:27 Active Sodium Chloride 0.9% [Normal Saline] 1,000 ml Med 02/02/20 08:30 Active IV .BOLUS Sodium Chloride 0.9% [Saline Flush] Med 02/02/20 08:27 Active 10 ml FLUSH ASDIRECTED PRN ED Antiemetic Medication Reflex [OM.PC] Stat Oth 02/02/20 08:27 Ordered Peripheral IV Insertion Adult [OM.PC] Stat Oth 02/02/20 08:27 Ordered Medication Orders Sodium Chloride (Normal Saline) 1,000 mls @ 1,000 mls/hr IV .BOLUS CAREY Last Admin: 02/02/20 08:51 Dose: 1,000 mls/hr Sodium Chloride (Saline Flush) 10 ml FLUSH ASDIRECTED PRN PRN Reason: Keep Vein Open Last Admin: 02/02/20 09:00 Dose: 10 ml Labs: Laboratory Tests 02/02/20 02/02/20 Range/Units 08:45 08:45 WBC 7.41 (3.98-10.04) K/mm3 RBC 4.37 (3.98-5.22) M/mm3 Hgb 12.8 D (11.2-15.7) gm/dl Hct 39.3 (34.1-44.9) % MCV 89.9 D (79.4-94.8) fl MCH 29.3 (25.6-32.2) pg MCHC 32.6 (32.2-35.5) g/dl RDW Std Deviation 43.7 (36.4-46.3) fL Plt Count 293 (182-369) K/mm3 MPV 9.5 (9.4-12.3) fl Neut % (Auto) 72.6 H (34.0-71.1) % Lymph % (Auto) 16.7 L (19.3-51.7) % [place] % (Auto) 9.7 (4.7-12.5) % Eos % (Auto) 0 L (0.7-5.8) Baso % (Auto) 0.3 (0.1-1.2) % Neut # (Auto) 5.38 (1.56-6.13) K/mm3 Lymph # (Auto) 1.24 (1.18-3.74) K/mm3 [place] # (Auto) 0.72 H (0.24-0.36) K/mm3 Eos # (Auto) 0.00 L (0.04-0.36) K/mm3 Baso # (Auto) 0.02 (0.01-0.08) K/mm3 Sodium 145 (136-145) mEq/L Potassium 3.9 (3.5-5.1) mEq/L Chloride 105 (98-107) mEq/L Carbon Dioxide 30 (21-32) mEq/L Anion Gap 13.9 (5-15) BUN 13 (7-18) mg/dL Creatinine 1.0 (0.55-1.02) mg/dL Est Cr Clr Drug Dosing 56.83 mL/min Estimated GFR (MDRD) 58 (>60) mL/min BUN/Creatinine Ratio 13.0 L (14-18) Glucose 116 H (74-106) mg/dL Calcium 9.4 (8.5-10.1) mg/dL Magnesium 1.6 L (1.8-2.4) mg/dl Total Bilirubin 0.6 (0.2-1.0) mg/dL AST 32 (15-37) U/L ALT 246 H (14-59) U/L Alkaline Phosphatase 120 H (46-116) U/L C-Reactive Protein 6.5 H* (<1.0) mg/dL Total Protein 6.4 (6.4-8.2) g/dl Albumin 3.0 L (3.4-5.0) g/dl Globulin 3.4 gm/dL Albumin/Globulin Ratio 0.9 L (1-2) Meds: Medications Generic Name Dose Route Start Last Admin Trade Name Freq PRN Reason Stop Dose Admin Sodium Chloride 1,000 mls @ 1,000 mls/hr 02/02/20 08:30 02/02/20 08:51 Normal Saline IV 1,000 mls/hr .BOLUS CAREY Administration Sodium Chloride 10 ml 02/02/20 08:27 02/02/20 09:00 Saline Flush FLUSH 10 ml ASDIRECTED PRN Administration Keep Vein Open Discontinued Medications Generic Name Dose Route Start Last Admin Trade Name Freq PRN Reason Stop Dose Admin Diphenhydramine HCl 50 mg 02/02/20 08:28 02/02/20 08:53 Benadryl IVPUSH 02/02/20 08:29 50 mg ONETIME ONE Administration Ceftriaxone Sodium 2 gm/ 100 mls @ 200 mls/hr 02/02/20 10:00 02/02/20 10:07 Sodium Chloride IV 02/02/20 10:29 Not Given ONETIME ONE Ceftriaxone Sodium 2 gm/ 100 mls @ 200 mls/hr 02/02/20 10:05 02/02/20 10:14 Sodium Chloride IV 02/02/20 10:34 200 mls/hr Q24H ONE Administration Ketorolac Tromethamine 30 mg 02/02/20 08:28 02/02/20 08:50 Toradol IVPUSH 02/02/20 08:29 30 mg ONETIME ONE Administration Metoclopramide HCl 10 mg 02/02/20 08:27 02/02/20 08:52 Reglan IVPUSH 02/02/20 08:28 10 mg ONETIME ONE Administration Metoclopramide HCl Confirm 02/02/20 08:54 02/02/20 08:58 Reglan Administered 02/02/20 08:55 Not Given Dose 10 mg .ROUTE .[facility] ONE - Re-Assessments/Exams Free Text/Narrative Re-Assessment/Exam: 02/02/20 08:35 I ordered an IV NS 1L bolus, reglan 10mg IV, toradol 30mg IV, benadryl 50mg IV and labs. 02/02/20 10:23 Her headache is better. Her CBC looks good. Her ALT is elevated at 246. Her alk phos is elevated at 120. Her CRP is elevated at 6.5. I have ordered rocephin 2 grams IV. 02/02/20 11:36 She still feels good. I will get her some zofran and toradol for at home. Departure - Departure Time of Disposition: 11:40 Disposition: Home, Self-Care 01 Condition: Good Clinical Impression: Sinusitis Headache Qualifiers: Headache type: unspecified Headache chronicity pattern: acute headache Intractability: not intractable Qualified Code(s): R51 - Headache - Discharge Information *PRESCRIPTION DRUG MONITORING PROGRAM REVIEWED*: Not Applicable *COPY OF PRESCRIPTION DRUG MONITORING REPORT IN PATIENT THU: Not Applicable Prescriptions: Ketorolac [Toradol] 10 mg PO Q6H PRN #20 tab PRN Reason: Pain Ondansetron [Zofran ODT] 4 mg PO Q6H PRN #20 tab.dis PRN Reason: Nausea\vomiting Referrals: Yandy Michael PA-C [Primary Care Provider] - 1 Week Forms: ED Department Discharge Additional Instructions: Take your medication as prescribed. Take the toradol, zofran and benadryl 50mg together and that should help with the headache. Limit the toradol to a couple doses per day because it can think your blood a little more. Please return if you are worse. Sepsis Event Note - Evaluation Sepsis Screening Result: No Definite Risk - Focused Exam Vital Signs: Vital Signs Temp Pulse Resp BP Pulse Ox 02/02/20 08:12 97.8 F 60 16 111/74 98 Date Exam was Performed: 02/02/20 Time Exam was Performed: 11:36 - My Orders Last 24 Hours: My Active Orders 02/02/20 08:27 Cardiac Monitoring [RC] . DIRECTED Peripheral IV Care [RC] . DIRECTED Sodium Chloride 0.9% [Saline Flush] 10 ml FLUSH ASDIRECTED PRN ED Antiemetic Medication Reflex [OM.PC] Stat Peripheral IV Insertion Adult [OM.PC] Stat 02/02/20 08:30 Sodium Chloride 0.9% [Normal Saline] 1,000 ml IV .BOLUS - Assessment/Plan Last 24 Hours: My Active Orders 02/02/20 08:27 Cardiac Monitoring [RC] . DIRECTED Peripheral IV Care [RC] . DIRECTED Sodium Chloride 0.9% [Saline Flush] 10 ml FLUSH ASDIRECTED PRN ED Antiemetic Medication Reflex [OM.PC] Stat Peripheral IV Insertion Adult [OM.PC] Stat 02/02/20 08:30 Sodium Chloride 0.9% [Normal Saline] 1,000 ml IV .BOLUS
[2020-02-02] MEDS ORDERED: Metoclopramide 10 MG/2 ML SDV ONE (08:54)
[2020-02-02] MEDS ORDERED: cefTRIAXone 2 GM in Sodium Chloride 0.9% 100 ML IV ONE ×2 (10:00→10:05)
[2020-02-02 12:00] VITALS: BP 107/74; PULSE 62
== END 2020-02-02 11:57 | disposition home or self-care (01) ==
LOC: JD.ED 07:49
DX: J32.9 Chronic sinusitis, unspecified (principal)
CPT/HCPCS: 36415; 80053; 83735; 85025; 86140; 96361; 96365; 96375; 99284; J0696; J1200; J1885; J2765; J7030; J7050; 99283

== ENCOUNTER 2020-07-30 14:57 | Emergency (ER) | payer BC ==
[2020-07-30 15:13] VITALS: PULSE 133
[2020-07-30] MEDS ORDERED: Sodium Chloride 0.9% 10 ML Syringe FLUSH PRN (15:13)
[2020-07-30] MEDS ORDERED: Ondansetron 4 MG/2 ML SDV IVPUSH ONE (15:17)
--- NOTE | 2020-07-30 15:45 | EDM.PDOC ---
ED HPI GENERAL MEDICAL PROBLEM - General Chief Complaint: General Stated Complaint: SOB ON EXERTION/ABD PAIN Time Seen by Provider: 07/30/20 15:10 Source of Information: Reports: Patient History Limitations: Reports: No Limitations - History of Present Illness INITIAL COMMENTS - FREE TEXT/NARRATIVE: Patient is a 55-year-old female presenting to the emergency department with com plaints of shortness of breath on exertion as well as some left lower quadrant abdominal pain. She first noticed the symptoms on Wednesday which is 4 days ago. She attributed her left lower quadrant abdominal pain to a flareup of her diverticulitis as she had recently been treated with amoxicillin for this. She first noticed the shortness of breath when she was out on a walk with her granddaughter, however states since that time it has been getting progressively worse. That even walking to the bathroom causes her to be short of breath and dizzy. 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 She states she has been off her Xarelto for about a month and a half as she had a CT scan completed and was found to be free of clots. Last week she had some pain in her posterior calves and was concerned that she could have DVTs. She was seen at [facility] and ultrasounds were completed and she was found to be negative for blood clots. She denies any chest pain, however states with exertion her chest does feel heavy at times. She did feel slightly nauseous this morning for which she took a Zofran and has since resolved. Denies any cough, fever, chills, or vomiting. She has had a couple episodes of diarrhea over the last few days which she felt was likely related to a diverticulitis. Patient has a past medical history significant for SVT with an ablation in 2008. States she has had no problems with tachyarrhythmias since that time. Denies any history of [place]. Vital signs in triage show heart rate increased at 133, respiratory rate 18, oxygen saturation 88% on room air after ambulation. She did increase to 91% on room air with rest. Blood pressure 98/73, temperature 96.7. - Related Data Allergies Allergy/AdvReac Type Severity Reaction Status Date / Time Sulfa (Sulfonamide Allergy Itching Verified 07/30/20 15:12 Antibiotics) Home Meds: Home Meds DULoxetine [Cymbalta] 60 mg PO DAILY 03/16/14 [History] Metoprolol Succinate [Toprol XL] 50 mg PO DAILY 03/16/14 [History] Cholecalciferol (Vitamin D3) [Vitamin D] 5,000 unit PO DAILY 03/27/16 [History] hydroCHLOROthiazide [Hydrochlorothiazide] 12.5 mg PO DAILY 03/27/16 [History] Gabapentin [Neurontin] 100 mg PO BEDTIME 04/11/19 [History] Ondansetron [Zofran ODT] 4 mg PO Q6H PRN #20 tab.dis 02/02/20 [Rx] Amitriptyline [Elavil] 0 mg PO BEDTIME 07/30/20 [History] Past Medical History HEENT History: Reports: Impaired Vision Other HEENT History: wears glasses Cardiovascular History: Reports: Arrhythmia, High Cholesterol, Hypertension Other Cardiovascular History: SVT with successful ablation in 2008 Respiratory History: Reports: PE Gastrointestinal History: Reports: Diverticulosis, Other (See Below) Other Gastrointestinal History: diverticula Genitourinary History: Reports: Pyelonephritis, UTI, Recurrent [employer]ILDING [employer]INTE[employer]CE ME[employer]IC History: Reports: Musculoskeletal History: Reports: Osteoarthritis Other Musculoskeletal History: polyarthralgia, hypermobile joints, trochanertic bursitis of bilateral hips, pes anserinus bilateral knees, IT band syndrome Psychiatric History: Reports: Anxiety, Depression Other Psychiatric History: fatigue Endocrine/Metabolic History: Reports: Obesity/BMI 30+, Vitamin D Deficiency Other Endocrine/Metabolic History: pituitary microadenoma with HCC Hematologic History: Reports: Other (See Below) Other Hematologic History: HLA B27 POSITIVE Immunologic History: Reports: None Oncologic (Cancer) History: Reports: None Dermatologic History: Reports: None - Infectious Disease History Infectious Disease History: Reports: None - Past Surgical History HEENT Surgical History: Reports: Oral Surgery Cardiovascular Surgical History: Reports: Cardiac Ablation Respiratory Surgical History: Reports: None GI Surgical History: Reports: Appendectomy, Cholecystectomy, Hernia, Inguinal Female Surgical History: Reports: Hysterectomy Neurological Surgical History: Reports: C-Spine Musculoskeletal Surgical History: Reports: Knee Replacement, Other (See Below) Other Musculoskeletal Surgeries/Procedures:: reports cervical surgery Oncologic Surgical History: Reports: None Dermatological Surgical History: Reports: None Social & Family History - Family History Family Medical History: Noncontributory - Tobacco Use Smoking Status *Q: Never Smoker - Caffeine Use Caffeine Use: Reports: Coffee Other Caffeine Use: cup coffee/day - Recreational Drug Use Recreational Drug Use: No - Living Situation & Occupation Living situation: Reports: , with Spouse 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 Denies: Fever, Chills, Weakness HEENT: Reports: No Symptoms Respiratory: Reports: Shortness of Breath. Denies: Wheezing, Cough Cardiovascular: Reports: Dyspnea on Exertion, Lightheadedness, Palpitations. Denies: Chest Pain, Syncope Endocrine: Reports: No Symptoms GI/Abdominal: Reports: Abdominal Pain (Left lower quadrant), Diarrhea, Nausea. Denies: Vomiting : Reports: No Symptoms. Denies: Dysuria, Flank Pain Musculoskeletal: Reports: No Symptoms Skin: Reports: No Symptoms Neurological: Reports: No Symptoms Psychiatric: Reports: No Symptoms Hematologic/Lymphatic: Reports: No Symptoms Immunologic: Reports: No Symptoms ED EXAM, GENERAL - Physical Exam Exam: See Below General Appearance: Alert, WD/WN, No Apparent Distress Respiratory/Chest: No Respiratory Distress, Lungs Clear, Normal Breath Sounds, No Accessory Muscle Use, Chest Non-Tender Cardiovascular: Normal Peripheral Pulses, Regular Rate, Rhythm, No Edema, No Gallop, No JVD, No Murmur, No Rub GI/Abdominal: Normal Bowel Sounds, Soft, No Organomegaly, No Distention, No Abnormal Bruit, No Mass, Tender (mild LLQ tenderness) Extremities: Normal Inspection, Normal Range of Motion, Non-Tender, Normal Capillary Refill, No Pedal Edema Neurological: Alert, Oriented, CN II-XII Intact, Normal Cognition, Normal Gait, Normal Reflexes, No Motor/Sensory Deficits Psychiatric: Normal Affect, Normal Mood Skin Exam: Warm, Dry, Intact, Normal Color, No Rash Course - Vital Signs Last Recorded V/S: Last Vital Signs Temp 96.7 F L 07/30/20 15:08 Pulse 133 H 07/30/20 15:08 Resp 18 07/30/20 15:08 BP 98/73 07/30/20 15:08 Pulse Ox 95 07/30/20 16:24 - Orders/Labs/Meds Orders: Active Orders 24 hr Category Date Time Status EKG Documentation Completion [RC] STAT Care 07/30/20 15:15 Active Peripheral IV Care [RC] . DIRECTED Care 07/30/20 15:14 Active CULTURE BLOOD [BC] Stat Lab 07/30/20 15:35 Received CULTURE BLOOD [BC] Stat Lab 07/30/20 15:55 Received Heparin Sodium/D5W [Heparin 25,000 Units in D5W 500 ML] Med 07/30/20 16:45 Active 25,000 units in 500 ml IV TITRATE Sodium Chloride 0.9% [Normal Saline] 1,000 ml Med 07/30/20 18:35 Active IV NOW Sodium Chloride 0.9% [Saline Flush] Med 07/30/20 15:13 Active 10 ml FLUSH ASDIRECTED PRN Blood Culture x2 Reflex Set [OM.PC] Stat Oth 07/30/20 15:14 Ordered Peripheral IV Insertion Adult [OM.PC] Stat Oth 07/30/20 15:13 Ordered Medication Orders Heparin Sodium/Dextrose (Heparin 25,000 Units In D5w 500 Ml) 25,000 units in 500 mls @ 26 mls/hr IV TITRATE CAREY; Protocol Last Admin: 07/30/20 17:16 Dose: 1,300 units/hr, 26 mls/hr Documented by: JOSE RAMON Cosigned by: NERY Sodium Chloride (Normal Saline) 1,000 mls @ 125 mls/hr IV NOW STA Stop: 07/31/20 02:34 Last Admin: 07/30/20 19:12 Dose: Not Given Documented by: JOSE RAMON Sodium Chloride (Saline Flush) 10 ml FLUSH ASDIRECTED PRN PRN Reason: Keep Vein Open Last Admin: 07/30/20 15:39 Dose: 10 ml Documented by: BARBARA Labs: Laboratory Tests 07/30/20 07/30/20 07/30/20 Range/Units 15:35 15:35 15:35 WBC 9.40 (3.98-10.04) K/mm3 RBC 5.75 H (3.98-5.22) M/mm3 Hgb 17.1 H D (11.2-15.7) gm/dl Hct 49.9 H (34.1-44.9) % MCV 86.8 D (79.4-94.8) fl MCH 29.7 (25.6-32.2) pg MCHC 34.3 (32.2-35.5) g/dl RDW Std Deviation 44.1 (36.4-46.3) fL Plt Count 340 (182-369) K/mm3 MPV 10.9 (9.4-12.3) fl Neut % (Auto) 60.9 (34.0-71.1) % Lymph % (Auto) 31.3 (19.3-51.7) % [place] % (Auto) 6.8 (4.7-12.5) % Eos % (Auto) 0.4 L (0.7-5.8) Baso % (Auto) 0.3 (0.1-1.2) % Neut # (Auto) 5.72 (1.56-6.13) K/mm3 Lymph # (Auto) 2.94 (1.18-3.74) K/mm3 [place] # (Auto) 0.64 H (0.24-0.36) K/mm3 Eos # (Auto) 0.04 (0.04-0.36) K/mm3 Baso # (Auto) 0.03 (0.01-0.08) K/mm3 PT (9.7-11.7) SECONDS INR APTT (22-31) SECONDS D-Dimer, Quantitative 1.91 H (0.19-0.50) mg/L Sodium 140 (136-145) mEq/L Potassium 4.1 (3.5-5.1) mEq/L Chloride 100 (98-107) mEq/L Carbon Dioxide 26 (21-32) mEq/L Anion Gap 18.1 H (5-15) BUN 19 H (7-18) mg/dL Creatinine 1.2 H (0.55-1.02) mg/dL Est Cr Clr Drug Dosing 46.82 mL/min Estimated GFR (MDRD) 47 (>60) mL/min BUN/Creatinine Ratio 15.8 (14-18) Glucose 127 H (74-106) mg/dL Lactic Acid (0.4-2.0) mmol/L Calcium 9.7 (8.5-10.1) mg/dL Ferritin (8-252) ng/ml Total Bilirubin 0.8 (0.2-1.0) mg/dL AST 16 (15-37) U/L ALT 31 (14-59) U/L Alkaline Phosphatase 97 (46-116) U/L Lactate Dehydrogenase 228 (81-234) U/L Troponin I 0.033 (0.00-0.056) ng/mL C-Reactive Protein 2.6 H* (<1.0) mg/dL NT-Pro-B Natriuret Pep (0-125) pg/mL Total Protein 7.6 (6.4-8.2) g/dl Albumin 3.9 (3.4-5.0) g/dl Globulin 3.7 gm/dL Albumin/Globulin Ratio 1.1 (1-2) Urine Color (Yellow) Urine Appearance (Clear) Urine pH (5.0-8.0) Ur Specific [place] (1.005-1.030) Urine Protein (Negative) Urine Glucose (UA) (Negative) Urine Ketones (Negative) Urine Occult Blood (Negative) Urine Nitrite (Negative) Urine Bilirubin (Negative) Urine Urobilinogen (0.2-1.0) Ur Leukocyte Esterase (Negative) U Hyaline Cast (Auto) (0-5) /lpf Urine RBC (0-5) /hpf Urine WBC (0-5) /hpf Ur Squamous Epith Cells (0-5) /hpf Amorphous Sediment (NOT SEEN) /hpf Urine Bacteria (FEW) /hpf Urine Mucus (FEW) /hpf SARS-CoV-2 RNA (TIN) (NEGATIVE) 07/30/20 07/30/20 07/30/20 Range/Units 15:35 15:35 15:35 WBC (3.98-10.04) K/mm3 RBC (3.98-5.22) M/mm3 Hgb (11.2-15.7) gm/dl Hct (34.1-44.9) % MCV (79.4-94.8) fl MCH (25.6-32.2) pg MCHC (32.2-35.5) g/dl RDW Std Deviation (36.4-46.3) fL Plt Count (182-369) K/mm3 MPV (9.4-12.3) fl Neut % (Auto) (34.0-71.1) % Lymph % (Auto) (19.3-51.7) % [place] % (Auto) (4.7-12.5) % Eos % (Auto) (0.7-5.8) Baso % (Auto) (0.1-1.2) % Neut # (Auto) (1.56-6.13) K/mm3 Lymph # (Auto) (1.18-3.74) K/mm3 [place] # (Auto) (0.24-0.36) K/mm3 Eos # (Auto) (0.04-0.36) K/mm3 Baso # (Auto) (0.01-0.08) K/mm3 PT 11.0 (9.7-11.7) SECONDS INR 1.03 APTT 25 (22-31) SECONDS D-Dimer, Quantitative (0.19-0.50) mg/L Sodium (136-145) mEq/L Potassium (3.5-5.1) mEq/L Chloride (98-107) mEq/L Carbon Dioxide (21-32) mEq/L Anion Gap (5-15) BUN (7-18) mg/dL Creatinine (0.55-1.02) mg/dL Est Cr Clr Drug Dosing mL/min Estimated GFR (MDRD) (>60) mL/min BUN/Creatinine Ratio (14-18) Glucose (74-106) mg/dL Lactic Acid 2.6 H* (0.4-2.0) mmol/L Calcium (8.5-10.1) mg/dL Ferritin 126 (8-252) ng/ml Total Bilirubin (0.2-1.0) mg/dL AST (15-37) U/L ALT (14-59) U/L Alkaline Phosphatase (46-116) U/L Lactate Dehydrogenase (81-234) U/L Troponin I (0.00-0.056) ng/mL C-Reactive Protein (<1.0) mg/dL NT-Pro-B Natriuret Pep (0-125) pg/mL Total Protein (6.4-8.2) g/dl Albumin (3.4-5.0) g/dl Globulin gm/dL Albumin/Globulin Ratio (1-2) Urine Color (Yellow) Urine Appearance (Clear) Urine pH (5.0-8.0) Ur Specific [place] (1.005-1.030) Urine Protein (Negative) Urine Glucose (UA) (Negative) Urine Ketones (Negative) Urine Occult Blood (Negative) Urine Nitrite (Negative) Urine Bilirubin (Negative) Urine Urobilinogen (0.2-1.0) Ur Leukocyte Esterase (Negative) U Hyaline Cast (Auto) (0-5) /lpf Urine RBC (0-5) /hpf Urine WBC (0-5) /hpf Ur Squamous Epith Cells (0-5) /hpf Amorphous Sediment (NOT SEEN) /hpf Urine Bacteria (FEW) /hpf Urine Mucus (FEW) /hpf SARS-CoV-2 RNA (TIN) (NEGATIVE) 07/30/20 07/30/20 07/30/20 Range/Units 15:35 15:51 15:51 WBC (3.98-10.04) K/mm3 RBC (3.98-5.22) M/mm3 Hgb (11.2-15.7) gm/dl Hct (34.1-44.9) % MCV (79.4-94.8) fl MCH (25.6-32.2) pg MCHC (32.2-35.5) g/dl RDW Std Deviation (36.4-46.3) fL Plt Count (182-369) K/mm3 MPV (9.4-12.3) fl Neut % (Auto) (34.0-71.1) % Lymph % (Auto) (19.3-51.7) % [place] % (Auto) (4.7-12.5) % Eos % (Auto) (0.7-5.8) Baso % (Auto) (0.1-1.2) % Neut # (Auto) (1.56-6.13) K/mm3 Lymph # (Auto) (1.18-3.74) K/mm3 [place] # (Auto) (0.24-0.36) K/mm3 Eos # (Auto) (0.04-0.36) K/mm3 Baso # (Auto) (0.01-0.08) K/mm3 PT (9.7-11.7) SECONDS INR APTT (22-31) SECONDS D-Dimer, Quantitative (0.19-0.50) mg/L Sodium (136-145) mEq/L Potassium (3.5-5.1) mEq/L Chloride (98-107) mEq/L Carbon Dioxide (21-32) mEq/L Anion Gap (5-15) BUN (7-18) mg/dL Creatinine (0.55-1.02) mg/dL Est Cr Clr Drug Dosing mL/min Estimated GFR (MDRD) (>60) mL/min BUN/Creatinine Ratio (14-18) Glucose (74-106) mg/dL Lactic Acid (0.4-2.0) mmol/L Calcium (8.5-10.1) mg/dL Ferritin (8-252) ng/ml Total Bilirubin (0.2-1.0) mg/dL AST (15-37) U/L ALT (14-59) U/L Alkaline Phosphatase (46-116) U/L Lactate Dehydrogenase (81-234) U/L Troponin I (0.00-0.056) ng/mL C-Reactive Protein (<1.0) mg/dL NT-Pro-B Natriuret Pep 9311 H (0-125) pg/mL Total Protein (6.4-8.2) g/dl Albumin (3.4-5.0) g/dl Globulin gm/dL Albumin/Globulin Ratio (1-2) Urine Color Dark yellow (Yellow) Urine Appearance Slt cloudy H (Clear) Urine pH 5.5 (5.0-8.0) Ur Specific [place] > or = 1.030 (1.005-1.030) Urine Protein 3+ H (Negative) Urine Glucose (UA) Negative (Negative) Urine Ketones Negative (Negative) Urine Occult Blood Negative (Negative) Urine Nitrite Negative (Negative) Urine Bilirubin 3+ H (Negative) Urine Urobilinogen 2.0 H (0.2-1.0) Ur Leukocyte Esterase Negative (Negative) U Hyaline Cast (Auto) 0-5 (0-5) /lpf Urine RBC Not seen (0-5) /hpf Urine WBC 0-5 (0-5) /hpf Ur Squamous Epith Cells 40-50 H (0-5) /hpf Amorphous Sediment Few H (NOT SEEN) /hpf Urine Bacteria Rare (FEW) /hpf Urine Mucus Not seen (FEW) /hpf SARS-CoV-2 RNA (TIN) Negative (NEGATIVE) 07/30/20 Range/Units 18:52 WBC (3.98-10.04) K/mm3 RBC (3.98-5.22) M/mm3 Hgb (11.2-15.7) gm/dl Hct (34.1-44.9) % MCV (79.4-94.8) fl MCH (25.6-32.2) pg MCHC (32.2-35.5) g/dl RDW Std Deviation (36.4-46.3) fL Plt Count (182-369) K/mm3 MPV (9.4-12.3) fl Neut % (Auto) (34.0-71.1) % Lymph % (Auto) (19.3-51.7) % [place] % (Auto) (4.7-12.5) % Eos % (Auto) (0.7-5.8) Baso % (Auto) (0.1-1.2) % Neut # (Auto) (1.56-6.13) K/mm3 Lymph # (Auto) (1.18-3.74) K/mm3 [place] # (Auto) (0.24-0.36) K/mm3 Eos # (Auto) (0.04-0.36) K/mm3 Baso # (Auto) (0.01-0.08) K/mm3 PT (9.7-11.7) SECONDS INR APTT (22-31) SECONDS D-Dimer, Quantitative (0.19-0.50) mg/L Sodium (136-145) mEq/L Potassium (3.5-5.1) mEq/L Chloride (98-107) mEq/L Carbon Dioxide (21-32) mEq/L Anion Gap (5-15) BUN (7-18) mg/dL Creatinine (0.55-1.02) mg/dL Est Cr Clr Drug Dosing mL/min Estimated GFR (MDRD) (>60) mL/min BUN/Creatinine Ratio (14-18) Glucose (74-106) mg/dL Lactic Acid 1.6 (0.4-2.0) mmol/L Calcium (8.5-10.1) mg/dL Ferritin (8-252) ng/ml Total Bilirubin (0.2-1.0) mg/dL AST (15-37) U/L ALT (14-59) U/L Alkaline Phosphatase (46-116) U/L Lactate Dehydrogenase (81-234) U/L Troponin I (0.00-0.056) ng/mL C-Reactive Protein (<1.0) mg/dL NT-Pro-B Natriuret Pep (0-125) pg/mL Total Protein (6.4-8.2) g/dl Albumin (3.4-5.0) g/dl Globulin gm/dL Albumin/Globulin Ratio (1-2) Urine Color (Yellow) Urine Appearance (Clear) Urine pH (5.0-8.0) Ur Specific [place] (1.005-1.030) Urine Protein (Negative) Urine Glucose (UA) (Negative) Urine Ketones (Negative) Urine Occult Blood (Negative) Urine Nitrite (Negative) Urine Bilirubin (Negative) Urine Urobilinogen (0.2-1.0) Ur Leukocyte Esterase (Negative) U Hyaline Cast (Auto) (0-5) /lpf Urine RBC (0-5) /hpf Urine WBC (0-5) /hpf Ur Squamous Epith Cells (0-5) /hpf Amorphous Sediment (NOT SEEN) /hpf Urine Bacteria (FEW) /hpf Urine Mucus (FEW) /hpf SARS-CoV-2 RNA (TIN) (NEGATIVE) Meds: Medications Generic Name Dose Route Start Last Admin Trade Name Freq PRN Reason Stop Dose Admin Heparin Sodium/Dextrose 25,000 units in 500 mls @ 26 mls/hr 07/30/20 16:45 07/30/20 17:16 Heparin 25,000 Units In D5w 500 Ml IV 1,300 units/hr TITRATE CAREY 26 mls/hr Administration Protocol 1,300 UNITS/HR Sodium Chloride 1,000 mls @ 125 mls/hr 07/30/20 18:35 07/30/20 19:12 Normal Saline IV 07/31/20 02:34 Not Given NOW STA Sodium Chloride 10 ml 07/30/20 15:13 07/30/20 15:39 Saline Flush FLUSH 10 ml ASDIRECTED PRN Administration Keep Vein Open Discontinued Medications Generic Name Dose Route Start Last Admin Trade Name Freq PRN Reason Stop Dose Admin Heparin Sodium (Porcine) 5,000 units 07/30/20 16:41 07/30/20 17:13 Heparin Sodium IVPUSH 07/30/20 16:42 5,000 units .BOLUS ONE Administration Sodium Chloride 1,000 mls @ 999 mls/hr 07/30/20 16:36 07/30/20 17:13 Normal Saline IV 07/30/20 17:36 999 mls/hr NOW STA Administration Ondansetron HCl 4 mg 07/30/20 15:17 07/30/20 15:39 Gwyn IVPUSH 07/30/20 15:18 Not Given ONETIME ONE - Re-Assessments/Exams Free Text/Narrative Re-Assessment/Exam: 07/30/20 16:51 Hematology was significant for hemoglobin elevated at 17.1, d-dimer 1.91, anion gap 18.1, BUN 19 creatinine 1.2, glucose 127, CRP 2.6, lactic acid 2.6. Urinalysis was negative for any infection. Coronavirus test is still pending. I am very suspicious that patient has a PE based on her clinical presentation and history. Lab work also indicates that she is dehydrated. I have ordered a 1 L bolus of normal saline as well as a heparin drip per VTE protocol. I have put in for a CT angiogram of the chest, as well as an abdomen pelvis with IV contrast. 07/30/20 18:00 CT scan of the abdomen pelvis was negative for any acute abnormalities. CT angiogram shows extensive pulmonary emboli in both sides of the lungs with findings consistent of right-sided heart strain. Called [facility] in [place] and spoke with interventional radiologist, Dr. Godinez. He reviewed the images and verbalized that based on patient's tachycardia and the degree of heart strain, he would recommend thrombectomy. They are unsure at this point if they have beds available in order to accept the patient. One call nurse, Denys, will call me back once he receives word if they have beds. If [place] does not have available beds, I will contact [facility]. 07/30/20 18:25 Received a phone call back from Denys, one call nurse at [facility]. They have made arrangements for the patient to be accepted for admission with the intent of thrombectomy. Spoke with ER physician, Dr. Rodriguez. He accepted the patient for transfer. Patient updated and she is in agreement. I also spoke with the patient's , Robson. He verbalized understanding. Patient will transport via ground ambulance. Departure - Departure Time of Disposition: 18:25 Disposition: Home, Self-Care 01 Condition: Good Clinical Impression: Pulmonary embolism with acute cor pulmonale Qualifiers: Pulmonary embolism type: unspecified Chronicity: acute Qualified Code(s): I26.09 - Other pulmonary embolism with acute cor pulmonale - Discharge Information Referrals: Yandy Michael PA-C [Primary Care Provider] - Forms: ED Department Discharge Sepsis Event Note (ED) - Evaluation Sepsis Screening Result: No Definite Risk - Focused Exam Vital Signs: Vital Signs Temp Pulse Resp BP Pulse Ox Pulse Ox 07/30/20 16:24 95 07/30/20 16:20 87 L 07/30/20 15:08 96.7 F L 133 H 18 98/73 88 L - My Orders Last 24 Hours: My Active Orders 07/30/20 15:13 Sodium Chloride 0.9% [Saline Flush] 10 ml FLUSH ASDIRECTED PRN Peripheral IV Insertion Adult [OM.PC] Stat 07/30/20 15:14 Peripheral IV Care [RC] . DIRECTED Blood Culture x2 Reflex Set [OM.PC] Stat 07/30/20 15:15 EKG Documentation Completion [RC] STAT 07/30/20 15:35 CULTURE BLOOD [BC] Stat 07/30/20 15:55 CULTURE BLOOD [BC] Stat 07/30/20 16:45 Heparin Sodium/D5W [Heparin 25,000 Units in D5W 500 ML] 25,000 units in 500 ml IV TITRATE 07/30/20 18:35 Sodium Chloride 0.9% [Normal Saline] 1,000 ml IV NOW - Assessment/Plan Last 24 Hours: My Active Orders 07/30/20 15:13 Sodium Chloride 0.9% [Saline Flush] 10 ml FLUSH ASDIRECTED PRN Peripheral IV Insertion Adult [OM.PC] Stat 07/30/20 15:14 Peripheral IV Care [RC] . DIRECTED Blood Culture x2 Reflex Set [OM.PC] Stat 07/30/20 15:15 EKG Documentation Completion [RC] STAT 07/30/20 15:35 CULTURE BLOOD [BC] Stat 07/30/20 15:55 CULTURE BLOOD [BC] Stat 07/30/20 16:45 Heparin Sodium/D5W [Heparin 25,000 Units in D5W 500 ML] 25,000 units in 500 ml IV TITRATE 07/30/20 18:35 Sodium Chloride 0.9% [Normal Saline] 1,000 ml IV NOW
--- NOTE | 2020-07-30 16:27 | CR ---
Chest: Portable view of the chest was obtained. Comparison: Prior chest x-ray of 01/07/20. Heart size and mediastinum are normal. Lungs are clear with no acute parenchymal change. Prior cervical spine surgery is noted. Bony structures are grossly intact. Impression: 1. Nothing acute is seen on portable chest x-ray. Diagnostic code #2 This report was dictated in MDT
[2020-07-30] MEDS ORDERED: Sodium Chloride 0.9% 1,000 ML IV STA ×2 (16:36→18:35)
[2020-07-30] MEDS ORDERED: Heparin Sodium 5,000 Units/ML Vial IVPUSH ONE (16:41)
[2020-07-30] MEDS ORDERED: Heparin Sodium/D5W 25,000 UNITS/500 ML BAG IV SCH (16:45)
--- NOTE | 2020-07-30 17:34 | CT ---
CT chest Technique: Multiple axial sections through the chest were obtained. Intravenous contrast was utilized. Intravenous contrast was utilized. Comparison: Prior chest CT study of 01/07/20. Findings: Pulmonary emboli are seen within the right and left main pulmonary arteries. Pulmonary emboli extend into the segmental branches of the right and left pulmonary arteries as well as within more distal aspects of the pulmonary arteries. This is a fairly significant load of pulmonary embolism. Mild bowing of the intraventricular septum is seen with dilatation of the right ventricle compatible with right heart strain. Mediastinum and hilar regions show no adenopathy or mass. Coronary artery calcification is noted. No pericardial thickening is seen. Visualized upper abdominal structures appear unremarkable. Surgical clips are seen from previous cholecystectomy. Lungs show no acute parenchymal change. No pleural effusions are seen. Bone window settings were reviewed which shows no acute osseous finding. Impression: 1. Extensive pulmonary emboli on both sides. Findings cause right heart strain as noted above. 2. Other findings as noted above. No other acute abnormality is appreciated on CT study of the chest. Diagnostic code #5 This report was dictated in MDT
--- NOTE | 2020-07-30 17:37 | CT ---
CT abdomen and pelvis Technique: Multiple axial sections were obtained from above the dome of the diaphragm inferiorly through the pubic symphysis. Intravenous contrast was utilized. No oral contrast has been given. Comparison: Prior CT abdomen and pelvis exam of 03/27/16. Findings: Pulmonary emboli again noted within the chest. Liver contains no focal parenchymal abnormality. Spleen appears within normal limits. Adrenal glands show no nodule. Pancreas shows no discrete abnormality. Aorta shows no aneurysm. No retroperitoneal adenopathy or mesenteric abnormalities are seen. Surgical clips are seen from prior cholecystectomy. Aorta shows atherosclerotic change without aneurysm. No pelvic mass or adenopathy is seen. No free fluid or inflammatory change is seen within the abdomen or pelvis. Diverticuli are seen within the sigmoid colon without inflammatory change of diverticulitis. Delayed images show shows contrast within both distal ureters and within the bladder. Bone window settings were reviewed which show spondylolisthesis and severe disc space narrowing at L5-S1. Spondylolisthesis measures 1.0 cm. 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 Impression: 1. Findings as noted above. Nothing acute is seen on CT study of the abdomen and pelvis. Diagnostic code #3 This report was dictated in MDT
[2020-07-30 20:24] VITALS: BP 108/72
== END 2020-07-30 19:45 ==
LOC: JD.ED 14:57
DX: I26.09 Other pulmonary embolism with acute cor pulmonale (principal); I10 Essential (primary) hypertension; M19.90 Unspecified osteoarthritis, unspecified site; F41.9 Anxiety disorder, unspecified; F32.9 Major depressive disorder, single episode, unspecified; E66.9 Obesity, unspecified; Z79.899 Other long term (current) drug therapy; Z88.2 Allergy status to sulfonamides; Z20.828 Contact with and (suspected) exposure to other viral communicable diseases; Z68.37 Body mass index [BMI] 37.0-37.9, adult
CPT/HCPCS: 36415; 71045; 71275; 74177; 80053; 81001; 82728; 83605; 83615; 83880; 84484; 85025; 85379; 85610; 85730; 86140; 87040; 87635; 93005; 96365; 96366; 99285; J1644; J7030; 93010; U0002

== ENCOUNTER 2020-08-12 09:29 | Emergency (ER) | payer BC ==
[2020-08-12 09:39] VITALS: BP 132/76; PULSE 96
[2020-08-12] MEDS ORDERED: Ondansetron 4 MG/2 ML SDV IVPUSH ONE (09:48)
[2020-08-12] MEDS ORDERED: Sodium Chloride 0.9% 10 ML Syringe FLUSH PRN (09:48)
[2020-08-12] MEDS ORDERED: Sodium Chloride 0.9% 1,000 ML IV SCH (10:00)
--- NOTE | 2020-08-12 10:19 | CR ---
Chest: Portable view of the chest was obtained. Comparison: Prior CT chest of 07/30/20 and chest x-ray of 07/30/20. Heart size and mediastinum are within normal limits. Lungs are clear with no acute parenchymal change. Prior lower cervical spine surgery is noted. Impression: 1. Nothing acute is appreciated on portable chest x-ray. Diagnostic code #2 This report was dictated in MDT
--- NOTE | 2020-08-12 11:05 | EDM.PDOC ---
ED HPI GENERAL MEDICAL PROBLEM - General Chief Complaint: Cardiovascular Problem Stated Complaint: HEART CONCERNS Time Seen by Provider: 08/12/20 09:35 Source of Information: Reports: Patient, Provider History Limitations: Reports: No Limitations - History of Present Illness INITIAL COMMENTS - FREE TEXT/NARRATIVE: The patient presents from [facility] for nausea and not feeling well. She was sent to [facility] in [place] on the with extensive bilateral PEs and right heart strain. She needed thrombectomy. She went into cardiac arrest on the interventional radiology table and she was resuscitated. She was discharged on the . She had a follow up appointment last week and she was doing okay. She started not feeling well last night with nausea but no vomiting. She feels "burpy." She has no diarrhea. She has no real pain in her abdomen. She has no chest pain or shortness of breath. She has no dysuria. She has a history of DVT and she was on eliquis. She was able to come off of the eliquis a few weeks ago. An EKG was done at the clinic and she had some T wave changes in the anterior leads. She was sent here for further work up. She does not have a gallbladder or appendix. Onset: Gradual Duration: Day(s): (last night) Severity: Mild Improves with: Reports: None Worsens with: Reports: None Associated Symptoms: Reports: Nausea/Vomiting. Denies: Chest Pain, Cough, Fever/Chills, Headaches, Shortness of Breath - Related Data Allergies Allergy/AdvReac Type Severity Reaction Status Date / Time Sulfa (Sulfonamide Allergy Itching Verified 08/12/20 09:39 Antibiotics) Home Meds: Home Meds DULoxetine [Cymbalta] 60 mg PO DAILY 03/16/14 [History] Metoprolol Succinate [Toprol XL] 50 mg PO DAILY 03/16/14 [History] Cholecalciferol (Vitamin D3) [Vitamin D] 5,000 unit PO DAILY 03/27/16 [History] hydroCHLOROthiazide [Hydrochlorothiazide] 12.5 mg PO DAILY 03/27/16 [History] Gabapentin [Neurontin] 100 mg PO BEDTIME 04/11/19 [History] Ondansetron [Zofran ODT] 4 mg PO Q6H PRN #20 tab.dis 02/02/20 [Rx] Amitriptyline [Elavil] 0 mg PO BEDTIME PRN 07/30/20 [History] Apixaban [Eliquis] 0 mg PO BID 08/12/20 [History] cephALEXin [Keflex] 500 mg PO BID #10 capsule 08/12/20 [Rx] Past Medical History HEENT History: Reports: Impaired Vision Other HEENT History: wears glasses Cardiovascular History: Reports: Arrhythmia, High Cholesterol, Hypertension Other Cardiovascular History: SVT with successful ablation in 2008. 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: Musculoskeletal History: Reports: Osteoarthritis Other Musculoskeletal History: polyarthralgia, hypermobile joints, trochanertic bursitis of bilateral hips, pes anserinus bilateral knees, IT band syndrome Psychiatric History: Reports: Anxiety, Depression Other Psychiatric History: fatigue Endocrine/Metabolic History: Reports: Obesity/BMI 30+, Vitamin D Deficiency Other Endocrine/Metabolic History: pituitary microadenoma with HCC Hematologic History: Reports: Other (See Below) Other Hematologic History: HLA B27 POSITIVE Immunologic History: Reports: None Oncologic (Cancer) History: Reports: None Dermatologic History: Reports: None - Infectious Disease History Infectious Disease History: Reports: None - Past Surgical History HEENT Surgical History: Reports: Oral Surgery Cardiovascular Surgical History: Reports: Cardiac Ablation Respiratory Surgical History: Reports: Other (See Below) Other Respiratory Surgeries/Procedures: clot removal from lung GI Surgical History: Reports: Appendectomy, Cholecystectomy, Hernia, Inguinal Female Surgical History: Reports: Hysterectomy Neurological Surgical History: Reports: C-Spine Musculoskeletal Surgical History: Reports: Knee Replacement, Other (See Below) Other Musculoskeletal Surgeries/Procedures:: reports cervical surgery Oncologic Surgical History: Reports: None Dermatological Surgical History: Reports: None Social & Family History - Family History Family Medical History: Noncontributory - Tobacco Use Smoking Status *Q: Never Smoker - Caffeine Use Caffeine Use: Reports: Coffee Other Caffeine Use: cup coffee/day - Living Situation & Occupation Living situation: Reports: , with Spouse 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 Denies: Abdominal Pain, Diarrhea, Vomiting : Reports: No Symptoms Musculoskeletal: Reports: No Symptoms Skin: Reports: No Symptoms ED EXAM, GENERAL - Physical Exam Exam: See Below Exam Limited By: No Limitations General Appearance: Alert, No Apparent Distress Ears: Normal External Exam Nose: Normal Inspection Head: Atraumatic, Normocephalic Neck: Normal Inspection Respiratory/Chest: No Respiratory Distress, Lungs Clear, Normal Breath Sounds Cardiovascular: Regular Rate, Rhythm, No Edema, No Murmur GI/Abdominal: Soft, Non-Tender, No Organomegaly, No Mass Back Exam: Normal Inspection Extremities: Normal Inspection EKG INTERPRETATION EKG Date: 08/12/20 Time: 09:47 Rhythm: NSR Rate (Beats/Min): 97 [place]: Normal P-Wave: Present QRS: Normal ST-T: Other (Flipped T waves in the anterior leads) QT: Prolonged EKG Interpretation Comments: Q waves in the inferior leads Course - Vital Signs Last Recorded V/S: Last Vital Signs Temp 98.5 F 08/12/20 09:35 Pulse 96 08/12/20 09:35 Resp 18 08/12/20 09:35 BP 132/76 08/12/20 09:35 Pulse Ox 95 08/12/20 10:55 - Orders/Labs/Meds Orders: Active Orders 24 hr Category Date Time Status Cardiac Monitoring [RC] . DIRECTED Care 08/12/20 09:48 Active EKG Documentation Completion [RC] STAT Care 08/12/20 09:49 Active Oxygen Therapy [RC] PRN Care 08/12/20 09:48 Active Peripheral IV Care [RC] . DIRECTED Care 08/12/20 09:48 Active TROPONIN I [CHEM] Stat Lab 08/12/20 12:35 Received UA W/MICROSCOPIC [URIN] Stat Lab 08/12/20 12:09 Results Sodium Chloride 0.9% [Normal Saline] 1,000 ml Med 08/12/20 10:00 Active IV .BOLUS Sodium Chloride 0.9% [Saline Flush] Med 08/12/20 09:48 Active 10 ml FLUSH ASDIRECTED PRN ED Antiemetic Medication Reflex [OM.PC] Stat Oth 08/12/20 09:49 Ordered Peripheral IV Insertion Adult [OM.PC] Stat Oth 08/12/20 09:48 Ordered Medication Orders Sodium Chloride (Normal Saline) 1,000 mls @ 1,000 mls/hr IV .BOLUS CAREY Last Admin: 08/12/20 10:07 Dose: 1,000 mls/hr Documented by: MARLON Sodium Chloride (Saline Flush) 10 ml FLUSH ASDIRECTED PRN PRN Reason: Keep Vein Open Last Admin: 08/12/20 10:10 Dose: 10 ml Documented by: MARLON Labs: Laboratory Tests 08/12/20 08/12/20 08/12/20 Range/Units 10:01 10:01 12:09 WBC 6.65 (3.98-10.04) K/mm3 RBC 4.93 (3.98-5.22) M/mm3 Hgb 14.2 D (11.2-15.7) gm/dl Hct 43.6 (34.1-44.9) % MCV 88.4 (79.4-94.8) fl MCH 28.8 (25.6-32.2) pg MCHC 32.6 (32.2-35.5) g/dl RDW Std Deviation 45.8 (36.4-46.3) fL Plt Count 316 (182-369) K/mm3 MPV 10.0 (9.4-12.3) fl Neut % (Auto) 76.5 H (34.0-71.1) % Lymph % (Auto) 16.2 L (19.3-51.7) % [place] % (Auto) 6.5 (4.7-12.5) % Eos % (Auto) 0 L (0.7-5.8) Baso % (Auto) 0.3 (0.1-1.2) % Neut # (Auto) 5.09 (1.56-6.13) K/mm3 Lymph # (Auto) 1.08 L (1.18-3.74) K/mm3 [place] # (Auto) 0.43 H (0.24-0.36) K/mm3 Eos # (Auto) 0.00 L (0.04-0.36) K/mm3 Baso # (Auto) 0.02 (0.01-0.08) K/mm3 Manual Slide Review Normal smear Sodium 136 (136-145) mEq/L Potassium 4.0 (3.5-5.1) mEq/L Chloride 98 (98-107) mEq/L Carbon Dioxide 31 (21-32) mEq/L Anion Gap 11.0 (5-15) BUN 13 (7-18) mg/dL Creatinine 1.0 (0.55-1.02) mg/dL Est Cr Clr Drug Dosing 56.18 mL/min Estimated GFR (MDRD) 58 (>60) mL/min BUN/Creatinine Ratio 13.0 L (14-18) Glucose 130 H (74-106) mg/dL Calcium 8.9 (8.5-10.1) mg/dL Total Bilirubin 0.7 (0.2-1.0) mg/dL AST 44 H (15-37) U/L ALT 81 H (14-59) U/L Alkaline Phosphatase 113 (46-116) U/L Troponin I < 0.017 (0.00-0.056) ng/mL Total Protein 7.4 (6.4-8.2) g/dl Albumin 3.7 (3.4-5.0) g/dl Globulin 3.7 gm/dL Albumin/Globulin Ratio 1.0 (1-2) Lipase 143 (73-393) U/L Urine Color Yellow (Yellow) Urine Appearance Clear (Clear) Urine pH 6.5 (5.0-8.0) Ur Specific [place] 1.015 (1.005-1.030) Urine Protein Negative (Negative) Urine Glucose (UA) Negative (Negative) Urine Ketones Negative (Negative) Urine Occult Blood Negative (Negative) Urine Nitrite Positive H (Negative) Urine Bilirubin Negative (Negative) Urine Urobilinogen 0.2 (0.2-1.0) Ur Leukocyte Esterase 1+ H (Negative) Meds: Medications Generic Name Dose Route Start Last Admin Trade Name Freq PRN Reason Stop Dose Admin Sodium Chloride 1,000 mls @ 1,000 mls/hr 08/12/20 10:00 08/12/20 10:07 Normal Saline IV 1,000 mls/hr .BOLUS CAREY Administration Sodium Chloride 10 ml 08/12/20 09:48 08/12/20 10:10 Saline Flush FLUSH 10 ml ASDIRECTED PRN Administration Keep Vein Open Discontinued Medications Generic Name Dose Route Start Last Admin Trade Name Freq PRN Reason Stop Dose Admin Ondansetron HCl 4 mg 08/12/20 09:48 08/12/20 10:07 Zofran IVPUSH 08/12/20 09:49 4 mg ONETIME ONE Administration - Re-Assessments/Exams Free Text/Narrative Re-Assessment/Exam: 08/12/20 11:08 I ordered an IV saline lock, EKG, CXR, labs, UA and zofran. 08/12/20 11:08 The patient has been checked for COVID 19 4 times in the past few weeks and she has been negative every time. She was checked again at the clinic and she does not want to be checked again today. 08/12/20 12:42 Her CBC and CMP look good. Her UA shows a UTI. Her troponin is negative. I called [facility] in [place] and talked with Dr Mendez the benzene worker technical illustrations map inker and he said the T wave changes were seen in the past and he was not concerned about them. I will repeat her troponin and get her on some keflex. Departure - Departure Time of Disposition: 12:45 Disposition: Home, Self-Care 01 Condition: Good Clinical Impression: UTI (urinary tract infection) Qualifiers: Urinary tract infection type: acute cystitis Hematuria presence: without hematuria Qualified Code(s): N30.00 - Acute cystitis without hematuria Prescriptions: cephALEXin [Keflex] 500 mg PO BID #10 capsule Referrals: Yandy Michael PA-C [Primary Care Provider] - 1 Week Forms: ED Department Discharge Additional Instructions: Drink plenty of fluids. Take keflex 2 times per day for 5 days. Take your medications as prescribed. Please return if you are worse. Sepsis Event Note (ED) - Evaluation Sepsis Screening Result: No Definite Risk - Focused Exam Vital Signs: Vital Signs Temp Pulse Resp BP Pulse Ox Pulse Ox 08/12/20 10:55 95 08/12/20 09:35 98.5 F 96 18 132/76 96 - My Orders Last 24 Hours: My Active Orders 08/12/20 09:48 Cardiac Monitoring [RC] . DIRECTED Oxygen Therapy [RC] PRN Peripheral IV Care [RC] . DIRECTED Sodium Chloride 0.9% [Saline Flush] 10 ml FLUSH ASDIRECTED PRN Peripheral IV Insertion Adult [OM.PC] Stat 08/12/20 09:49 EKG Documentation Completion [RC] STAT ED Antiemetic Medication Reflex [OM.PC] Stat 08/12/20 10:00 Sodium Chloride 0.9% [Normal Saline] 1,000 ml IV .BOLUS 08/12/20 12:09 UA W/MICROSCOPIC [URIN] Stat 08/12/20 12:35 TROPONIN I [CHEM] Stat - Assessment/Plan Last 24 Hours: My Active Orders 08/12/20 09:48 Cardiac Monitoring [RC] . DIRECTED Oxygen Therapy [RC] PRN Peripheral IV Care [RC] . DIRECTED Sodium Chloride 0.9% [Saline Flush] 10 ml FLUSH ASDIRECTED PRN Peripheral IV Insertion Adult [OM.PC] Stat 08/12/20 09:49 EKG Documentation Completion [RC] STAT ED Antiemetic Medication Reflex [OM.PC] Stat 08/12/20 10:00 Sodium Chloride 0.9% [Normal Saline] 1,000 ml IV .BOLUS 08/12/20 12:09 UA W/MICROSCOPIC [URIN] Stat 08/12/20 12:35 TROPONIN I [CHEM] Stat
== END 2020-08-12 12:55 | disposition home or self-care (01) ==
LOC: JD.ED 09:29
DX: N30.00 Acute cystitis without hematuria (principal); F41.9 Anxiety disorder, unspecified; F32.9 Major depressive disorder, single episode, unspecified; M19.90 Unspecified osteoarthritis, unspecified site; I10 Essential (primary) hypertension; Z79.899 Other long term (current) drug therapy; Z88.2 Allergy status to sulfonamides
CPT/HCPCS: 36415; 71045; 80053; 81001; 83690; 84484; 85025; 93005; 96361; 96374; 99284; J2405; J7030; 93010; 99283

== ENCOUNTER 2020-09-04 22:40 | Emergency (ER) | payer BC ==
[2020-09-04 22:54] VITALS: BP 152/83; PULSE 130
--- NOTE | 2020-09-04 23:21 | EDM.PDOC ---
ED HPI GENERAL MEDICAL PROBLEM - General Chief Complaint: Cardiovascular Problem Stated Complaint: CHEST PAIN Time Seen by Provider: 09/04/20 23:04 Source of Information: Reports: Patient History Limitations: Reports: No Limitations - History of Present Illness INITIAL COMMENTS - FREE TEXT/NARRATIVE: Mrs. Pagan is a very pleasant 55-year-old woman with a past medical history s ignificant for a pulmonary embolus, who now presents with 3 hours of palpitations, chest pressure, nausea, and slight dyspnea. The patient has a history of a DVT many years ago. She was on Eliquis up until late June, when it was discontinued. She was then seen in this ED on 07/30/2020, and diagnosed with a massive pulmonary embolus. She was transferred to [facility], where she underwent a pulmonary thrombectomy. She suffered a cardiac arrest during the procedure, requiring CPR for about 20 minutes. She recovered, and was discharged home on 08/05/2020, back on Eliquis, which she has been taking as prescribed. She now states that she developed rapid, irregular palpitations, along with intermittent retrosternal chest pressure, around 20:00 this evening. When present, the chest pressure lasts only a few seconds, and has occurred about 4-5 times. It resolved just prior to arrival to the ED. She reports having associated nausea and 2 episodes of slight dyspnea. No diaphoresis or sense of impending doom. Of interest, the patient states that, in addition to the pulmonary thrombectomy, she underwent a coronary angiogram on 07/30/2020, which was reportedly clean. Additionally, the patient states that she was diagnosed with COVID-19 on 07/30/2020, however, our records indicate that her swab for the SARS-CoV-2 virus returned negative at that time. Nevertheless, the patient states that she has been off quarantine since 08/22/2020. Here in the ED, the patient's initial BP is found to be modestly elevated at 152/83, with a tachycardia of 130 bpm, although her tachycardia resolved shortly after admission. She is afebrile, saturating 100% on room air. The patient denies having a recent fever, chills, sore throat, ear pain, nasal or sinus congestion, cough, dyspnea, chest pain, palpitations, nausea, vomiting, constipation, diarrhea, abdominal pain, urinary symptoms, recent weight gain or weight loss, recent bloody bowel movements or black bowel movements, recent joint aches, headaches, or rashes. The patient's PCP is KELBY Chawla. Her Orthopedic Surgeon is Dr. Theo Hanley. Her Die Cutting Machine Operator is Dr. Daniel Travis. Chest Pain Score (Numeric/FACES): 3 - Related Data Allergies Allergy/AdvReac Type Severity Reaction Status Date / Time Sulfa (Sulfonamide Allergy Itching Verified 08/12/20 09:39 Antibiotics) Home Meds: Home Meds DULoxetine [Cymbalta] 60 mg PO DAILY 03/16/14 [History] Metoprolol Succinate [Toprol XL] 50 mg PO DAILY 03/16/14 [History] Cholecalciferol (Vitamin D3) [Vitamin D] 5,000 unit PO DAILY 03/27/16 [History] hydroCHLOROthiazide [Hydrochlorothiazide] 12.5 mg PO DAILY 03/27/16 [History] Gabapentin [Neurontin] 100 mg PO BEDTIME 04/11/19 [History] Ondansetron [Zofran ODT] 4 mg PO Q6H PRN #20 tab.dis 02/02/20 [Rx] Amitriptyline [Elavil] 0 mg PO BEDTIME PRN 07/30/20 [History] Apixaban [Eliquis] 0 mg PO BID 08/12/20 [History] cephALEXin [Keflex] 500 mg PO BID #10 capsule 08/12/20 [Rx] Past Medical History HEENT History: Reports: Impaired Vision (wears glasses) Cardiovascular History: Reports: Arrhythmia (SVT, s/p ablation 2008), Blood Clots/VTE/DVT, Hypertension Respiratory History: Reports: PE (07/30/2020) Gastrointestinal History: Reports: Diverticulosis, Other (See Below) (Lymphocytic colitis) Musculoskeletal History: Reports: Osteoarthritis Psychiatric History: Reports: Anxiety, Depression Endocrine/Metabolic History: Reports: Obesity/BMI 30+, Vitamin D Deficiency Hematologic History: Reports: Other (See Below) (Hypercoagulopathy) - Past Surgical History HEENT Surgical History: Reports: Oral Surgery (dental extractions) Cardiovascular Surgical History: Reports: Cardiac Ablation (for SVT 2008), Other (See Below) (Pulmonary thrombectomy 07/30/2020. Coronary angiogram 07/30/2020 -> clean. Reversible IVC filter placed 07/30/2020, due for removal Sep 2020.) GI Surgical History: Reports: Appendectomy, Cholecystectomy (2015), Hernia, Inguinal (right) Female Surgical History: Reports: Hysterectomy (partial) Neurological Surgical History: Reports: C-Spine (C4-C5 ACDF 2004) Musculoskeletal Surgical History: Reports: Knee Replacement (right, 04/12/2019) Social & Family History - Family History Family Medical History: Noncontributory - Tobacco Use Tobacco Use Status *Q: Never Tobacco User - Caffeine Use Caffeine Use: Reports: Coffee Other Caffeine Use: cup coffee/day - Alcohol Use Alcohol Use History: Yes Alcohol Use Frequency: Socially - Recreational Drug Use Recreational Drug Use: No - Living Situation & Occupation Living situation: Reports: , with Spouse 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 ED EXAM, GENERAL - Physical Exam Exam: See Below Exam Limited By: No Limitations General Appearance: Alert, WD/WN, No Apparent Distress Eye Exam: Bilateral Eye: EOMI, Normal Inspection Ears: Normal External Exam, Hearing Grossly Normal Nose: Normal Inspection Throat/Mouth: Normal Inspection, Normal Lips, Normal Voice, No Airway Compromise Head: Atraumatic, Normocephalic Neck: Normal Inspection, Full Range of Motion Respiratory/Chest: No Respiratory Distress, Lungs Clear, Normal Breath Sounds, No Accessory Muscle Use Cardiovascular: Normal Peripheral Pulses, Regular Rate, Rhythm, No Edema, No Gallop, No JVD, No Murmur, No Rub Peripheral Pulses: 3+: Radial (L), Radial (R) GI/Abdominal: Normal Bowel Sounds, Soft, Non-Tender, No Organomegaly, No Distention, No Abnormal Bruit, No Mass Back Exam: Normal Inspection, Full Range of Motion, NT Extremities: Normal Inspection, Normal Range of Motion, No Pedal Edema, Normal Capillary Refill Neurological: Alert, Oriented, Normal Cognition, No Motor/Sensory Deficits Psychiatric: Normal Affect Skin Exam: Warm, Dry, Intact, Normal Color, No Rash #1 Interpretation EKG Date: 09/04/20 Time: 22:57 Rhythm: NSR Rate (Beats/Min): 97 [place]: Normal P-Wave: Present QRS: Normal ST-T: Normal QT: Normal Comparison: Change From Previous EKG (QTc was prolonged 08/12/2020) Course - Vital Signs Last Recorded V/S: Last Vital Signs Temp 36.2 C 09/04/20 22:50 Pulse 130 H 09/04/20 22:50 Resp 16 09/04/20 22:50 BP 152/83 H 09/04/20 22:50 Pulse Ox 100 09/04/20 22:50 - Orders/Labs/Meds Orders: Active Orders 24 hr Category Date Time Status EKG 12 Lead [EK] Stat Ther 09/04/20 23:04 Ordered Labs: Laboratory Tests 09/04/20 09/04/20 Range/Units 23:12 23:12 WBC 6.25 (3.98-10.04) K/mm3 RBC 4.54 (3.98-5.22) M/mm3 Hgb 13.1 (11.2-15.7) gm/dl Hct 40.3 (34.1-44.9) % MCV 88.8 (79.4-94.8) fl MCH 28.9 (25.6-32.2) pg MCHC 32.5 (32.2-35.5) g/dl RDW Std Deviation 46.9 H (36.4-46.3) fL Plt Count 271 (182-369) K/mm3 MPV 10.0 (9.4-12.3) fl Neutrophils % (Manual) 38 L (40-60) % Band Neutrophils % 0 (0-10) % Lymphocytes % (Manual) 53 H (20-40) % Atypical Lymphs % 0 % Monocytes % (Manual) 7 (2-10) % Eosinophils % (Manual) 1 (0.7-5.8) % Basophils % (Manual) 1 (0.1-1.2) Platelet Estimate Adequate Plt Morphology Comment Normal RBC Morph Comment Normal Sodium 143 (136-145) mEq/L Potassium 3.3 L (3.5-5.1) mEq/L Chloride 104 (98-107) mEq/L Carbon Dioxide 28 (21-32) mEq/L Anion Gap 14.3 (5-15) BUN 16 (7-18) mg/dL Creatinine 1.0 (0.55-1.02) mg/dL Est Cr Clr Drug Dosing TNP Estimated GFR (MDRD) 58 (>60) mL/min BUN/Creatinine Ratio 16.0 (14-18) Glucose 122 H (74-106) mg/dL Calcium 9.7 (8.5-10.1) mg/dL Magnesium 1.8 (1.8-2.4) mg/dl Total Bilirubin 0.5 (0.2-1.0) mg/dL AST 24 (15-37) U/L ALT 76 H (14-59) U/L Alkaline Phosphatase 88 (46-116) U/L Troponin I < 0.017 (0.00-0.056) ng/mL Total Protein 7.0 (6.4-8.2) g/dl Albumin 3.6 (3.4-5.0) g/dl Globulin 3.4 gm/dL Albumin/Globulin Ratio 1.1 (1-2) - Re-Assessments/Exams Free Text/Narrative Re-Assessment/Exam: 09/04/20 23:17 As above, the patient, who has a history of DVTs and a PE requiring thrombectomy, with cardiac arrest during the procedure on 07/30/2020, now on Eliquis, presents with intermittent rapid, irregular palpitations that began about 3 hours ago, along with brief intermittent retrosternal chest discomfort, slight dyspnea, and anxiety, that also began a few hours ago, but resolved prior to arrival to the ED. Here in the ED, the patient was initially tachycardic, although her heart rate has since settled down, and her physical exam is otherwise unremarkable. An ECG obtained at triage demonstrates a normal sinus rhythm with no ectopy. I have ordered blood work, however, there is no point in ordering a repeat CT angiogram of the chest, because we do not know what degree of clot burden she had following her thrombectomy on 07/30/2020, and, even if a PE is demonstrated, which it likely would, the patient is already being treated with Eliquis. This was explained to the patient, who expressed good understanding. 09/05/20 00:30 Test results discussed with the patient. She states that she has continued to feel palpitations. Checking the pvc monitor, the patient has had some sinus tachycardia, but no dysrhythmias. Her CBC is unremarkable. Her CMP is remarkable for potassium slightly depressed at 3.3, and a blood glucose slightly elevated at 122, with the remainder of her CMP being unremarkable. Her magnesium level is within normal limits at 1.8. Her troponin is undetectably low. Based on the above, I believe we can safely discharge the patient home. If she continues to have palpitations, I am recommending that she follow-up with her PCP to arrange for either Holter monitor or an event monitor. Departure - Departure Time of Disposition: 00:32 Disposition: Home, Self-Care 01 Condition: Good Clinical Impression: Palpitations, Chest pressure, Nausea Instructions: Nonspecific Chest Pain, Adult, [id number], Palpitations, [id number], Nausea, Adult, [id number] Referrals: Yandy Michael PA-C [Primary Care Provider] - Theo Hanley MD [Physician] - Daniel Travis MD [Ordering Only Provider] - Forms: ED Department Discharge Additional Instructions: You were seen in the emergency room after developing fast, irregular palpitations, with intermittent chest pressure, nausea, and slight shortness of breath. Work-up in the ER included blood work and an ECG. Your entire work-up was unremarkable. You have not suffered a heart attack. No significant electrolyte abnormalities were found. You are not anemic. Your pvc monitor showed episodes of an elevated heart rate, but no abnormal rhythms. We recommend that if your palpitations persist, that you follow-up with your PCP, KELBY Chawla, to arrange for either a Holter monitor or an event monitor. If any other problems, please do not hesitate to return to the ER. Sepsis Event Note (ED) - Evaluation Sepsis Screening Result: No Definite Risk - Focused Exam Vital Signs: Vital Signs Temp Pulse Resp BP Pulse Ox 09/04/20 22:50 36.2 C 130 H 16 152/83 H 100 - My Orders Last 24 Hours: My Active Orders 09/04/20 23:04 EKG 12 Lead [EK] Stat - Assessment/Plan Last 24 Hours: My Active Orders 09/04/20 23:04 EKG 12 Lead [EK] Stat
== END 2020-09-05 00:59 | disposition home or self-care (01) ==
LOC: JD.ED 22:40
DX: R00.2 Palpitations (principal); R07.89 Other chest pain; R11.0 Nausea; R06.00 Dyspnea, unspecified; I10 Essential (primary) hypertension; F41.9 Anxiety disorder, unspecified; F32.9 Major depressive disorder, single episode, unspecified; E66.9 Obesity, unspecified; Z79.01 Long term (current) use of anticoagulants; Z88.2 Allergy status to sulfonamides; Z79.899 Other long term (current) drug therapy; Z90.49 Acquired absence of other specified parts of digestive tract; Z90.710 Acquired absence of both cervix and uterus; Z86.711 Personal history of pulmonary embolism
CPT/HCPCS: 36415; 80053; 83735; 84484; 85007; 85027; 93005; 93010; 99283; 99285-25

== ENCOUNTER 2021-01-22 11:04 | Emergency (ER) | payer BC ==
[2021-01-22 11:18] VITALS: BP 149/90; PULSE 87
[2021-01-22] MEDS ORDERED: Sodium Chloride 0.9% 10 ML Syringe FLUSH PRN (11:19)
--- NOTE | 2021-01-22 11:50 | EDM.PDOC ---
ED HPI GENERAL MEDICAL PROBLEM - General Chief Complaint: Chest Pain Stated Complaint: CHEST PAIN/SOB Time Seen by Provider: 01/22/21 11:12 Source of Information: Reports: Patient, RN Notes Reviewed History Limitations: Reports: No Limitations - History of Present Illness INITIAL COMMENTS - FREE TEXT/NARRATIVE: Patient is a 55-year-old female presenting to the emergency department with complaints of "not feeling right". He states over the weekend, she had some bilateral lower extremity pain which she figured was related to her fibromyalgia. Last night, she had an episode of chest pain which self resolved. She did not sleep well last night and then today while at work, she was having episodes of diaphoresis as well as some shortness of breath. She had some mild chest pain on the way to ER, however this has resolved. Patient has a history of PE in July 2020 requiring thrombectomy during when she did go into cardiac arrest and underwent 20 minutes of CPR. 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 She had an angiogram completed in July of last year which showed no blockages. Patient also verbalized that she has a history of SVT requiring ablation. She did state at one point it felt like her heart was going faster than normal, however she did not have a blood pressure machine to check her vital signs. At the current time, she denies any chest pain, shortness of breath, dizziness, or diaphoresis. She is currently taking Eliquis and states that she has been taking it faithfully and has not missed any doses. - Related Data Allergies Allergy/AdvReac Type Severity Reaction Status Date / Time Sulfa (Sulfonamide Allergy Itching Verified 08/12/20 09:39 Antibiotics) Home Meds: Home Meds DULoxetine [Cymbalta] 60 mg PO DAILY 03/16/14 [History] Metoprolol Succinate [Toprol XL] 50 mg PO DAILY 03/16/14 [History] Cholecalciferol (Vitamin D3) [Vitamin D] 5,000 unit PO DAILY 03/27/16 [History] hydroCHLOROthiazide [Hydrochlorothiazide] 12.5 mg PO DAILY 03/27/16 [History] Gabapentin [Neurontin] 100 mg PO BEDTIME 04/11/19 [History] Ondansetron [Zofran ODT] 4 mg PO Q6H PRN #20 tab.dis 02/02/20 [Rx] Amitriptyline [Elavil] 0 mg PO BEDTIME PRN 07/30/20 [History] Apixaban [Eliquis] 0 mg PO BID 08/12/20 [History] cephALEXin [Keflex] 500 mg PO BID #10 capsule 08/12/20 [Rx] Past Medical History HEENT History: Reports: Impaired Vision Other HEENT History: wears glasses Cardiovascular History: Reports: Arrhythmia, Blood Clots/VTE/DVT, Hypertension Other Cardiovascular History: SVT with successful ablation in 2008. pt had CPR with PE clot removal from lung Respiratory History: Reports: PE Gastrointestinal History: Reports: Diverticulosis, Other (See Below) Other Gastrointestinal History: diverticula Genitourinary History: Reports: Pyelonephritis, UTI, Recurrent [employer]OR[employer] OPERATOR History: Reports: Musculoskeletal History: Reports: Osteoarthritis Other Musculoskeletal History: polyarthralgia, hypermobile joints, trochanertic bursitis of bilateral hips, pes anserinus bilateral knees, IT band syndrome Psychiatric History: Reports: Anxiety, Depression Other Psychiatric History: fatigue Endocrine/Metabolic History: Reports: Obesity/BMI 30+, Vitamin D Deficiency Other Endocrine/Metabolic History: pituitary microadenoma with HCC Hematologic History: Reports: Other (See Below) Other Hematologic History: HLA B27 POSITIVE Immunologic History: Reports: None Oncologic (Cancer) History: Reports: None Dermatologic History: Reports: None - Infectious Disease History Infectious Disease History: Reports: Novel Coronavirus - Past Surgical History Head Surgeries/Procedures: Reports: None HEENT Surgical History: Reports: Oral Surgery Cardiovascular Surgical History: Reports: Cardiac Ablation Respiratory Surgical History: Reports: Other (See Below) Other Respiratory Surgeries/Procedures: clot removal from lung GI Surgical History: Reports: Appendectomy, Cholecystectomy, Hernia, Inguinal Female Surgical History: Reports: Hysterectomy Neurological Surgical History: Reports: C-Spine Other Neurological Surgeries/Procedures: C5 fusion in 2004 Musculoskeletal Surgical History: Reports: Knee Replacement Other Musculoskeletal Surgeries/Procedures:: reports cervical surgery Oncologic Surgical History: Reports: None Dermatological Surgical History: Reports: None Social & Family History - Family History Family Medical History: No Pertinent Family History - Tobacco Use Tobacco Use Status *Q: Never Tobacco User - Caffeine Use Caffeine Use: Reports: Coffee Other Caffeine Use: cup coffee/day - Living Situation & Occupation Living situation: Reports: , with Spouse 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 Denies: Fever, Chills, Weakness HEENT: Reports: No Symptoms Respiratory: Reports: Shortness of Breath. Denies: Cough Cardiovascular: Reports: Chest Pain, Palpitations. Denies: Dyspnea on Exertion, Lightheadedness, Syncope Endocrine: Reports: No Symptoms GI/Abdominal: Reports: No Symptoms : Reports: No Symptoms Musculoskeletal: Reports: No Symptoms Skin: Reports: No Symptoms Neurological: Reports: No Symptoms Psychiatric: Reports: No Symptoms Hematologic/Lymphatic: Reports: No Symptoms Immunologic: Reports: No Symptoms ED EXAM, GENERAL - Physical Exam Exam: See Below Exam Limited By: No Limitations General Appearance: Alert, WD/WN, No Apparent Distress Respiratory/Chest: No Respiratory Distress, Lungs Clear, Normal Breath Sounds, No Accessory Muscle Use, Chest Non-Tender Cardiovascular: Normal Peripheral Pulses, Regular Rate, Rhythm, No Edema, No Gallop, No JVD, No Murmur, No Rub GI/Abdominal: Normal Bowel Sounds, Soft, Non-Tender, No Organomegaly, No Distention, No Abnormal Bruit, No Mass Extremities: Normal Inspection, Normal Range of Motion, Non-Tender, Normal Capillary Refill, No Pedal Edema Neurological: Alert, Oriented, CN II-XII Intact, Normal Cognition, Normal Gait, Normal Reflexes, No Motor/Sensory Deficits Psychiatric: Normal Affect, Normal Mood #1 Interpretation EKG Date: 01/22/21 Time: 11:14 Rhythm: NSR Rate (Beats/Min): 86 [place]: LAD-Left [place] Deviation P-Wave: Present QRS: Normal ST-T: Normal QT: Normal Course - Vital Signs Last Recorded V/S: Last Vital Signs Temp 97.8 F 01/22/21 11:13 Pulse 87 01/22/21 11:13 Resp 16 01/22/21 11:13 BP 149/90 H 01/22/21 11:13 Pulse Ox 95 01/22/21 11:13 - Orders/Labs/Meds Labs: Laboratory Tests 01/22/21 01/22/21 01/22/21 Range/Units 11:41 11:41 11:41 WBC 6.48 (3.98-10.04) K/mm3 RBC 5.33 H (3.98-5.22) M/mm3 Hgb 15.8 H D (11.2-15.7) gm/dl Hct 47.1 H (34.1-44.9) % MCV 88.4 (79.4-94.8) fl MCH 29.6 (25.6-32.2) pg MCHC 33.5 (32.2-35.5) g/dl RDW Std Deviation 44.3 (36.4-46.3) fL Plt Count 325 (182-369) K/mm3 MPV 10.1 (9.4-12.3) fl Neut % (Auto) 52.4 (34.0-71.1) % Lymph % (Auto) 38.7 (19.3-51.7) % O'Brien % (Auto) 7.4 (4.7-12.5) % Eos % (Auto) 0.9 (0.7-5.8) Baso % (Auto) 0.3 (0.1-1.2) % Neut # (Auto) 3.39 (1.56-6.13) K/mm3 Lymph # (Auto) 2.51 (1.18-3.74) K/mm3 O'Brien # (Auto) 0.48 H (0.24-0.36) K/mm3 Eos # (Auto) 0.06 (0.04-0.36) K/mm3 Baso # (Auto) 0.02 (0.01-0.08) K/mm3 D-Dimer, Quantitative < 0.19 L (0.19-0.50) mg/L Sodium 143 (136-145) mEq/L Potassium 4.2 (3.5-5.1) mEq/L Chloride 104 (98-107) mEq/L Carbon Dioxide 27 (21-32) mEq/L Anion Gap 16.2 H (5-15) BUN 20 H (7-18) mg/dL Creatinine 1.0 (0.55-1.02) mg/dL Est Cr Clr Drug Dosing 56.18 mL/min Estimated GFR (MDRD) 58 (>60) mL/min BUN/Creatinine Ratio 20.0 H (14-18) Glucose 111 H (74-106) mg/dL Calcium 9.7 (8.5-10.1) mg/dL Magnesium (1.8-2.4) mg/dl Total Bilirubin 0.5 (0.2-1.0) mg/dL AST 16 (15-37) U/L ALT 28 (14-59) U/L Alkaline Phosphatase 91 (46-116) U/L Troponin I < 0.017 (0.00-0.056) ng/mL C-Reactive Protein 0.8 (<1.0) mg/dL Total Protein 7.8 (6.4-8.2) g/dl Albumin 4.0 (3.4-5.0) g/dl Globulin 3.8 gm/dL Albumin/Globulin Ratio 1.1 (1-2) 01/22/21 Range/Units 11:41 WBC (3.98-10.04) K/mm3 RBC (3.98-5.22) M/mm3 Hgb (11.2-15.7) gm/dl Hct (34.1-44.9) % MCV (79.4-94.8) fl MCH (25.6-32.2) pg MCHC (32.2-35.5) g/dl RDW Std Deviation (36.4-46.3) fL Plt Count (182-369) K/mm3 MPV (9.4-12.3) fl Neut % (Auto) (34.0-71.1) % Lymph % (Auto) (19.3-51.7) % O'Brien % (Auto) (4.7-12.5) % Eos % (Auto) (0.7-5.8) Baso % (Auto) (0.1-1.2) % Neut # (Auto) (1.56-6.13) K/mm3 Lymph # (Auto) (1.18-3.74) K/mm3 O'Brien # (Auto) (0.24-0.36) K/mm3 Eos # (Auto) (0.04-0.36) K/mm3 Baso # (Auto) (0.01-0.08) K/mm3 D-Dimer, Quantitative (0.19-0.50) mg/L Sodium (136-145) mEq/L Potassium (3.5-5.1) mEq/L Chloride (98-107) mEq/L Carbon Dioxide (21-32) mEq/L Anion Gap (5-15) BUN (7-18) mg/dL Creatinine (0.55-1.02) mg/dL Est Cr Clr Drug Dosing mL/min Estimated GFR (MDRD) (>60) mL/min BUN/Creatinine Ratio (14-18) Glucose (74-106) mg/dL Calcium (8.5-10.1) mg/dL Magnesium 2.1 (1.8-2.4) mg/dl Total Bilirubin (0.2-1.0) mg/dL AST (15-37) U/L ALT (14-59) U/L Alkaline Phosphatase (46-116) U/L Troponin I (0.00-0.056) ng/mL C-Reactive Protein (<1.0) mg/dL Total Protein (6.4-8.2) g/dl Albumin (3.4-5.0) g/dl Globulin gm/dL Albumin/Globulin Ratio (1-2) - Re-Assessments/Exams Free Text/Narrative Re-Assessment/Exam: Patient is a 55-year-old female presenting to the emergency department with complaints of "not feeling". She states is weekend, she had some lower extremity pain which she attributed to her fibromyalgia. Last evening, she had an episode of chest pain which self resolved. Today at work, she had a couple episodes of diaphoresis and shortness of breath. She also had some mild chest pain on the way to ER, however this has resolved. Patient has a history of saddle pulmonary emboli with right heart sided heart strain as well as cardiac arrest during thrombectomy to have this clot removed. She is currently taking Eliquis which she states she has been taking faithfully. She denies any chest pain at the time my exam. Ordered cardiac work-up including CBC, CMP, CRP, troponin, D-dimer, magnesium, EKG, chest x-ray. 01/22/21 12:57 Hematology is grossly unremarkable. D-dimer and troponin are both undetectable. EKG shows no acute ischemia. Chest x-ray is normal. Results discussed with patient. We will send her home with a 48-hour Holter monitor. She thinks she may been overdoing it at work. Recommend follow-up with her primary care provider next week and return to ER as needed. Discharge instructions as documented. Departure - Departure Time of Disposition: 12:57 Disposition: Home, Self-Care 01 Condition: Good Clinical Impression: Atypical chest pain Instructions: Nonspecific Chest Pain, Adult Referrals: Yandy Michael PA-C [Primary Care Provider] - Forms: ED Department Discharge Additional Instructions: You were seen in the emergency department today for intermittent chest pain, palpitations, and shortness of breath. Work-up included blood work, EKG, and chest x-ray. Results of your work-up were found to be normal. You do not have blood clots and you are not having a heart attack. You have been sent home on a 48-hour Holter monitor to monitor your heart's rhythm for the next 2 days. Follow the instructions as given to you by the respiratory therapist. Return this as instructed. Schedule follow-up with your primary care provider for the end of next week to review the results. Return to ER for any new or worsening symptoms of concern. Sepsis Event Note (ED) - Evaluation Sepsis Screening Result: No Definite Risk
--- NOTE | 2021-01-22 12:33 | CR ---
Chest: 2 views of the chest were obtained. Comparison: Previous chest x-ray of 08/12/20. Heart size and mediastinum are normal. Prior cervical spine surgery is seen. Lungs are clear with no acute parenchymal change seen. Bony structures are within normal limits for the patient's age. Impression: 1. Nothing acute is appreciated on 2 view chest x-ray. Diagnostic code #1
== END 2021-01-22 13:10 | disposition home or self-care (01) ==
LOC: JD.ED 11:04
DX: R07.89 Other chest pain (principal); I10 Essential (primary) hypertension; E66.9 Obesity, unspecified; Z86.711 Personal history of pulmonary embolism; Z79.01 Long term (current) use of anticoagulants; Z79.899 Other long term (current) drug therapy
CPT/HCPCS: 36415; 71046; 71046-26; 80053; 83735; 84484; 85025; 85379; 86140; 93005; 93010; 93225; 93226; 99284; 99285-25

== ENCOUNTER 2022-08-29 02:56 | Emergency (ER) | payer BC ==
[2022-08-29] MEDS ORDERED: HYDROmorphone 1 MG/ML Syringe IVPUSH STA (03:33)
[2022-08-29] MEDS ORDERED: Ondansetron 4 MG/2 ML SDV IVPUSH ONE (03:33)
[2022-08-29] MEDS ORDERED: Iopamidol 612 MG/ML 100 ML Bottle IVPUSH ONE (03:43)
[2022-08-29] MEDS ORDERED: Sodium Chloride 0.9% 1,000 ML IV SCH (03:45)
[2022-08-29] MEDS ORDERED: Iopamidol 755 MG/ML 50 ML Bottle IVPUSH ONE (04:16)
[2022-08-29 04:40] LABS: CORONAVIRUS COVID-19 NAA NEGATIVE (NEGATIVE)
[2022-08-29 06:31] VITALS: BP 127/74; PULSE 84
== END 2022-08-29 06:29 | disposition home or self-care (01) ==
LOC: JD.ED 02:56
DX: K57.92 Diverticulitis of intestine, part unspecified, without perforation or abscess without bleeding (principal); I10 Essential (primary) hypertension; E66.9 Obesity, unspecified; Z68.37 Body mass index [BMI] 37.0-37.9, adult; Z88.2 Allergy status to sulfonamides; Z79.899 Other long term (current) drug therapy; Z90.49 Acquired absence of other specified parts of digestive tract; Z86.16 Personal history of COVID-19; Z20.822 Contact with and (suspected) exposure to COVID-19
CPT/HCPCS: 0240U; 36415; 71275; 74177; 80053; 81001; 83690; 83735; 85007; 85027; 96361; 96374; 96375; 99284; J1170; J2405; J7030; Q9967

== ENCOUNTER 2023-01-14 03:24 | Emergency (ER) | payer BC ==
[2023-01-14] MEDS ORDERED: Ondansetron 4 MG/2 ML SDV IVPUSH ONE (04:24)
[2023-01-14] MEDS ORDERED: Sodium Chloride 0.9% 10 ML Syringe FLUSH PRN (04:24)
[2023-01-14] MEDS ORDERED: Sodium Chloride 0.9% 1,000 ML IV SCH (04:30)
[2023-01-14 05:31] LABS: CORONAVIRUS COVID-19 NAA POSITIVE (NEGATIVE)
[2023-01-14] MEDS ORDERED: Ketorolac 30 MG/ML SDV IVPUSH ONE (05:54)
[2023-01-14 06:42] VITALS: BP 135/72; PULSE 69
== END 2023-01-14 06:39 | disposition home or self-care (01) ==
LOC: JD.ED 03:24
DX: U07.1 COVID-19 (principal); E78.00 Pure hypercholesterolemia, unspecified; I10 Essential (primary) hypertension; M19.90 Unspecified osteoarthritis, unspecified site; E66.9 Obesity, unspecified; Z68.41 Body mass index [BMI] 40.0-44.9, adult; Z88.2 Allergy status to sulfonamides; Z79.01 Long term (current) use of anticoagulants; Z79.899 Other long term (current) drug therapy
CPT/HCPCS: 0241U; 36415; 80053; 85025; 96361; 96374; 96375; 99283; J1885; J2405; J3490; J7030; 99284

== ENCOUNTER 2023-01-15 17:10 | Inpatient (IN) | payer BC ==
[2023-01-15] MEDS ORDERED: Sodium Chloride 0.9% 10 ML Syringe FLUSH PRN (18:08)
[2023-01-15] MEDS ORDERED: Ondansetron 4 MG/2 ML SDV IVPUSH ONE (18:08)
[2023-01-15 19:08] LABS: ESTIMATED GFR 87 mL/min (>60)
[2023-01-15] MEDS ORDERED: Sodium Chloride 0.9% 10 ML Syringe FLUSH ONE (19:21)
[2023-01-15] MEDS ORDERED: Iopamidol 755 Mg/ML 100 ML Bottle IVPUSH ONE (19:21)
[2023-01-15] MEDS ORDERED: Sodium Chloride 0.9% 100 ML IV SCH (19:30)
[2023-01-15] MEDS ORDERED: Albuterol/Ipratropium 3.0-0.5 MG/3 ML Neb Soln NEB ONE (21:48)
[2023-01-16] MEDS ORDERED: methylPREDNISolone Sodium Succinate 125 MG/2 ML SDV IVPUSH ONE (00:10)
[2023-01-16] MEDS ORDERED: Apixaban 2.5 MG Tab PO ONE (00:19)
[2023-01-16] MEDS ORDERED: Metoprolol Succinate 50 MG Tab.ER PO ONE (00:22)
[2023-01-16] MEDS ORDERED: Ondansetron 4 MG Tab.DIS PO PRN (03:17)
[2023-01-16] MEDS ORDERED: Acetaminophen 325 MG Tab PO PRN (03:18)
[2023-01-16] MEDS ORDERED: Metoprolol Succinate 50 MG Tab.ER PO SCH (09:00)
[2023-01-16] MEDS ORDERED: Albuterol 0.083% 2.5 MG/3 ML Neb Soln NEB SCH (09:00)
[2023-01-16] MEDS: DULoxetine 30 MG Cap PO SCH (09:10)
[2023-01-16] MEDS: Apixaban 2.5 MG Tab PO SCH ×2 (09:11→21:24)
[2023-01-16] MEDS ORDERED: Albuterol/Ipratropium 3.0-0.5 MG/3 ML Neb Soln NEB PRN (10:10)
[2023-01-16] MEDS ORDERED: Acetaminophen/oxyCODONE 325-5 MG Tab PO PRN (10:14)
[2023-01-16] MEDS ORDERED: hydrALAZINE 20 MG/ML SDV IVPUSH PRN (10:14)
[2023-01-16] MEDS ORDERED: Psyllium Husk Powder Sugar Free 5.85 GM Packet PO PRN (10:14)
[2023-01-16] MEDS ORDERED: Docusate Sodium 100 MG Cap PO PRN (10:14)
[2023-01-16] MEDS: methylPREDNISolone Sodium Succinate 40 MG/1 ML SDV IVPUSH SCH (11:12)
[2023-01-16] MEDS: Azithromycin 250 MG Tab PO SCH (11:12)
[2023-01-16] MEDS: Multivitamins with Iron/Calcium/Folic Acid/Minerals Tab PO SCH (11:13)
[2023-01-16] MEDS ORDERED: Albuterol/Ipratropium 3.0-0.5 MG/3 ML Neb Soln NEB SCH (13:00)
[2023-01-16] MEDS: Albuterol/Ipratropium 3.0-0.5 MG/3 ML Neb Soln NEB SCH ×2 (15:03→20:43)
[2023-01-16] MEDS: atorvaSTATin 40 MG Tab PO SCH (21:24)
[2023-01-16] MEDS: Metoprolol Succinate 50 MG Tab.ER PO SCH (21:25)
[2023-01-17] MEDS: Albuterol/Ipratropium 3.0-0.5 MG/3 ML Neb Soln NEB SCH (06:20)
[2023-01-17] MEDS ORDERED: Metoprolol Succinate 50 MG Tab.ER PO SCH (09:00)
[2023-01-17] MEDS: methylPREDNISolone Sodium Succinate 40 MG/1 ML SDV IVPUSH SCH (09:12)
[2023-01-17] MEDS: Metoprolol Succinate 50 MG Tab.ER PO SCH ×2 (09:12→20:40)
[2023-01-17] MEDS: DULoxetine 30 MG Cap PO SCH (09:13)
[2023-01-17] MEDS: Azithromycin 250 MG Tab PO SCH (09:13)
[2023-01-17] MEDS: Apixaban 2.5 MG Tab PO SCH ×2 (09:14→20:40)
[2023-01-17] MEDS: Multivitamins with Iron/Calcium/Folic Acid/Minerals Tab PO SCH (09:20)
[2023-01-17] MEDS ORDERED: Albuterol 0.083% 2.5 MG/3 ML Neb Soln NEB PRN (09:42)
[2023-01-17] MEDS: Albuterol 0.083% 2.5 MG/3 ML Neb Soln NEB SCH ×3 (10:02→20:21)
[2023-01-17] MEDS ORDERED: Zolpidem 5 MG Tab PO PRN (13:40)
[2023-01-17] MEDS: atorvaSTATin 40 MG Tab PO SCH (20:40)
[2023-01-18] MEDS: Albuterol 0.083% 2.5 MG/3 ML Neb Soln NEB SCH (05:58)
[2023-01-18] MEDS: methylPREDNISolone Sodium Succinate 40 MG/1 ML SDV IVPUSH SCH (08:54)
[2023-01-18] MEDS: DULoxetine 30 MG Cap PO SCH (08:55)
[2023-01-18] MEDS: Azithromycin 250 MG Tab PO SCH (08:55)
[2023-01-18] MEDS: Metoprolol Succinate 50 MG Tab.ER PO SCH (08:55)
[2023-01-18] MEDS: Apixaban 2.5 MG Tab PO SCH (08:55)
[2023-01-18] MEDS: Multivitamins with Iron/Calcium/Folic Acid/Minerals Tab PO SCH (08:56)
[2023-01-18 12:46] VITALS: BP 107/65; PULSE 74
== END 2023-01-18 12:54 | disposition home or self-care (01) | DRG 137 ==
LOC: JD.ED 17:10 → JD.MS 01-16 00:54
PROVIDERS: ADMIT Internal Medicine; ATTEND Internal Medicine
DX: U07.1 COVID-19 (principal); J12.82 Pneumonia due to coronavirus disease 2019; J18.9 Pneumonia, unspecified organism; I82.532 Chronic embolism and thrombosis of left popliteal vein; H54.7 Unspecified visual loss; E78.00 Pure hypercholesterolemia, unspecified; F41.9 Anxiety disorder, unspecified; F32.A Depression, unspecified; E55.9 Vitamin D deficiency, unspecified; M19.90 Unspecified osteoarthritis, unspecified site; K57.90 Diverticulosis of intestine, part unspecified, without perforation or abscess without bleeding; Z96.659 Presence of unspecified artificial knee joint; J96.01 Acute respiratory failure with hypoxia; E66.01 Morbid (severe) obesity due to excess calories; T38.0X5A Adverse effect of glucocorticoids and synthetic analogues, initial encounter; E78.5 Hyperlipidemia, unspecified; I10 Essential (primary) hypertension; D72.829 Elevated white blood cell count, unspecified; Z88.2 Allergy status to sulfonamides; Z79.899 Other long term (current) drug therapy; Z79.01 Long term (current) use of anticoagulants; Z86.16 Personal history of COVID-19; Z90.710 Acquired absence of both cervix and uterus; Z90.49 Acquired absence of other specified parts of digestive tract; Z86.711 Personal history of pulmonary embolism
CPT/HCPCS: 36415; 36600; 71045; 71045-26; 71275; 71275-26; 80048; 80053; 82803; 83605; 83880; 84484; 85025; 86140; 94640; 94667; 94668; 94761; 96374; 96375; 99285; 99285-25; A9270-GY; J2405; J2920; J2930; J3490; J7620-GY; Q9967

== ENCOUNTER 2023-01-20 09:25 | Emergency (ER) | payer BC ==
[2023-01-20 10:09] VITALS: PULSE 74
[2023-01-20 12:36] VITALS: BP 122/88
== END 2023-01-20 12:20 | disposition home or self-care (01) ==
LOC: JD.ED 09:25
DX: U07.1 COVID-19 (principal); E78.00 Pure hypercholesterolemia, unspecified; I10 Essential (primary) hypertension; M19.90 Unspecified osteoarthritis, unspecified site; E66.9 Obesity, unspecified; Z68.39 Body mass index [BMI] 39.0-39.9, adult; Z86.711 Personal history of pulmonary embolism; Z77.22 Contact with and (suspected) exposure to environmental tobacco smoke (acute) (chronic); Z88.2 Allergy status to sulfonamides; Z79.01 Long term (current) use of anticoagulants; Z79.899 Other long term (current) drug therapy
CPT/HCPCS: 71046; 71046-26; 99284

== ENCOUNTER 2023-04-27 05:34 | Emergency (ER) | payer BC ==
[2023-04-27 05:47] VITALS: PULSE 84
[2023-04-27] MEDS ORDERED: Lactated Ringers 1,000 ML IV ONE (06:09)
[2023-04-27] MEDS ORDERED: Lactated Ringers 1,000 ML IV SCH (06:15)
[2023-04-27 06:42] LABS: CORONAVIRUS COVID-19 NAA NEGATIVE (NEGATIVE); INFLUENZA A NAA NEGATIVE (NEGATIVE)
[2023-04-27 06:45] LABS: BASOPHILS ABSOLUTE AUTO 0.01 K/mm3 (0.01-0.08); BASOPHILS PERCENT AUTO 0.1 % (0.1-1.2); EOSINOPHILS ABSOLUTE AUTO 0.04 K/mm3 (0.04-0.36); EOSINOPHILS PERCENT AUTO 0.5 (0.7-5.8); HEMATOCRIT 41.5 % (34.1-44.9); HEMOGLOBIN 14.4 gm/dl (11.2-15.7); IMMATURE GRAN ABSOLUTE AUTO 0.01 K/mm3 (0.00-0.10); IMMATURE GRAN PERCENT AUTO 0.1 % (<=1.0); LYMPHOCYTES ABSOLUTE AUTO 0.83 K/mm3 (1.18-3.74); LYMPHOCYTES PERCENT AUTO 10.3 % (19.3-51.7); MEAN CORPUSCULAR HEMOGLOBIN 30.6 pg (25.6-32.2); MEAN CORPUSCULAR HGB CONC 34.7 g/dl (32.2-35.5); MEAN PLATELET VOLUME 10.2 fl (9.4-12.3); MONOCYTES ABSOLUTE AUTO 0.42 K/mm3 (0.24-0.36); MONOCYTES PERCENT AUTO 5.2 % (4.7-12.5); NEUTROPHILS ABSOLUTE AUTO 6.76 K/mm3 (1.56-6.13); NEUTROPHILS PERCENT AUTO 83.8 % (34.0-71.1); PLATELET COUNT,PLT 244 K/mm3 (182-369); WHITE BLOOD CELL COUNT,WBC 8.07 K/mm3 (3.98-10.04)
[2023-04-27 06:47] LABS: MEAN CORPUSCULAR VOLUME 88.3 fl (79.4-94.8)
[2023-04-27 07:05] LABS: A/G RATIO 1.2 (1-2); ALBUMIN 3.6 g/dl (3.4-5.0); BILIRUBIN TOTAL 0.7 mg/dL (0.2-1.0); CALCIUM 9.3 mg/dL (8.5-10.1); EST CRCL DRUG DOSING (CG) 54.89 mL/min; PROTEIN TOTAL,TP 6.7 g/dl (6.4-8.2)
[2023-04-27 08:43] VITALS: BP 124/78
== END 2023-04-27 08:43 | disposition home or self-care (01) ==
LOC: JD.ED 05:34
DX: B34.9 Viral infection, unspecified (principal); Z88.2 Allergy status to sulfonamides
CPT/HCPCS: 0240U; 36415; 71045; 80053; 85025; 87651; 93005; 99284; J7120; 93010; 99283

== ENCOUNTER 2025-10-04 08:52 | Emergency (ER) | payer BC ==
[2025-10-04 09:29] LABS: BASOPHILS ABSOLUTE AUTO 0.0 K/mm3 (0.0-0.2); BASOPHILS PERCENT AUTO 0.6 % (0.0-1.0); EOSINOPHILS ABSOLUTE AUTO 0.1 K/mm3 (0.0-0.4); EOSINOPHILS PERCENT AUTO 1.3 % (0.0-6.0); IMMATURE GRAN ABSOLUTE AUTO 0.02 K/mm3 (0.00-0.05); IMMATURE GRAN PERCENT AUTO 0.4 % (0.0-0.4); LYMPHOCYTES ABSOLUTE AUTO 1.8 K/mm3 (1.0-4.8); LYMPHOCYTES PERCENT AUTO 38.7 % (24.0-44.0); MEAN PLATELET VOLUME 9.9 fl (9.4-12.3); MONOCYTES ABSOLUTE AUTO 0.3 K/mm3 (0.0-0.8); MONOCYTES PERCENT AUTO 6.7 % (0.0-8.0); NEUTROPHILS ABSOLUTE AUTO 2.4 K/mm3 (1.8-7.7); NEUTROPHILS PERCENT AUTO 52.3 % (41.0-71.0); NRBC ABSOLUTE 0.00 (0.00-0.02); NRBC PERCENT 0.0 % (0.0-0.2); PLATELET COUNT,PLT 251 K/mm3 (150-400); RED BLOOD CELL COUNT 4.91 M/mm3 (4.10-5.30); WHITE BLOOD CELL COUNT,WBC 4.63 K/mm3 (3.9-11.3)
[2025-10-04 09:44] LABS: APPEARANCE,URINE CLEAR (Clear); GLUCOSE,URINE NEGATIVE (Negative); OCCULT BLOOD,URINE NEGATIVE (Negative)
[2025-10-04 09:52] LABS: A/G RATIO 1.1 (1-2); ALANINE AMINOTRANSFERASE,ALT 27.0 U/L (14-59); ASPARTATE AMNIOTRANSFERASE,AST 18.0 U/L (15-37); BILIRUBIN TOTAL 0.5 mg/dL (0.2-1.0); BLOOD UREA NITROGEN,BUN 19.0 mg/dL (7-18); CARBON DIOXIDE,CO2 27.0 mEq/L (21-32); CHLORIDE,CL 105.0 mEq/L (98-107); CREATININE 0.8 mg/dL (0.55-1.02); EST CRCL DRUG DOSING (CG) 66.19 mL/min; ESTIMATED GFR 85.0 mL/min (>60); GLUCOSE RANDOM 107.0 mg/dL (70-99); PHOSPHORUS 3.9 mg/dL (2.6-4.7); PROTEIN TOTAL,TP 6.7 g/dl (6.4-8.2); SODIUM,NA 141.0 mEq/L (136-145); TROPONIN I HIGH SENSITIVITY 4.0 pg/mL (<=51)
[2025-10-04 09:54] LABS: BUPRENORPHINE SCREEN,URINE NEGATIVE (CUTOFF=10); METHADONE SCREEN, URINE NEGATIVE (CUTOFF=200); METHAMPHETAMINES SCREEN, URINE NEGATIVE (CUTOFF=500); OXYCODONE SCREEN,URINE NEGATIVE (CUT0FF=100); THC SCREEN,URINE 20 NG/ML NEGATIVE (CUTOFF=50)
[2025-10-04 09:54] LABS: ETHANOL BLOOD MEDICAL 0.0 gm% (0.00); POTASSIUM,K 4.2 mEq/L (3.5-5.1)
[2025-10-04 09:57] LABS: AMPHETAMINES SCREEN, URINE NEGATIVE (CUTOFF=500)
[2025-10-04 10:58] LABS: TSH 2.626 uIU/mL (0.358-3.74)
[2025-10-04] MEDS: Sodium Chloride 0.9% 10 ML Syringe FLUSH PRN (14:20)
[2025-10-04] MEDS: Iopamidol 755 Mg/ML 100 ML Bottle IVPUSH ONE (14:20)
[2025-10-04 16:02] VITALS: BP 144/77; PULSE 61
== END 2025-10-04 15:34 | disposition home or self-care (01) ==
LOC: JD.ED 08:52
DX: R00.2 Palpitations (principal); I10 Essential (primary) hypertension; E78.00 Pure hypercholesterolemia, unspecified; E66.9 Obesity, unspecified; Z86.16 Personal history of COVID-19; Z90.49 Acquired absence of other specified parts of digestive tract; Z68.39 Body mass index [BMI] 39.0-39.9, adult
CPT/HCPCS: 36415; 71045; 71275; 80053; 80306; 80307; 81003; 83605; 83735; 84100; 84443; 84484; 85025; 86140; 93005; 93246; 99285; Q9967; 93010; 99283